=== PATIENT | female | born 1955 | race Caucasian/White ===

== ENCOUNTER 2018-05-21 11:20 | Emergency (ER) | payer MEDICARE ==
[2018-05-21] MEDS ORDERED: BABY ASPIRIN 81 MG CHEW PO ONE (11:54)
[2018-05-21] MEDS ORDERED: NITRO-BID 2% UD PACKETS TOP ONE (11:54)
[2018-05-21] MEDS ORDERED: Sodium Chloride 0.9% 1000 ML 1,000 ML IV SCH (12:00)
[2018-05-21] MEDS ORDERED: BABY ASPIRIN 81 MG CHEW ONE (12:02)
--- NOTE | 2018-05-21 12:02 | ERPHSYRPT ---
- History of Present Illness Time Seen by Provider: 05/21/18 11:45 Historian: patient Physician History: PATIENT WITH A HISTORY OF CORONARY ARTERY DISEASE, ATRIAL FIBRILLATION, PACEMAKER, DEFIBRILLATOR COMPLAINS OF SUBSTERNAL CHEST PAINS SINCE LAST NIGHT INTERMITTENT. DENIES DYSPNEA, DIAPHORESIS OR CHEST PAIN UPON ARRIVAL. STATES PAIN SCALE 4/10. Timing/Duration: yesterday Quality: pressure Location: substernal Chest Pain Radiation: no radiation Severity of Pain-Max: mild Severity of Pain-Current: none Modifying Factors: Improves With: nothing Associated Symptoms: denies symptoms Prior Chest Pain/Cardiac Workup: stress test Nitro Today/Relief: no nitro taken today Aspirin Treatment Today: 81 mg x 4, provided by ED Allergies/Adverse Reactions: lorazepam Adverse Reaction (Intermediate, Verified 05/21/18 12:43) "made me weird" Home Medications: Alprazolam 1 mg [Xanax 1 mg] 2 mg PO HSPRN PRN 03/30/13 [History] Amlodipine Besylate 5 mg [Norvasc 5 mg] 5 mg PO HS 03/30/13 [History] Carvedilol 3.125 mg [Coreg 3.125 MG] 12.5 mg PO BID 03/30/13 [History] Furosemide 40 mg [Lasix 40 MG] 40 mg PO DAILY 03/30/13 [History] Lisinopril 10 mg [Zestril 10 MG] 10 mg PO BID 03/30/13 [History] Amlodipine Besylate 2.5 mg PO BID 05/21/18 [History] Atorvastatin Calcium 80 mg PO DAILY 05/21/18 [History] Doxycycline Hyclate 100 mg [Vibramycin 100 MG] 100 mg PO BID 05/21/18 [ History] Levothyroxine Sodium 50 mcg PO DAILY 05/21/18 [History] Potassium Chloride 10 meq PO DAILY 05/21/18 [History] Rivaroxaban [Xarelto] 20 mg PO DAILY 05/21/18 [History] Triamcinolone 0.1% Cream [Kenalog 0.1% Cream 15 gm] 15 gm TOP UD 05/21/18 [History] Hx Tetanus, Diphtheria Vaccination/Date Given: Yes Hx Influenza Vaccination/Date Given: Yes Hx Pneumococcal Vaccination/Date Given: Yes - Review of Systems Constitutional: No Symptoms, No Fever, No Chills Eyes: No Symptoms Ears, Nose, & Throat: No Symptoms Respiratory: No Symptoms, No Cough, No Dyspnea Cardiac: Chest Pain, No Edema, No Syncope Abdominal/Gastrointestinal: No Symptoms, No Abdominal Pain, No Nausea, No Vomiting, No Diarrhea Genitourinary Symptoms: No Symptoms, No Dysuria Musculoskeletal: No Symptoms, No Back Pain, No Neck Pain Skin: No Symptoms, No Rash Neurological: No Dizziness, No Focal Weakness, No Sensory Changes Psychological: No Symptoms Endocrine: No Symptoms All Other Systems: Reviewed and Negative - Past Medical History Pertinent Past Medical History: Yes Cardiac History: Arrhythmia, Hypertension Respiratory History: COPD, Emphysema Musculoskeletal History: No Pertinent History GI Medical History: No Pertinent History History: No Pertinent History Psycho-Social History: Anxiety Female Reproductive Disorders: No Pertinent History - Past Surgical History Past Surgical History: Yes Neuro Surgical History: No Pertinent History Cardiac: Internal Defibrillator Respiratory: No Pertinent History Gastrointestinal: Cholecystectomy Other Surgical History: ROTATOR CUFF, T/A - Social History Smoking Status: Former smoker Exposure to second hand smoke: No Drug Use: none Patient Lives Alone: No - Nursing Vital Signs Nursing Vital Signs: Initial Vital Signs Temperature 97.7 F 05/21/18 11:22 Pulse Rate 60 05/21/18 11:22 Respiratory Rate 16 05/21/18 11:22 Blood Pressure 181/76 05/21/18 11:22 O2 Sat by Pulse Oximetry 97 05/21/18 11:22 Pain Scale Pain Intensity 2 - Physical Exam General Appearance: no apparent distress, alert Eye Exam: PERRL/EOMI, eyes nml inspection Ears, Nose, Throat Exam: normal ENT inspection, moist mucous membranes Neck Exam: normal inspection, non-tender, supple, full range of motion Respiratory Exam: normal breath sounds, lungs clear, No respiratory distress Cardiovascular Exam: regular rate/rhythm, normal heart sounds Gastrointestinal/Abdomen Exam: soft, normal bowel sounds, No tenderness, No mass Back Exam: normal inspection, No CVA tenderness, No vertebral tenderness Extremity Exam: normal inspection, normal range of motion, pedal edema (+1) Neurologic Exam: alert, oriented x 3, cooperative, normal mood/affect, sensation nml, No motor deficits Skin Exam: normal color, warm, dry - Course EKG Interpreted by Me: RATE, Sinus Rhythm, NORMAL AXIS (VENTRICULAR PACED RHYTHM RATE 60) - Radiology Exams Chest X-ray Interpretation: Discussed w/ radiologist, Negative Ordered Tests: Active Orders 24 hr Category Date Time 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 STAT Care 05/21/18 11:56 Active EKG-ER Only STAT Care 05/21/18 11:54 Active IV Insertion STAT Care 05/21/18 11:54 Active Oxygen-ED Only NASAL CANNULA 2 lpm Care 05/21/18 11:54 Active CHEST 1 VIEW (PORTABLE) Stat Exams 05/21/18 11:55 Completed CBC W DIFF Stat Lab 05/21/18 12:00 Completed CMP Stat Lab 05/21/18 12:00 Completed NT PRO BNP Stat Lab 05/21/18 12:00 Completed PROTIME WITH INR Stat Lab 05/21/18 11:54 Completed TROPONIN Q3H Lab 05/21/18 12:00 Completed TROPONIN Q3H Lab 05/21/18 15:00 Ordered TROPONIN Q3H Lab 05/21/18 18:00 Ordered TROPONIN Q3H Lab 05/21/18 21:00 Ordered TROPONIN Q3H Lab 05/22/18 00:00 Ordered Medication Summary Generic Name Dose Route Start Last Admin Trade Name Freq PRN Reason Stop Dose Admin Sodium Chloride 1,000 mls @ 50 mls/hr 05/21/18 12:00 05/21/18 12:08 Sodium Chloride 0.9% 1000 Ml IV 06/20/18 11:59 50 mls/hr .Q20H RODRIGO Administration Discontinued Medications Generic Name Dose Route Start Last Admin Trade Name Freq PRN Reason Stop Dose Admin Aspirin 324 mg 05/21/18 11:54 05/21/18 12:07 Baby Aspirin 81 Mg Chew PO 05/21/18 11:55 324 mg STAT ONE Administration Aspirin Confirm 05/21/18 12:02 Baby Aspirin 81 Mg Chew Administered 05/21/18 12:03 Dose 324 mg .ROUTE .STK-MED ONE Morphine Sulfate 4 mg 05/21/18 13:27 05/21/18 13:36 Morphine Sulfate 4 Mg Inj IV 05/21/18 13:28 Not Given STAT ONE Nitroglycerin 1 gm 05/21/18 11:54 05/21/18 12:08 Nitro-Bid 2% Ud Packets TOP 05/21/18 11:55 1 gm STAT ONE Administration Nitroglycerin Confirm 05/21/18 12:03 Nitro-Bid 2% Ud Packets Administered 05/21/18 12:04 Dose 1 gm .ROUTE .STK-MED ONE Nitroglycerin 0.4 mg 05/21/18 13:20 05/21/18 13:28 Nitrostat 0.4 Mg (Ed) SL 05/21/18 13:21 0.4 mg STAT ONE Administration Ondansetron HCl 4 mg 05/21/18 13:27 05/21/18 13:31 Zofran 4 Mg/2 Ml Vial IV 05/21/18 13:28 4 mg STAT ONE Administration Ondansetron HCl Confirm 05/21/18 13:30 Zofran 4 Mg/2 Ml Vial Administered 05/21/18 13:31 Dose 4 mg .ROUTE .STK-MED ONE Lab/Rad Data: Laboratory Result Diagrams 05/21/18 12:00 05/21/18 12:00 Laboratory Results 05/21/18 05/21/18 05/21/18 Range/Units 12:00 12:00 12:00 WBC 6.6 (4.0-10.5) K/mm3 RBC 4.29 (4.1-5.4) M/mm3 Hgb 12.2 (12.0-16.0) gm/dl Hct 38.1 (35-47) % MCV 88.8 (78-100) fl MCH 28.4 (26-32) pg MCHC 32.0 (32-36) g/dl RDW 13.8 (11.5-14.0) % Plt Count 176 (150-450) K/mm3 MPV 11.9 H (6-9.5) fl Gran % 64.8 (36.0-66.0) % Eos # (Auto) 0.19 (0-0.5) Absolute Lymphs (auto) 1.60 (1.0-4.6) Absolute Monos (auto) 0.51 (0.0-1.3) Lymphocytes % 24.3 (24.0-44.0) % Monocytes % 7.7 (0.0-12.0) % Eosinophils % 2.9 (0.00-5.0) % Basophils % 0.3 (0.0-0.4) % Absolute Granulocytes 4.27 (1.4-6.9) Basophils # 0.02 (0-0.4) PT (9.95-12.35) SECONDS INR (0.8-3.0) Sodium 144 (137-145) mmol/L Potassium 3.5 (3.5-5.1) mmol/L Chloride 106 (98-107) mmol/L Carbon Dioxide 28 (22-30) mmol/L Anion Gap 13.4 (5-15) MEQ/L BUN 9 (7-17) mg/dL Creatinine 0.98 (0.52-1.04) mg/dL Estimated GFR > 60.0 ML/MIN Glucose 108 H (74-106) mg/dL Calcium 8.7 (8.4-10.2) mg/dL Total Bilirubin 0.60 (0.2-1.3) mg/dL AST 22 (14-36) U/L ALT 20 (0-35) U/L Alkaline Phosphatase 104 (38-126) U/L Troponin I < 0.012 (0.000-0.034) ng/mL NT-Pro-B Natriuret Pep 1260 H (0-900) pg/mL Serum Total Protein 7.3 (6.3-8.2) g/dL Albumin 4.3 (3.5-5.0) g/dL 05/21/18 Range/Units 11:54 WBC (4.0-10.5) K/mm3 RBC (4.1-5.4) M/mm3 Hgb (12.0-16.0) gm/dl Hct (35-47) % MCV (78-100) fl MCH (26-32) pg MCHC (32-36) g/dl RDW (11.5-14.0) % Plt Count (150-450) K/mm3 MPV (6-9.5) fl Gran % (36.0-66.0) % Eos # (Auto) (0-0.5) Absolute Lymphs (auto) (1.0-4.6) Absolute Monos (auto) (0.0-1.3) Lymphocytes % (24.0-44.0) % Monocytes % (0.0-12.0) % Eosinophils % (0.00-5.0) % Basophils % (0.0-0.4) % Absolute Granulocytes (1.4-6.9) Basophils # (0-0.4) PT 20.0 H (9.95-12.35) SECONDS INR 1.71 (0.8-3.0) Sodium (137-145) mmol/L Potassium (3.5-5.1) mmol/L Chloride (98-107) mmol/L Carbon Dioxide (22-30) mmol/L Anion Gap (5-15) MEQ/L BUN (7-17) mg/dL Creatinine (0.52-1.04) mg/dL Estimated GFR ML/MIN Glucose (74-106) mg/dL Calcium (8.4-10.2) mg/dL Total Bilirubin (0.2-1.3) mg/dL AST (14-36) U/L ALT (0-35) U/L Alkaline Phosphatase (38-126) U/L Troponin I (0.000-0.034) ng/mL NT-Pro-B Natriuret Pep (0-900) pg/mL Serum Total Protein (6.3-8.2) g/dL Albumin (3.5-5.0) g/dL - Progress Progress: improved Progress Note: 05/21/18 14:27 ADMINISTERED NTG 0.4MG SL, NITROPASTE 1" ANTERIOR CHEST WALL Discussed with : Other (DISCUSSED WITH DR CHIN AT 1400 ACCEPTS TRANSFER TO [facility]IA [facility]) - Departure Time of Disposition: 14:50 Departure Disposition: Transfer Clinical Impression: ACUTE CHEST PAIN Condition: Stable Critical Care Time: No Referrals: SUJATHA CONTRERAS [Primary Care Provider] -
[2018-05-21] MEDS ORDERED: Sodium Chloride 0.9% 1000 ML 1,000 ML ONE (12:03)
[2018-05-21] MEDS ORDERED: NITRO-BID 2% UD PACKETS ONE (12:03)
[2018-05-21 12:12] LABS: BASOPHIL % 0.3 % (0.0-0.4); Basophil (Absolute #) 0.02 (0-0.4); Eosinophil % 2.9 % (0.00-5.0); Eosinophil (Absolute #) 0.19 (0-0.5); Granulocyte Absolute (ANC) 4.27 (1.4-6.9); Granulocytes % 64.8 % (36.0-66.0); Hematocrit 38.1 % (35-47); Hemoglobin 12.2 gm/dl (12.0-16.0); Lymphocytes % 24.3 % (24.0-44.0); Mean Cell Volume 88.8 fl (78-100); Mean Corpuscular Hemoglobin 28.4 pg (26-32); Mean Platelet Volume 11.9 fl (6-9.5); Monocyte (Absolute #) 0.51 (0.0-1.3); Monocytes % 7.7 % (0.0-12.0); Platelet Count 176 K/mm3 (150-450); Red Blood Count 4.29 M/mm3 (4.1-5.4); Red Cell Distribution Width 13.8 % (11.5-14.0); White Blood Count 6.6 K/mm3 (4.0-10.5)
--- NOTE | 2018-05-21 12:19 | XRAY ---
Indication: Chest pain and short of breath. History COPD and asthma. Comparison: October 03, 2015. Portable chest is clear again with incidental scattered calcified granulomas. Heart remains borderline enlarged again with left-sided single lead pacemaker. Vascularity normal. Bony thorax intact. Impression: Nonacute chest with chronic features.
[2018-05-21 12:21] LABS: INR 1.71 (0.8-3.0)
[2018-05-21 12:37] LABS: ALBUMIN 4.3 g/dL (3.5-5.0); ALKALINE PHOSPHATASE 104 U/L (38-126); ANION GAP 13.4 MEQ/L (5-15); BLOOD UREA NITROGEN 9 mg/dL (7-17); CHLORIDE 106 mmol/L (98-107); Calcium 8.7 mg/dL (8.4-10.2); Carbon Dioxide 28 mmol/L (22-30); Creatinine 1 0.98 mg/dL (0.52-1.04); Glucose 108 mg/dL (74-106); NT PRO BNP 1260 pg/mL (0-900); Potassium 3.5 mmol/L (3.5-5.1); SGOT/AST 22 U/L (14-36); SGPT/ALT 20 U/L (0-35); SODIUM 144 mmol/L (137-145); Total Protein 7.3 g/dL (6.3-8.2)
[2018-05-21] MEDS ORDERED: Nitrostat 0.4 MG (ED) SL ONE (13:20)
[2018-05-21] MEDS ORDERED: MORPHINE SULFATE 4 MG INJ IV ONE (13:27)
[2018-05-21] MEDS ORDERED: Zofran 4 MG/2 ML VIAL IV ONE (13:27)
[2018-05-21] MEDS ORDERED: Zofran 4 MG/2 ML VIAL ONE (13:30)
[2018-05-21 15:20] VITALS: BP 156/96; PULSE 62; O2SAT 98
== END 2018-05-21 15:29 | disposition short-term general hospital (02) ==
LOC: ED 11:20
DX: R07.9 Chest pain, unspecified (principal); Z79.899 Other long term (current) drug therapy
CPT/HCPCS: 36000; 36415; 71045; 80053; 83880; 84484; 85025; 85610; 93005; 93041; 96360; 96361; 96374; 96375; 99285; J2405; A9270-GY

== ENCOUNTER 2019-07-30 22:34 | Emergency (ER) | payer MEDICARE ==
--- NOTE | 2019-07-30 23:11 | ERPHSYRPT ---
- History of Present Illness Time Seen by Provider: 07/30/19 23:01 Source: patient, family Exam Limitations: no limitations Physician History: INCREASED HX OF DYSPNEA --POS: COPD/CHF HX DENIES CP/P POS: INCREASED SOB WITH ACTIVITY Timing/Duration: week(s) (1), worse Activities at Onset: activity, emotional stress Severity of Dyspnea-Max: mild Severity of Dyspnea-Current: mild Possible Cause: occasional episodes Modifying Factors: Improves With: activity, exertion Associated Symptoms: cough, wheezing, weakness, ankle swelling, leg swelling, No calf pain International travel in last 2 weeks: No Allergies/Adverse Reactions: lorazepam Adverse Reaction (Intermediate, Verified 07/30/19 23:12) "made me weird" Home Medications: Alprazolam 1 mg [Xanax 1 mg] 2 mg PO HSPRN PRN 03/30/13 [History] Carvedilol 3.125 mg [Coreg 3.125 MG] 25 mg PO BID 03/30/13 [History] Levothyroxine Sodium 75 mcg PO DAILY 05/21/18 [History] Potassium Chloride 10 meq PO DAILY 05/21/18 [History] Rivaroxaban [Xarelto] 20 mg PO DAILY 05/21/18 [History] Amitriptyline HCl 25 mg [Elavil 25 mg] 25 mg PO DAILY 07/30/19 [History] Atorvastatin Calcium 80 mg PO 07/30/19 [History] Magnesium Oxide 400 mg [Mag-Ox 400] 400 mg PO DAILY 07/30/19 [History] Sacubitril/Valsartan [Entresto 24 mg-26 mg Tablet] 1 each PO DAILY 07/30/19 [ History] Spironolactone 25 mg [Aldactone 25 MG] 12.5 mg PO DAILY 07/30/19 [History] Hx Tetanus, Diphtheria Vaccination/Date Given: Yes Hx Influenza Vaccination/Date Given: Yes Hx Pneumococcal Vaccination/Date Given: Yes - Review of Systems Constitutional: Fatigue, Other (DYSPNEA) Eyes: No Symptoms Ears, Nose, & Throat: Nose Congestion, Mouth Pain Respiratory: Cough, Dyspnea, Dyspnea on Exertion (REY), Wheezing Cardiac: Edema, No Chest Pain, No Palpitations, No Syncope Abdominal/Gastrointestinal: No Symptoms, No Nausea, No Vomiting, No Diarrhea Genitourinary Symptoms: No Symptoms Musculoskeletal: Back Pain, Neck Pain, Joint Pain Skin: No Symptoms Neurological: No Symptoms, No Dizziness, No Gait Changes, No Headache Psychological: No Symptoms Endocrine: No Symptoms Hematologic/Lymphatic: No Symptoms All Other Systems: Reviewed and Negative - Past Medical History Pertinent Past Medical History: Yes Cardiac History: Arrhythmia, Hypertension Respiratory History: COPD, Emphysema Musculoskeletal History: No Pertinent History GI Medical History: No Pertinent History History: No Pertinent History Psycho-Social History: Anxiety Female Reproductive Disorders: No Pertinent History Other Medical History: CARDIOMYOPATHY - Past Surgical History Past Surgical History: Yes Neuro Surgical History: No Pertinent History Cardiac: Internal Defibrillator Respiratory: No Pertinent History Gastrointestinal: Cholecystectomy Other Surgical History: ROTATOR CUFF, T/A - Social History Smoking Status: Former smoker Exposure to second hand smoke: No Drug Use: none Patient Lives Alone: No - Nursing Vital Signs Nursing Vital Signs: Initial Vital Signs Temperature 98.7 F 07/30/19 22:36 Pulse Rate 95 H 07/30/19 22:36 Respiratory Rate 24 07/30/19 22:36 Blood Pressure 114/57 07/30/19 22:36 O2 Sat by Pulse Oximetry 98 07/30/19 22:36 Pain Scale Pain Intensity 0 - Physical Exam General Appearance: mild distress, obese Eye Exam: PERRL/EOMI Ears, Nose, Throat Exam: hearing grossly normal, normal ENT inspection, normal pharynx, nasal congestion, No pharyngeal erythema Neck Exam: other (POS: DJD WITH DECREASED ROM), No meningismus Respiratory Exam: chest tenderness, diminished breath sounds, prolonged expirations, crackles/rales, wheezing (SCATTERED) Cardiovascular/Chest Exam: regular rate/rhythm, edema (1+ PITTING EDEMA BILATERAL LOWER EXTREMITIES ) Abdominal/Gastrointestinal Exam: soft, normal bowel sounds, No tenderness, No distention, No mass, No guarding Extremity Exam: no calf tenderness, pedal edema Neurologic Exam: alert, oriented x 3, cooperative, 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 tested, normal mood/affect Skin Exam: normal color, No dry, No rash Lymphatic Exam: No adenopathy SpO2 Interpretation: normal SpO2: 94 O2 Delivery: Room Air - Course Nursing assessment & vital signs reviewed: Yes EKG Interpreted by Me: Sinus Rhythm, Non-specific ST Changes Ordered Tests: Active Orders 24 hr Category Date Time Status CHEST 1 VIEW (PORTABLE) Stat Exams 07/30/19 23:25 Taken CBC W DIFF Stat Lab 07/30/19 23:10 Completed CMP Stat Lab 07/30/19 23:10 Completed NT PRO BNP Stat Lab 07/30/19 23:42 Completed TROPONIN Q3H Lab 07/30/19 23:45 Completed TROPONIN Q3H Lab 07/31/19 02:10 Completed TROPONIN Q3H Lab 07/31/19 05:00 Ordered TROPONIN Q3H Lab 07/31/19 08:00 Ordered TROPONIN Q3H Lab 07/31/19 11:00 Ordered TROPONIN Q3H Lab 07/31/19 14:00 Ordered TROPONIN Q3H Lab 07/31/19 17:00 Ordered TROPONIN Q3H Lab 07/31/19 20:00 Ordered TROPONIN Q3H Lab 07/31/19 23:00 Ordered Peak Expiratory Flow Rate ONCE RT 07/31/19 00:00 Active Respiratory Therapy Assessment DAILY RT 07/31/19 00:00 Active Medication Summary Discontinued Medications Generic Name Dose Route Start Last Admin Trade Name Freq PRN Reason Stop Dose Admin Albuterol/Ipratropium 3 ml 07/30/19 23:43 07/30/19 23:56 Duoneb 0.5-3 Mg/3 Ml Neb IH 07/30/19 23:44 3 ml STAT ONE Administration Albuterol/Ipratropium Confirm 07/30/19 23:56 Duoneb 0.5-3 Mg/3 Ml Neb Administered 07/30/19 23:57 Dose 3 ml IH .STK-MED ONE Lab/Rad Data: Laboratory Result Diagrams 07/30/19 23:10 07/30/19 23:10 Laboratory Results 07/31/19 07/30/19 07/30/19 Range/Units 02:10 23:45 23:42 WBC (4.0-10.5) K/mm3 RBC (4.1-5.4) M/mm3 Hgb (12.0-16.0) gm/dl Hct (35-47) % MCV (78-100) fl MCH (26-32) pg MCHC (32-36) g/dl RDW (11.5-14.0) % Plt Count (150-450) K/mm3 MPV (6-9.5) fl Gran % (36.0-66.0) % Eos # (Auto) (0-0.5) Absolute Lymphs (auto) (1.0-4.6) Absolute Monos (auto) (0.0-1.3) Lymphocytes % (24.0-44.0) % Monocytes % (0.0-12.0) % Eosinophils % (0.00-5.0) % Basophils % (0.0-0.4) % Absolute Granulocytes (1.4-6.9) Basophils # (0-0.4) Sodium (137-145) mmol/L Potassium (3.5-5.1) mmol/L Chloride (98-107) mmol/L Carbon Dioxide (22-30) mmol/L Anion Gap (5-15) MEQ/L BUN (7-17) mg/dL Creatinine (0.52-1.04) mg/dL Estimated GFR ML/MIN Glucose (74-106) mg/dL Calcium (8.4-10.2) mg/dL Total Bilirubin (0.2-1.3) mg/dL AST (14-36) U/L ALT (0-35) U/L Alkaline Phosphatase (38-126) U/L Troponin I 0.030 0.030 (0.000-0.034) ng/mL NT-Pro-B Natriuret Pep 686 (0-900) pg/mL Serum Total Protein (6.3-8.2) g/dL Albumin (3.5-5.0) g/dL Influenza Type A Ag (NEGATIVE) Influenza Type B Ag (NEGATIVE) RSV (PCR) (Negative) Group A Strep Antibody (NEGATIVE) 07/30/19 07/30/19 07/30/19 Range/Units 23:10 23:10 00:25 WBC 6.4 (4.0-10.5) K/mm3 RBC 3.60 L (4.1-5.4) M/mm3 Hgb 10.3 L (12.0-16.0) gm/dl Hct 33.0 L (35-47) % MCV 91.7 (78-100) fl MCH 28.6 (26-32) pg MCHC 31.2 L (32-36) g/dl RDW 13.4 (11.5-14.0) % Plt Count 199 (150-450) K/mm3 MPV 12.4 H (6-9.5) fl Gran % 60.6 (36.0-66.0) % Eos # (Auto) 0.23 (0-0.5) Absolute Lymphs (auto) 1.45 (1.0-4.6) Absolute Monos (auto) 0.83 (0.0-1.3) Lymphocytes % 22.6 L (24.0-44.0) % Monocytes % 12.9 H (0.0-12.0) % Eosinophils % 3.6 (0.00-5.0) % Basophils % 0.3 (0.0-0.4) % Absolute Granulocytes 3.89 (1.4-6.9) Basophils # 0.02 (0-0.4) Sodium 139 (137-145) mmol/L Potassium 4.4 (3.5-5.1) mmol/L Chloride 106 (98-107) mmol/L Carbon Dioxide 26 (22-30) mmol/L Anion Gap 11.6 (5-15) MEQ/L BUN 14 (7-17) mg/dL Creatinine 1.13 H (0.52-1.04) mg/dL Estimated GFR 51.9 ML/MIN Glucose 115 H (74-106) mg/dL Calcium 8.8 (8.4-10.2) mg/dL Total Bilirubin 0.80 (0.2-1.3) mg/dL AST 32 (14-36) U/L ALT 23 (0-35) U/L Alkaline Phosphatase 66 (38-126) U/L Troponin I (0.000-0.034) ng/mL NT-Pro-B Natriuret Pep (0-900) pg/mL Serum Total Protein 6.2 L (6.3-8.2) g/dL Albumin 3.4 L (3.5-5.0) g/dL Influenza Type A Ag NEGATIVE (NEGATIVE) Influenza Type B Ag NEGATIVE (NEGATIVE) RSV (PCR) NEGATIVE (Negative) Group A Strep Antibody NEGATIVE (NEGATIVE) - Progress Progress: improved, re-examined Air Movement: good Blood Culture(s) Obtained: No Antibiotics given: No Counseled pt/family regarding: lab results, diagnosis, need for follow-up ( FOLLOW UP WITH PRIVATE ACCOUNT SUPPORT REP NEXT WEEK NOTE: PATIENT REFUSES HOSPITAL- -23 OBS AT THIS TIME STATES THAT SHE IS BETTER AND WISHES TO GO HOME ), rad results - Departure Departure Disposition: Home Clinical Impression: COPD exacerbation, Dyspnea on effort CHF (congestive heart failure) Qualifiers: Heart failure type: systolic Heart failure chronicity: acute on chronic Qualified Code(s): I50.23 - Acute on chronic systolic (congestive) heart failure Condition: Stable Critical Care Time: Yes Critical Care Time(excluding separately billable procedures): Critical 30-74 mins Referrals: WILLOW QUILES [Primary Care Provider] - Instructions: Chronic Obstructive Pulmonary Disease, Heart Failure
[2019-07-30 23:35] LABS: Absolute Neutrophil Ct (ANC) 3.89 (1.4-6.9); BASOPHIL % 0.3 % (0.0-0.4); Basophil (Absolute #) 0.02 (0-0.4); Eosinophil % 3.6 % (0.00-5.0); Eosinophil (Absolute #) 0.23 (0-0.5); Hemoglobin 10.3 gm/dl (12.0-16.0); Lymphocyte (Absolute #) 1.45 (1.0-4.6); Lymphocytes % 22.6 % (24.0-44.0); Mean Cell Volume 91.7 fl (78-100); Mean Corpuscular Hemoglobin 28.6 pg (26-32); Mean Corpuscular Hgb Concent. 31.2 g/dl (32-36); Mean Platelet Volume 12.4 fl (6-9.5); Monocyte (Absolute #) 0.83 (0.0-1.3); Monocytes % 12.9 % (0.0-12.0); Neutrophil % 60.6 % (36.0-66.0); Platelet Count 199 K/mm3 (150-450); Red Cell Distribution Width 13.4 % (11.5-14.0); White Blood Count 6.4 K/mm3 (4.0-10.5)
[2019-07-30] MEDS ORDERED: DUONEB 0.5-3 MG/3 ml Neb IH ONE ×2 (23:43→23:56)
[2019-07-30 23:46] LABS: ALBUMIN 3.4 g/dL (3.5-5.0); ANION GAP 11.6 MEQ/L (5-15); BILIRUBIN,TOTAL 0.8 mg/dL (0.2-1.3); Calcium 8.8 mg/dL (8.4-10.2); Creatinine 1 1.13 mg/dL (0.52-1.04); Potassium 4.4 mmol/L (3.5-5.1); Total Protein 6.2 g/dL (6.3-8.2)
[2019-07-31 01:23] LABS: Group A Strep NEGATIVE (NEGATIVE); INFLUENZA A NEGATIVE (NEGATIVE); INFLUENZA B NEGATIVE (NEGATIVE); RESPIRATORY SYNCTIAL VIRUS NEGATIVE (Negative)
[2019-07-31 05:09] VITALS: BP 111/85; PULSE 91; O2SAT 96
--- NOTE | 2019-07-31 08:51 | XRAY ---
Indication: Short of breath and cough. Comparison: May 21, 2018. Portable chest remains clear again with incidental scattered calcified granulomas. Heart remains borderline enlarged with left sided AICD. Bony thorax intact. No new/acute findings. Impression: Stable nonacute chest with chronic features.
== END 2019-07-31 05:09 | disposition home or self-care (01) ==
LOC: ED 22:34
DX: I50.9 Heart failure, unspecified (principal); Z79.899 Other long term (current) drug therapy; J44.9 Chronic obstructive pulmonary disease, unspecified; I10 Essential (primary) hypertension; F41.9 Anxiety disorder, unspecified
CPT/HCPCS: 36415; 71045; 80053; 83880; 84484; 85025; 87631; 87651; 94150; 94640; 99284; 99291; A9270-GY

== ENCOUNTER 2022-07-20 08:37 | Observation (INO) | payer MEDICARE, OTHER ==
[2022-07-20] MEDS ORDERED: Sodium Chloride 0.9% 1000 ML 1,000 ML ONE (08:58)
[2022-07-20] MEDS ORDERED: Zofran 4 MG/2 ML VIAL ONE (08:58)
[2022-07-20] MEDS ORDERED: Zofran 4 MG/2 ML VIAL IV ONE (09:03)
[2022-07-20] MEDS ORDERED: Sodium Chloride 0.9% 1000 ML 1,000 ML IV STA (09:03)
[2022-07-20 09:04] LABS: Absolute Neutrophil Ct (ANC) 3.49 x10^3/uL (1.4-6.9); Basophil (Absolute #) 0.03 x10^3/uL (0-0.4); Eosinophil (Absolute #) 0.11 x10^3/uL (0-0.5); Hematocrit 34.8 % (35-47); Hemoglobin 10.7 g/dL (12.0-16.0); Lymphocyte (Absolute #) 1.15 x10^3/uL (1.0-4.6); Lymphocytes % 20.9 % (24.0-44.0); Mean Cell Volume 100.3 fL (78-100); Mean Corpuscular Hemoglobin 30.8 pg (26-32); Mean Corpuscular Hgb Concent. 30.7 g/dL (32-36); Monocyte (Absolute #) 0.69 x10^3/uL (0.0-1.3); Monocytes % 12.5 % (0.0-12.0); Neutrophil % 63.6 % (36.0-66.0); Platelet Count 271 x10^3/uL (150-450); Red Blood Count 3.47 x10^6/uL (4.1-5.4); Red Cell Distribution Width 13.5 % (11.5-14.0); White Blood Count 5.5 x10^3/uL (4.0-10.5)
[2022-07-20 09:19] LABS: ALBUMIN 3.6 g/dL (3.5-5.0); BILIRUBIN,TOTAL 0.7 mg/dL (0.2-1.3); Calcium 7.7 mg/dL (8.4-10.2); Creatinine 1 2.54 mg/dL (0.52-1.04); EST GLOMERULAR FILTRATION RATE 20.2 ML/MIN; Potassium 3.1 mmol/L (3.5-5.1); Total Protein 6.8 g/dL (6.3-8.2)
[2022-07-20] MEDS ORDERED: MORPHINE SULFATE 4 MG INJ IV ONE (09:29)
[2022-07-20] MEDS ORDERED: Reglan 10 MG/2 ML IV ONE (09:29)
[2022-07-20] MEDS ORDERED: MORPHINE SULFATE 4 MG INJ ONE (09:50)
[2022-07-20] MEDS ORDERED: Reglan 10 MG/2 ML ONE (09:50)
[2022-07-20 09:52] LABS: MAGNESIUM 1.3 mg/dL (1.6-2.3)
[2022-07-20] MEDS ORDERED: MAGNESIUM SULF 2 G/50 ML BAG 2 GM/50 ML PIGGYBACK IV ONE (10:18)
[2022-07-20] MEDS ORDERED: Klor Con PO ONE ×2 (10:19→10:22)
[2022-07-20] MEDS ORDERED: Magnesium 1 Gm / 100 Ml D5W*** 0 ML IV ONE (10:22)
[2022-07-20 11:00] LABS: INFLUENZA A NEGATIVE (NEGATIVE); INFLUENZA B NEGATIVE (NEGATIVE); RESPIRATORY SYNCTIAL VIRUS NEGATIVE (Negative); SARS-CoV-2 Xpert Express NEGATIVE (NEGATIVE)
[2022-07-20 11:22] LABS: Mucus SLIGHT /HPF (NEGATIVE); WBC 0-2 /HPF (0-5)
[2022-07-20 11:23] LABS: Appearance CLEAR (CLEAR); Bilirubin NEGATIVE (NEGATIVE); Dipstick done @ ? MAIN LAB; Glucose NEGATIVE (NEGATIVE); Ketones NEGATIVE (NEGATIVE); Nitrite NEGATIVE (NEGATIVE); Ph 5.5 (5-6); Protein,Urine Dip NEGATIVE (Negative); RBC NEGATIVE Ery/ul (0-5); Specific Gravity 1.025 (1.005-1.025); Urine Cultured Indicated? NO; Urobilinogen 0.2 mg/dL (0-1)
--- NOTE | 2022-07-20 12:59 | ERPHSYRPT ---
- History of Present Illness Time Seen by Provider: 07/20/22 09:28 Historian: patient Exam Limitations: no limitations Patient Subjective Stated Complaint: C/O N/V X 3 days and diarrhea started this morning. Also c/o chills. Triage Nursing Assessment: Patient brought back to ED in W/C. No SOB. She is alert and oriented. Wound vac noted to LLE; patient states Dr. Edwards is the only person allowed to handle the wound vac. Patient's skin is dry and loose. She is cough and dry heaving during assessment. Physician History: 67 years old morbidly obese female with history of atrial fibrillation on Xarelto, COPD, congestive heart failure presented to the ER with chief complaint of nausea vomiting with abdominal pain going on for the last 3 days. Patient reports she has a wound VAC on left lower leg after she fell and is under treatment with orthopedic surgery, was given doxycycline but she started to feel nausea vomiting with abdominal discomfort, she stopped taking 3 days ago and has been taking Zofran with no relief of symptoms. Reports generalized abdominal cramping without any significant aggravating or relieving factor and started to have couple of episodes of loose stool this morning. Subjective feeling of fever and chills as well. Has chronic cough which is not any worse than usual. Timing/Duration: day(s) (3), gradual onset, worse Activities at Onset: rest Quality: cramping Abdominal Pain Onset Location: generalized abdomen Pain Radiation: no radiation Severity of Pain-Max: moderate Severity of Pain-Current: moderate Modifying Factors: Worsens With: vomiting Associated Symptoms: diarrhea, fever/chills, nausea, vomiting Previous symptoms: no prior history Allergies/Adverse Reactions: lorazepam Adverse Reaction (Intermediate, Verified 07/20/22 08:41) "made me weird" Home Medications: Rivaroxaban [Xarelto] 20 mg PO DAILY 05/21/18 [History] Atorvastatin Calcium 80 mg PO HS 07/30/19 [History] ALPRAZolam [Alprazolam] 1 tab PO BID 07/20/22 [History] Allopurinol 100 mg [Zyloprim 100 mg] 1 tab PO DAILY 07/20/22 [History] Amiodarone HCl 1 tab PO DAILY 07/20/22 [History] Bumetanide 1 tab PO BID 07/20/22 [History] Carvedilol 12.5 mg [Coreg 12.5 mg] 1 tab PO BID 07/20/22 [History] Cholecalciferol (Vitamin D3) [D3-5000] 1 cap PO DAILY 07/20/22 [History] Ezetimibe 10 mg [Zetia 10 MG] 1 tab PO HS 07/20/22 [History] Levothyroxine Sodium 112 Mcg [Synthroid 112 Mcg] 1 tab PO DAILY 07/20/22 [History] Ondansetron [Ondansetron Odt ] 1 tab PO Q8H PRN PRN 07/20/22 [History] Potassium Chloride Tab* [Klor Con] 3 tab PO DAILY 07/20/22 [History] Hx Tetanus, Diphtheria Vaccination/Date Given: Yes Hx Influenza Vaccination/Date Given: Yes Hx Pneumococcal Vaccination/Date Given: Yes Immunizations Up to Date: Yes Travel Risk - International Travel Have you traveled outside of the country in past 3 weeks: No - Coronavirus Screening Are you exhibiting any of the following symptoms?: Yes Symptoms: Vomiting/Diarrhea - Vaccine Status Have you recieved a Covid-19 vaccination: Yes 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: [employer] - Review of Systems Constitutional: Fever, Chills, Fatigue, Weakness Eyes: No Symptoms Ears, Nose, & Throat: No Symptoms Respiratory: Cough Cardiac: No Symptoms Abdominal/Gastrointestinal: Abdominal Pain, Nausea, Vomiting, Diarrhea Genitourinary Symptoms: No Symptoms Musculoskeletal: Arthralgias Skin: Skin Lesions Neurological: No Symptoms Psychological: Anxiety Endocrine: No Symptoms Hematologic/Lymphatic: No Symptoms Immunological/Allergic: No Symptoms - Past Medical History Pertinent Past Medical History: Yes Cardiac History: Arrhythmia, High Cholesterol, Hypertension Respiratory History: COPD, Emphysema Endocrine Medical History: Hypothyroidism Musculoskeletal History: No Pertinent History GI Medical History: No Pertinent History History: No Pertinent History Psycho-Social History: Anxiety Female Reproductive Disorders: No Pertinent History Other Medical History: CARDIOMYOPATHY, Gout - Past Surgical History Past Surgical History: Yes Neuro Surgical History: No Pertinent History Cardiac: Internal Defibrillator Respiratory: No Pertinent History Gastrointestinal: Cholecystectomy Musculoskeletal: Orthopedic Surgery Other Surgical History: ROTATOR CUFF, T/A - Social History Smoking Status: Former smoker Exposure to second hand smoke: No Drug Use: none Patient Lives Alone: No - Nursing Vital Signs Nursing Vital Signs: Initial Vital Signs Temperature 97.8 F 07/20/22 08:44 Pulse Rate 62 07/20/22 08:44 Respiratory Rate 17 07/20/22 08:44 Blood Pressure 152/68 07/20/22 08:44 O2 Sat by Pulse Oximetry 97 07/20/22 08:44 Pain Scale Pain Intensity 0 - Physical Exam General Appearance: no apparent distress, alert Eye Exam: PERRL/EOMI Ears, Nose, Throat Exam: normal ENT inspection, pharynx normal Neck Exam: normal inspection, supple, full range of motion Respiratory Exam: normal breath sounds, lungs clear Cardiovascular Exam: regular rate/rhythm, normal heart sounds Gastrointestinal/Abdomen Exam: soft, normal bowel sounds, tenderness (Mild diffuse generalized tenderness without guarding or rebound tenderness) Back Exam: normal inspection Extremity Exam: normal range of motion, pelvis stable, other (Left leg wound VAC in place) Neurologic Exam: alert, oriented x 3, cooperative Skin Exam: normal color SpO2 Interpretation: normal SpO2: 95 O2 Delivery: Room Air Ordered Tests: Active Orders 24 hr Category Date Time Status IV Insertion STAT Care 07/20/22 09:29 Active ABDOMEN AND PELVIS W/0 CONTRAS [CT] Stat Exams 07/20/22 09:29 Taken BNP [NT PRO BNP] Stat Lab 07/20/22 09:00 Completed CBC W DIFF Stat Lab 07/20/22 09:03 Completed CMP Stat Lab 07/20/22 09:03 Completed LIPASE Stat Lab 07/20/22 09:00 Completed Lactic Acid Stat Lab 07/20/22 09:41 Completed MAG [MAGNESIUM] Stat Lab 07/20/22 09:00 Completed TROPONIN Q3H Lab 07/20/22 09:00 Completed TROPONIN Q3H Lab 07/20/22 12:45 Received TROPONIN Q3H Lab 07/20/22 15:30 Ordered TROPONIN Q3H Lab 07/20/22 18:30 Ordered UA W/RFX CULTURE Stat Lab 07/20/22 11:13 Completed Medication Summary Discontinued Medications Generic Name Dose Route Start Last Admin Trade Name Freq PRN Reason Stop Dose Admin Sodium Chloride Confirm 07/20/22 08:58 Sodium Chloride 0.9% 1000 Ml Administered 07/20/22 08:59 Dose 1,000 mls @ ud .ROUTE .STK-MED ONE Sodium Chloride 1,000 mls @ 999 mls/hr 07/20/22 09:03 07/20/22 10:13 Sodium Chloride 0.9% 1000 Ml IV 07/20/22 10:03 Infused .Q1H1M STA Infusion Magnesium Sulfate/Water 2 gm in 50 mls @ 100 mls/hr 07/20/22 10:18 07/20/22 11:04 Magnesium Sulf 2 G/50 Ml Bag IV 07/20/22 10:47 Infused ONCE ONE Infusion Magnesium Sulfate/Dextrose Confirm 07/20/22 10:22 Magnesium 1 Gm / 100 Ml D5w Administered 07/20/22 10:23 Dose 100 mls @ ud IV .STK-MED ONE Metoclopramide HCl 10 mg 07/20/22 09:29 07/20/22 09:51 Metoclopramide Hcl 10 Mg/2 Ml Vial IV 07/20/22 09:30 10 mg STAT ONE Administration Metoclopramide HCl Confirm 07/20/22 09:50 Metoclopramide Hcl 10 Mg/2 Ml Vial Administered 07/20/22 09:51 Dose 10 mg .ROUTE .STK-MED ONE Morphine Sulfate 4 mg 07/20/22 09:29 07/20/22 09:51 Morphine Sulfate 4 Mg/Ml Injection IV 07/20/22 09:30 4 mg STAT ONE Administration Morphine Sulfate Confirm 07/20/22 09:50 Morphine Sulfate 4 Mg/Ml Injection Administered 07/20/22 09:51 Dose 4 mg .ROUTE .STK-MED ONE Ondansetron HCl Confirm 07/20/22 08:58 Ondansetron Hcl 4 Mg/2 Ml Vial Administered 07/20/22 08:59 Dose 4 mg .ROUTE .STK-MED ONE Ondansetron HCl 4 mg 07/20/22 09:03 07/20/22 09:04 Ondansetron Hcl 4 Mg/2 Ml Vial IV 07/20/22 09:04 4 mg STAT ONE Administration Potassium Chloride 40 meq 07/20/22 10:19 07/20/22 10:23 Potassium Chloride Tab 10 Meq Tab PO 07/20/22 10:20 40 meq STAT ONE Administration Potassium Chloride Confirm 07/20/22 10:22 Potassium Chloride Tab 10 Meq Tab Administered 07/20/22 10:23 Dose 40 meq PO .STK-MED ONE Lab/Rad Data: Laboratory Result Diagrams 07/20/22 09:03 07/20/22 09:03 Laboratory Results 11/07/20/22 07/20/22 Range/Units 11:13 10:24 09:41 WBC (4.0-10.5) x10^3/uL RBC (4.1-5.4) x10^6/uL Hgb (12.0-16.0) g/dL Hct (35-47) % MCV (78-100) fL MCH (26-32) pg MCHC (32-36) g/dL RDW (11.5-14.0) % Plt Count (150-450) x10^3/uL MPV (7.5-11.0) fL Gran % (36.0-66.0) % Immature Gran % (Auto) (0.00-0.4) % Nucleat RBC Rel Count (0.00-0.1) % Eos # (Auto) (0-0.5) x10^3/uL Immature Gran # (Auto) (0.00-0.03) x10^3u/L Absolute Lymphs (auto) (1.0-4.6) x10^3/uL Absolute Monos (auto) (0.0-1.3) x10^3/uL Absolute Nucleated RBC (0.00-0.01) x10^3u/L Lymphocytes % (24.0-44.0) % Monocytes % (0.0-12.0) % Eosinophils % (0.00-5.0) % Basophils % (0.0-0.4) % Absolute Granulocytes (1.4-6.9) x10^3/uL Basophils # (0-0.4) x10^3/uL Sodium (137-145) mmol/L Potassium (3.5-5.1) mmol/L Chloride (98-107) mmol/L Carbon Dioxide (22-30) mmol/L Anion Gap (5-15) MEQ/L BUN (7-17) mg/dL Creatinine (0.52-1.04) mg/dL Estimated GFR ML/MIN Glucose (74-106) mg/dL Lactic Acid 2.1 H (0.4-2.0) Calcium (8.4-10.2) mg/dL Magnesium (1.6-2.3) mg/dL Total Bilirubin (0.2-1.3) mg/dL AST (14-36) U/L ALT (0-35) U/L Alkaline Phosphatase (38-126) U/L Troponin I (0.000-0.034) ng/mL NT-Pro-B Natriuret Pep (0-900) pg/mL Serum Total Protein (6.3-8.2) g/dL Albumin (3.5-5.0) g/dL Lipase (23-300) U/L Urinalys Dipstick Clnc MAIN LAB Urine Color YELLOW (YELLOW) Urine Appearance CLEAR (CLEAR) Urine pH 5.5 (5-6) Ur Specific [place] 1.025 (1.005-1.025) POC Urine Protein Conf NEGATIVE (Negative) Urine Ketones NEGATIVE (NEGATIVE) Urine Nitrite NEGATIVE (NEGATIVE) Urine Bilirubin NEGATIVE (NEGATIVE) Urine Urobilinogen 0.2 (0-1) mg/dL Urine Leukocytes NEGATIVE (NEGATIVE) Urine WBC (Auto) 0-2 (0-5) /HPF Urine RBC (Auto) NONE (0-2) /HPF U Hyaline Cast (Auto) 6-10 A (0-2) /LPF U Epithel Cells (Auto) NONE (FEW) /HPF Urine Bacteria (Auto) NONE (NEGATIVE) /HPF Urine RBC NEGATIVE (0-5) [place]/ul Urine Mucus (Auto) SLIGHT A (NEGATIVE) /HPF Ur Culture Indicated? NO Urine Glucose NEGATIVE (NEGATIVE) mg/dL Influenza Type A Ag NEGATIVE (NEGATIVE) Influenza Type B Ag NEGATIVE (NEGATIVE) RSV (PCR) NEGATIVE (Negative) SARS-CoV-2 (PCR) NEGATIVE (NEGATIVE) 07/20/22 07/20/22 07/20/22 Range/Units 09:03 09:03 09:00 WBC 5.5 (4.0-10.5) x10^3/uL RBC 3.47 L (4.1-5.4) x10^6/uL Hgb 10.7 L (12.0-16.0) g/dL Hct 34.8 L (35-47) % MCV 100.3 H (78-100) fL MCH 30.8 (26-32) pg MCHC 30.7 L (32-36) g/dL RDW 13.5 (11.5-14.0) % Plt Count 271 (150-450) x10^3/uL MPV 11.0 (7.5-11.0) fL Gran % 63.6 (36.0-66.0) % Immature Gran % (Auto) 0.5 H (0.00-0.4) % Nucleat RBC Rel Count 0.0 (0.00-0.1) % Eos # (Auto) 0.11 (0-0.5) x10^3/uL Immature Gran # (Auto) 0.03 (0.00-0.03) x10^3u/L Absolute Lymphs (auto) 1.15 (1.0-4.6) x10^3/uL Absolute Monos (auto) 0.69 (0.0-1.3) x10^3/uL Absolute Nucleated RBC 0.00 (0.00-0.01) x10^3u/L Lymphocytes % 20.9 L (24.0-44.0) % Monocytes % 12.5 H (0.0-12.0) % Eosinophils % 2.0 (0.00-5.0) % Basophils % 0.5 (0.0-0.4) % Absolute Granulocytes 3.49 (1.4-6.9) x10^3/uL Basophils # 0.03 (0-0.4) x10^3/uL Sodium 136 L (137-145) mmol/L Potassium 3.1 L (3.5-5.1) mmol/L Chloride 97 L (98-107) mmol/L Carbon Dioxide 28 (22-30) mmol/L Anion Gap 13.0 (5-15) MEQ/L BUN 34 H (7-17) mg/dL Creatinine 2.54 H (0.52-1.04) mg/dL Estimated GFR 20.2 ML/MIN Glucose 140 H (74-106) mg/dL Lactic Acid (0.4-2.0) Calcium 7.7 L (8.4-10.2) mg/dL Magnesium (1.6-2.3) mg/dL Total Bilirubin 0.70 (0.2-1.3) mg/dL AST 58 H (14-36) U/L ALT 42 H (0-35) U/L Alkaline Phosphatase 130 H (38-126) U/L Troponin I 0.022 (0.000-0.034) ng/mL NT-Pro-B Natriuret Pep (0-900) pg/mL Serum Total Protein 6.8 (6.3-8.2) g/dL Albumin 3.6 (3.5-5.0) g/dL Lipase (23-300) U/L Urinalys Dipstick Clnc Urine Color (YELLOW) Urine Appearance (CLEAR) Urine pH (5-6) Ur Specific [place] (1.005-1.025) POC Urine Protein Conf (Negative) Urine Ketones (NEGATIVE) Urine Nitrite (NEGATIVE) Urine Bilirubin (NEGATIVE) Urine Urobilinogen (0-1) mg/dL Urine Leukocytes (NEGATIVE) Urine WBC (Auto) (0-5) /HPF Urine RBC (Auto) (0-2) /HPF U Hyaline Cast (Auto) (0-2) /LPF U Epithel Cells (Auto) (FEW) /HPF Urine Bacteria (Auto) (NEGATIVE) /HPF Urine RBC (0-5) [place]/ul Urine Mucus (Auto) (NEGATIVE) /HPF Ur Culture Indicated? Urine Glucose (NEGATIVE) mg/dL Influenza Type A Ag (NEGATIVE) Influenza Type B Ag (NEGATIVE) RSV (PCR) (Negative) SARS-CoV-2 (PCR) (NEGATIVE) 07/20/22 Range/Units 09:00 WBC (4.0-10.5) x10^3/uL RBC (4.1-5.4) x10^6/uL Hgb (12.0-16.0) g/dL Hct (35-47) % MCV (78-100) fL MCH (26-32) pg MCHC (32-36) g/dL RDW (11.5-14.0) % Plt Count (150-450) x10^3/uL MPV (7.5-11.0) fL Gran % (36.0-66.0) % Immature Gran % (Auto) (0.00-0.4) % Nucleat RBC Rel Count (0.00-0.1) % Eos # (Auto) (0-0.5) x10^3/uL Immature Gran # (Auto) (0.00-0.03) x10^3u/L Absolute Lymphs (auto) (1.0-4.6) x10^3/uL Absolute Monos (auto) (0.0-1.3) x10^3/uL Absolute Nucleated RBC (0.00-0.01) x10^3u/L Lymphocytes % (24.0-44.0) % Monocytes % (0.0-12.0) % Eosinophils % (0.00-5.0) % Basophils % (0.0-0.4) % Absolute Granulocytes (1.4-6.9) x10^3/uL Basophils # (0-0.4) x10^3/uL Sodium (137-145) mmol/L Potassium (3.5-5.1) mmol/L Chloride (98-107) mmol/L Carbon Dioxide (22-30) mmol/L Anion Gap (5-15) MEQ/L BUN (7-17) mg/dL Creatinine (0.52-1.04) mg/dL Estimated GFR ML/MIN Glucose (74-106) mg/dL Lactic Acid (0.4-2.0) Calcium (8.4-10.2) mg/dL Magnesium 1.3 L (1.6-2.3) mg/dL Total Bilirubin (0.2-1.3) mg/dL AST (14-36) U/L ALT (0-35) U/L Alkaline Phosphatase (38-126) U/L Troponin I (0.000-0.034) ng/mL NT-Pro-B Natriuret Pep 912 H (0-900) pg/mL Serum Total Protein (6.3-8.2) g/dL Albumin (3.5-5.0) g/dL Lipase 148 (23-300) U/L Urinalys Dipstick Clnc Urine Color (YELLOW) Urine Appearance (CLEAR) Urine pH (5-6) Ur Specific [place] (1.005-1.025) POC Urine Protein Conf (Negative) Urine Ketones (NEGATIVE) Urine Nitrite (NEGATIVE) Urine Bilirubin (NEGATIVE) Urine Urobilinogen (0-1) mg/dL Urine Leukocytes (NEGATIVE) Urine WBC (Auto) (0-5) /HPF Urine RBC (Auto) (0-2) /HPF U Hyaline Cast (Auto) (0-2) /LPF U Epithel Cells (Auto) (FEW) /HPF Urine Bacteria (Auto) (NEGATIVE) /HPF Urine RBC (0-5) [place]/ul Urine Mucus (Auto) (NEGATIVE) /HPF Ur Culture Indicated? Urine Glucose (NEGATIVE) mg/dL Influenza Type A Ag (NEGATIVE) Influenza Type B Ag (NEGATIVE) RSV (PCR) (Negative) SARS-CoV-2 (PCR) (NEGATIVE) - Progress Progress: improved, re-examined Progress Note: 07/20/22 12:57 She is given gentle hydration along with symptomatic treatment, feeling much better on reevaluation but still have nausea. Has normal white count, chemistries consistent with CKD stable creatinine around 2.5. She has low potassium of 3.1 and magnesium of 1.3 for which she is getting replacements. She has some elevation in transaminases but's normal total bili. I have obtained CT abdomen pelvis which showed some chronic findings but no acute process. Discussed with Dr. Sandra and patient is being admitted for electrolyte and fluid replacement along with symptomatic management. Discussed with : Kacey Will see patient in: hospital (observation) Counseled pt/family regarding: lab results, diagnosis, need for follow-up, rad results - Departure Departure Disposition: Observation Clinical Impression: Gastroenteritis, Hypomagnesemia, Hypokalemia Condition: Stable Critical Care Time: No Referrals: CANDICE ROCKWELL, DO [Primary Care Provider] - Follow up/PCP as directed
[2022-07-20] MEDS: POTASSIUM CHLORIDE 20 mEq IN WATER 100ML 20 MEQ/100 ML BAG IV SCH ×2 (13:14→15:58)
[2022-07-20] MEDS ORDERED: Sodium Chloride 0.9% 1000 ML 1,000 ML IV SCH (13:15)
[2022-07-20] MEDS ORDERED: MORPHINE SULFATE 2 MG INJ IV PRN (13:47)
[2022-07-20] MEDS ORDERED: TYLENOL 325 MG PO PRN (13:47)
[2022-07-20] MEDS ORDERED: DUONEB 0.5-3 MG/3 ml Neb IH PRN (13:47)
--- NOTE | 2022-07-20 18:59 | XRAY ---
Indication: Vomiting, chills, and weakness. Multiple contiguous axial images obtained through the abdomen and pelvis without contrast. Comparison: November 19, 2014 Lung bases demonstrates mild dependent atelectasis. Stable right lower lobe calcified granuloma. No infiltrate or effusion. Heart borderline enlarged again with pacer lead. Heart also demonstrates partially visualized interatrial lipoma not previously included in [id number]. Incidental right infrahilar calcified node. Stable small hiatal hernia. Noncontrasted stomach and bowel loops nonobstructed. Normal appendix. Again 1.6 cm right adrenal adenoma, bilateral renal cysts, splenic calcified granulomas, and cholecystectomy. No free fluid/air. Remaining liver, pancreas, spleen, adrenal glands, kidneys, ureters, bladder, and uterus appear unremarkable for noncontrast exam. There remains moderate scattered aortoiliac calcifications without AAA. Osseous structures intact again with moderate lumbar degenerative changes. Impression: 1. Incompletely visualized cardiac interatrial septal lipoma. 2. Chronic findings including small hiatal hernia, bilateral renal cysts, right adrenal adenoma, arteriosclerotic disease, degenerative spondylosis, and old granulomatous disease. 3. Remaining CT abdomen/pelvis without contrast exam is negative. Comment: Preliminary interpretation made by [facility]. No critical discrepancy.
[2022-07-20] MEDS ORDERED: XANAX 1 MG PO PRN (19:28)
[2022-07-20] MEDS: Sodium Chloride 0.9% W/ 20 mEq KCl/LITER 1,000 ML IV SCH ×2 (20:12→20:35)
[2022-07-20] MEDS: Zofran 4 MG/2 ML VIAL IV PRN (20:36)
[2022-07-20] MEDS: Zetia 10 MG PO SCH (21:44)
[2022-07-20] MEDS: COREG 12.5 MG PO SCH (21:44)
[2022-07-20] MEDS: ZOCOR 20MG PO SCH (21:44)
[2022-07-21 05:03] LABS: ALBUMIN 2.8 g/dL (3.5-5.0); ANION GAP 8.7 MEQ/L (5-15); BILIRUBIN,TOTAL 0.5 mg/dL (0.2-1.3); Calcium 6.9 mg/dL (8.4-10.2); Creatinine 1 2.24 mg/dL (0.52-1.04); EST GLOMERULAR FILTRATION RATE 23.3 ML/MIN; Potassium 3.9 mmol/L (3.5-5.1); Total Protein 5.7 g/dL (6.3-8.2)
[2022-07-21 05:08] LABS: Absolute Neutrophil Ct (ANC) 2.37 x10^3/uL (1.4-6.9); Basophil (Absolute #) 0.03 x10^3/uL (0-0.4); Eosinophil % 3.2 % (0.00-5.0); Eosinophil (Absolute #) 0.13 x10^3/uL (0-0.5); Hematocrit 30.5 % (35-47); Lymphocyte (Absolute #) 1.01 x10^3/uL (1.0-4.6); Lymphocytes % 24.5 % (24.0-44.0); Mean Corpuscular Hemoglobin 30.4 pg (26-32); Mean Corpuscular Hgb Concent. 29.5 g/dL (32-36); Mean Platelet Volume 11.2 fL (7.5-11.0); Monocyte (Absolute #) 0.57 x10^3/uL (0.0-1.3); Monocytes % 13.8 % (0.0-12.0); Neutrophil % 57.6 % (36.0-66.0); Platelet Count 207 x10^3/uL (150-450); Red Blood Count 2.96 x10^6/uL (4.1-5.4); Red Cell Distribution Width 13.5 % (11.5-14.0); White Blood Count 4.1 x10^3/uL (4.0-10.5)
[2022-07-21] MEDS: Zofran 4 MG/2 ML VIAL IV PRN (06:17)
[2022-07-21] MEDS: Sodium Chloride 0.9% W/ 20 mEq KCl/LITER 1,000 ML IV SCH ×2 (06:21→18:38)
--- NOTE | 2022-07-21 09:09 | PCM.HP ---
History of Present Illness - Chief Complaint Chief Complaint: Gastroenteritis History of Present Illness: is a 67 year old female with a wound vac on her lower leg on the left, she has an ulceration from a recent fall and has been under the care of Dr Edwards, she was on 2 different abx the most recent doxy. she has severe nausea and vomiting and has had diarrhea for the last 2 days, unable to tolerate po intake. she has significant mobility issues with her recent injures, multiple falls and morbid obesity. - Review of Systems Constitutional: No Symptoms Respiratory: No Cough, No Short Of Breath Cardiac: No Chest Pain, No Edema, No Syncope Abdominal/Gastrointestinal: Nausea, Vomiting, Diarrhea, No Abdominal Pain Genitourinary Symptoms: No Dysuria Skin: Cellulitis All Other Systems: Reviewed and Negative Medications & Allergies Home Medications: Home Medication List Rivaroxaban [Xarelto] 15 mg PO DAILY 05/21/18 [History Confirmed 07/20/22] Atorvastatin Calcium 80 mg PO HS 07/30/19 [History Confirmed 07/20/22] ALPRAZolam [Alprazolam] 1 mg PO BIDPRN PRN 07/20/22 [History Confirmed 07/20/22] Allopurinol 100 mg [Zyloprim 100 mg] 100 mg PO DAILY 07/20/22 [History Confirmed 07/20/22] Amiodarone HCl 200 mg PO DAILY 07/20/22 [History Confirmed 07/20/22] Bumetanide 2 mg PO BID 07/20/22 [History Confirmed 07/20/22] Carvedilol 12.5 mg [Coreg 12.5 mg] 12.5 mg PO BID 07/20/22 [History Confirmed 07/20/22] Cholecalciferol (Vitamin D3) [D3-5000] 125 mcg PO DAILY 07/20/22 [History Confirmed 07/20/22] Ezetimibe 10 mg [Zetia 10 MG] 10 mg PO HS 07/20/22 [History Confirmed 07/20/22] Levothyroxine Sodium 112 Mcg [Synthroid 112 Mcg] 112 mcg PO DAILY 07/20/22 [History Confirmed 07/20/22] Ondansetron [Ondansetron Odt ] 4 mg PO Q8H PRN PRN 07/20/22 [History Confirmed 07/20/22] Potassium Chloride Tab* [Klor Con] 30 meq PO DAILY 07/20/22 [History Confirmed 07/20/22] Allergies/Adverse Reactions: Allergies Allergy/AdvReac Type Severity Reaction Status Date / Time lorazepam AdvReac Intermediate Verified 07/20/22 08:41 - Past Medical History Past Medical History: Yes Cardiac History: Arrhythmia, High Cholesterol, Hypertension Respiratory History: COPD, Emphysema Endocrine Medical History: Hypothyroidism Musculoskelatal History: No Pertinent History GI Medical History: No Pertinent History History: No Pertinent History Pyscho-Social History: Anxiety Reproductive Disorders: No Pertinent History Comment: CARDIOMYOPATHY, Gout - Past Surgical History Past Surgical History: Yes Neuro Surgical History: No Pertinent History Cardiac History: Internal Defibrillator Respiratory Surgery: No Pertinent History GI Surgical History: Cholecystectomy Musculskeletal Surgical Hx: Orthopedic Surgery Other Surgical History: ROTATOR CUFF, L FOOT SX - Social History Smoking Status: Former smoker Exposure to second hand smoke: No Alcohol: None Drug Use: none - Physical Exam Vital Signs: Vital Signs - 24 hr Temp Pulse Resp BP Pulse Ox 07/21/22 07:12 97.1 F 62 17 111/52 92 L 07/21/22 04:00 98.0 F 62 20 98/56 95 07/20/22 23:50 97.7 F 64 20 117/79 94 L 07/20/22 19:45 97.8 F 64 20 113/51 94 L 07/20/22 14:33 97.1 F 71 18 121/58 97 07/20/22 13:34 97.1 F 71 18 121/58 97 07/20/22 13:00 97.1 F 71 18 121/58 97 07/20/22 12:59 95 07/20/22 12:40 70 18 124/56 95 07/20/22 10:40 65 18 135/58 94 L 07/20/22 09:40 64 17 138/65 93 L General Appearance: no apparent distress, obese Neurologic Exam: alert, oriented x 3, cooperative Respiratory Exam: normal breath sounds, lungs clear, No respiratory distress Cardiovascular Exam: regular rate/rhythm, normal heart sounds, normal peripheral pulses Gastrointestinal/Abdomen Exam: soft, normal bowel sounds, No tenderness, No mass Extremity Exam: other (wound vac on left lower mid-[facility], mild surrounding erythema. stitches in place to right knee, dressing clean/dry/intact to left knee) Results - Labs Lab/Micro Results: Lab Results-Last 24 Hours 07/20/22 07/20/22 07/20/22 Range/Units 09:00 09:00 09:03 WBC 5.5 (4.0-10.5) x10^3/uL RBC 3.47 L (4.1-5.4) x10^6/uL Hgb 10.7 L (12.0-16.0) g/dL Hct 34.8 L (35-47) % MCV 100.3 H (78-100) fL MCH 30.8 (26-32) pg MCHC 30.7 L (32-36) g/dL RDW 13.5 (11.5-14.0) % Plt Count 271 (150-450) x10^3/uL MPV 11.0 (7.5-11.0) fL Gran % 63.6 (36.0-66.0) % Immature Gran % (Auto) 0.5 H (0.00-0.4) % Nucleat RBC Rel Count 0.0 (0.00-0.1) % Eos # (Auto) 0.11 (0-0.5) x10^3/uL Immature Gran # (Auto) 0.03 (0.00-0.03) x10^3u/L Absolute Lymphs (auto) 1.15 (1.0-4.6) x10^3/uL Absolute Monos (auto) 0.69 (0.0-1.3) x10^3/uL Absolute Nucleated RBC 0.00 (0.00-0.01) x10^3u/L Lymphocytes % 20.9 L (24.0-44.0) % Monocytes % 12.5 H (0.0-12.0) % Eosinophils % 2.0 (0.00-5.0) % Basophils % 0.5 (0.0-0.4) % Absolute Granulocytes 3.49 (1.4-6.9) x10^3/uL Basophils # 0.03 (0-0.4) x10^3/uL Sodium (137-145) mmol/L Potassium (3.5-5.1) mmol/L Chloride (98-107) mmol/L Carbon Dioxide (22-30) mmol/L Anion Gap (5-15) MEQ/L BUN (7-17) mg/dL Creatinine (0.52-1.04) mg/dL Estimated GFR ML/MIN Glucose (74-106) mg/dL Lactic Acid (0.4-2.0) Calcium (8.4-10.2) mg/dL Magnesium 1.3 L (1.6-2.3) mg/dL Total Bilirubin (0.2-1.3) mg/dL AST (14-36) U/L ALT (0-35) U/L Alkaline Phosphatase (38-126) U/L Troponin I 0.022 (0.000-0.034) ng/mL NT-Pro-B Natriuret Pep 912 H (0-900) pg/mL Serum Total Protein (6.3-8.2) g/dL Albumin (3.5-5.0) g/dL Lipase 148 (23-300) U/L Urinalys Dipstick Clnc Urine Color (YELLOW) Urine Appearance (CLEAR) Urine pH (5-6) Ur Specific [place] (1.005-1.025) POC Urine Protein Conf (Negative) Urine Ketones (NEGATIVE) Urine Nitrite (NEGATIVE) Urine Bilirubin (NEGATIVE) Urine Urobilinogen (0-1) mg/dL Urine Leukocytes (NEGATIVE) Urine WBC (Auto) (0-5) /HPF Urine RBC (Auto) (0-2) /HPF U Hyaline Cast (Auto) (0-2) /LPF U Epithel Cells (Auto) (FEW) /HPF Urine Bacteria (Auto) (NEGATIVE) /HPF Urine RBC (0-5) Jose [place]upe/ul Urine Mucus (Auto) (NEGATIVE) /HPF Ur Culture Indicated? Urine Glucose (NEGATIVE) mg/dL Influenza Type A Ag (NEGATIVE) Influenza Type B Ag (NEGATIVE) RSV (PCR) (Negative) SARS-CoV-2 (PCR) (NEGATIVE) 07/20/22 07/20/22 07/20/22 Range/Units 09:03 09:41 10:24 WBC (4.0-10.5) x10^3/uL RBC (4.1-5.4) x10^6/uL Hgb (12.0-16.0) g/dL Hct (35-47) % MCV (78-100) fL MCH (26-32) pg MCHC (32-36) g/dL RDW (11.5-14.0) % Plt Count (150-450) x10^3/uL MPV (7.5-11.0) fL Gran % (36.0-66.0) % Immature Gran % (Auto) (0.00-0.4) % Nucleat RBC Rel Count (0.00-0.1) % Eos # (Auto) (0-0.5) x10^3/uL Immature Gran # (Auto) (0.00-0.03) x10^3u/L Absolute Lymphs (auto) (1.0-4.6) x10^3/uL Absolute Monos (auto) (0.0-1.3) x10^3/uL Absolute Nucleated RBC (0.00-0.01) x10^3u/L Lymphocytes % (24.0-44.0) % Monocytes % (0.0-12.0) % Eosinophils % (0.00-5.0) % Basophils % (0.0-0.4) % Absolute Granulocytes (1.4-6.9) x10^3/uL Basophils # (0-0.4) x10^3/uL Sodium 136 L (137-145) mmol/L Potassium 3.1 L (3.5-5.1) mmol/L Chloride 97 L (98-107) mmol/L Carbon Dioxide 28 (22-30) mmol/L Anion Gap 13.0 (5-15) MEQ/L BUN 34 H (7-17) mg/dL Creatinine 2.54 H (0.52-1.04) mg/dL Estimated GFR 20.2 ML/MIN Glucose 140 H (74-106) mg/dL Lactic Acid 2.1 H (0.4-2.0) Calcium 7.7 L (8.4-10.2) mg/dL Magnesium (1.6-2.3) mg/dL Total Bilirubin 0.70 (0.2-1.3) mg/dL AST 58 H (14-36) U/L ALT 42 H (0-35) U/L Alkaline Phosphatase 130 H (38-126) U/L Troponin I (0.000-0.034) ng/mL NT-Pro-B Natriuret Pep (0-900) pg/mL Serum Total Protein 6.8 (6.3-8.2) g/dL Albumin 3.6 (3.5-5.0) g/dL Lipase (23-300) U/L Urinalys Dipstick Clnc Urine Color (YELLOW) Urine Appearance (CLEAR) Urine pH (5-6) Ur Specific [place] (1.005-1.025) POC Urine Protein Conf (Negative) Urine Ketones (NEGATIVE) Urine Nitrite (NEGATIVE) Urine Bilirubin (NEGATIVE) Urine Urobilinogen (0-1) mg/dL Urine Leukocytes (NEGATIVE) Urine WBC (Auto) (0-5) /HPF Urine RBC (Auto) (0-2) /HPF U Hyaline Cast (Auto) (0-2) /LPF U Epithel Cells (Auto) (FEW) /HPF Urine Bacteria (Auto) (NEGATIVE) /HPF Urine RBC (0-5) Jose [place]upe/ul Urine Mucus (Auto) (NEGATIVE) /HPF Ur Culture Indicated? Urine Glucose (NEGATIVE) mg/dL Influenza Type A Ag NEGATIVE (NEGATIVE) Influenza Type B Ag NEGATIVE (NEGATIVE) RSV (PCR) NEGATIVE (Negative) SARS-CoV-2 (PCR) NEGATIVE (NEGATIVE) 07/20/22 07/20/22 07/20/22 Range/Units 11:13 12:45 21:18 WBC (4.0-10.5) x10^3/uL RBC (4.1-5.4) x10^6/uL Hgb (12.0-16.0) g/dL Hct (35-47) % MCV (78-100) fL MCH (26-32) pg MCHC (32-36) g/dL RDW (11.5-14.0) % Plt Count (150-450) x10^3/uL MPV (7.5-11.0) fL Gran % (36.0-66.0) % Immature Gran % (Auto) (0.00-0.4) % Nucleat RBC Rel Count (0.00-0.1) % Eos # (Auto) (0-0.5) x10^3/uL Immature Gran # (Auto) (0.00-0.03) x10^3u/L Absolute Lymphs (auto) (1.0-4.6) x10^3/uL Absolute Monos (auto) (0.0-1.3) x10^3/uL Absolute Nucleated RBC (0.00-0.01) x10^3u/L Lymphocytes % (24.0-44.0) % Monocytes % (0.0-12.0) % Eosinophils % (0.00-5.0) % Basophils % (0.0-0.4) % Absolute Granulocytes (1.4-6.9) x10^3/uL Basophils # (0-0.4) x10^3/uL Sodium (137-145) mmol/L Potassium 3.5 (3.5-5.1) mmol/L Chloride (98-107) mmol/L Carbon Dioxide (22-30) mmol/L Anion Gap (5-15) MEQ/L BUN (7-17) mg/dL Creatinine (0.52-1.04) mg/dL Estimated GFR ML/MIN Glucose (74-106) mg/dL Lactic Acid (0.4-2.0) Calcium (8.4-10.2) mg/dL Magnesium (1.6-2.3) mg/dL Total Bilirubin (0.2-1.3) mg/dL AST (14-36) U/L ALT (0-35) U/L Alkaline Phosphatase (38-126) U/L Troponin I 0.021 (0.000-0.034) ng/mL NT-Pro-B Natriuret Pep (0-900) pg/mL Serum Total Protein (6.3-8.2) g/dL Albumin (3.5-5.0) g/dL Lipase (23-300) U/L Urinalys Dipstick Clnc MAIN LAB Urine Color YELLOW (YELLOW) Urine Appearance CLEAR (CLEAR) Urine pH 5.5 (5-6) Ur Specific [place] 1.025 (1.005-1.025) POC Urine Protein Conf NEGATIVE (Negative) Urine Ketones NEGATIVE (NEGATIVE) Urine Nitrite NEGATIVE (NEGATIVE) Urine Bilirubin NEGATIVE (NEGATIVE) Urine Urobilinogen 0.2 (0-1) mg/dL Urine Leukocytes NEGATIVE (NEGATIVE) Urine WBC (Auto) 0-2 (0-5) /HPF Urine RBC (Auto) NONE (0-2) /HPF U Hyaline Cast (Auto) 6-10 A (0-2) /LPF U Epithel Cells (Auto) NONE (FEW) /HPF Urine Bacteria (Auto) NONE (NEGATIVE) /HPF Urine RBC NEGATIVE (0-5) [place]/ul Urine Mucus (Auto) SLIGHT A (NEGATIVE) /HPF Ur Culture Indicated? NO Urine Glucose NEGATIVE (NEGATIVE) mg/dL Influenza Type A Ag (NEGATIVE) Influenza Type B Ag (NEGATIVE) RSV (PCR) (Negative) SARS-CoV-2 (PCR) (NEGATIVE) 07/21/22 07/21/22 Range/Units 04:15 04:15 WBC 4.1 (4.0-10.5) x10^3/uL RBC 2.96 L (4.1-5.4) x10^6/uL Hgb 9.0 L (12.0-16.0) g/dL Hct 30.5 L (35-47) % MCV 103.0 H (78-100) fL MCH 30.4 (26-32) pg MCHC 29.5 L (32-36) g/dL RDW 13.5 (11.5-14.0) % Plt Count 207 (150-450) x10^3/uL MPV 11.2 H (7.5-11.0) fL Gran % 57.6 (36.0-66.0) % Immature Gran % (Auto) 0.2 (0.00-0.4) % Nucleat RBC Rel Count 0.0 (0.00-0.1) % Eos # (Auto) 0.13 (0-0.5) x10^3/uL Immature Gran # (Auto) 0.01 (0.00-0.03) x10^3u/L Absolute Lymphs (auto) 1.01 (1.0-4.6) x10^3/uL Absolute Monos (auto) 0.57 (0.0-1.3) x10^3/uL Absolute Nucleated RBC 0.00 (0.00-0.01) x10^3u/L Lymphocytes % 24.5 (24.0-44.0) % Monocytes % 13.8 H (0.0-12.0) % Eosinophils % 3.2 (0.00-5.0) % Basophils % 0.7 (0.0-0.4) % Absolute Granulocytes 2.37 (1.4-6.9) x10^3/uL Basophils # 0.03 (0-0.4) x10^3/uL Sodium 136 L (137-145) mmol/L Potassium 3.9 (3.5-5.1) mmol/L Chloride 104 (98-107) mmol/L Carbon Dioxide 28 (22-30) mmol/L Anion Gap 8.7 (5-15) MEQ/L BUN 28 H (7-17) mg/dL Creatinine 2.24 H (0.52-1.04) mg/dL Estimated GFR 23.3 ML/MIN Glucose 112 H (74-106) mg/dL Lactic Acid (0.4-2.0) Calcium 6.9 L (8.4-10.2) mg/dL Magnesium (1.6-2.3) mg/dL Total Bilirubin 0.50 (0.2-1.3) mg/dL AST 50 H (14-36) U/L ALT 39 H (0-35) U/L Alkaline Phosphatase 108 (38-126) U/L Troponin I (0.000-0.034) ng/mL NT-Pro-B Natriuret Pep (0-900) pg/mL Serum Total Protein 5.7 L (6.3-8.2) g/dL Albumin 2.8 L (3.5-5.0) g/dL Lipase (23-300) U/L Urinalys Dipstick Clnc Urine Color (YELLOW) Urine Appearance (CLEAR) Urine pH (5-6) Ur Specific [place] (1.005-1.025) POC Urine Protein Conf (Negative) Urine Ketones (NEGATIVE) Urine Nitrite (NEGATIVE) Urine Bilirubin (NEGATIVE) Urine Urobilinogen (0-1) mg/dL Urine Leukocytes (NEGATIVE) Urine WBC (Auto) (0-5) /HPF Urine RBC (Auto) (0-2) /HPF U Hyaline Cast (Auto) (0-2) /LPF U Epithel Cells (Auto) (FEW) /HPF Urine Bacteria (Auto) (NEGATIVE) /HPF Urine RBC (0-5) Jose [place]adalupe/ul Urine Mucus (Auto) (NEGATIVE) /HPF Ur Culture Indicated? Urine Glucose (NEGATIVE) mg/dL Influenza Type A Ag (NEGATIVE) Influenza Type B Ag (NEGATIVE) RSV (PCR) (Negative) SARS-CoV-2 (PCR) (NEGATIVE) - Radiology Impressions Radiology Exams & Impressions: Radiology Procedures Category Date Time Status ABDOMEN AND PELVIS W/0 CONTRAS [CT] Stat Exams 07/20/22 09:29 Completed Assessment/Plan (1) Vomiting and diarrhea Current Visit: Yes Status: Acute Assessment & Plan: volume replaced, symptoms improved. zofran not helpful, will add compazine. luly ck c diff due to recent abx use Code(s): R11.10 - VOMITING, UNSPECIFIED; R19.7 - DIARRHEA, UNSPECIFIED (2) Wound of left lower extremity Current Visit: Yes Status: Acute Assessment & Plan: pharmacy to dose IV vanc Code(s): S81.802A - UNSPECIFIED OPEN WOUND, LEFT LOWER LEG, INITIAL ENCOUNTER (3) Morbid obesity Current Visit: Yes Status: Acute Code(s): E66.01 - MORBID (SEVERE) OBESITY DUE TO EXCESS CALORIES
[2022-07-21] MEDS ORDERED: VANCOCIN INJECTION*** 1 GM in Sodium Chloride 0.9% 250 ML 250 ML IV SCH (10:00)
[2022-07-21] MEDS: Compazine 10 MG/2 ML IV PRN ×2 (10:14→21:24)
[2022-07-21] MEDS: PROTONIX 40 MG IV IV SCH (10:18)
[2022-07-21] MEDS: VANCOMYCIN 1 GRAM/200 ML BAG 1 GM/200 ML PIGGYBACK IV SCH ×2 (10:21→21:32)
[2022-07-21] MEDS: COREG 12.5 MG PO SCH ×2 (10:23→21:24)
[2022-07-21] MEDS ORDERED: XANAX 1 MG PO PRN (10:36)
[2022-07-21] MEDS: ZYLOPRIM 100 MG PO SCH (12:01)
[2022-07-21] MEDS: SYNTHROID 112 MCG PO SCH (12:01)
[2022-07-21] MEDS: Cordarone 200 MG PO SCH (12:01)
[2022-07-21] MEDS: XARELTO 10 MG TABLET PO SCH (12:02)
[2022-07-21 18:25] LABS: 027 TOX PROD PRESUMPTIVE NEGATIVE (NEGATIVE); TOXIGENIC C. DIFF ORG NEGATIVE (NEGATIVE)
[2022-07-21] MEDS: ZOCOR 20MG PO SCH (21:24)
[2022-07-21] MEDS: Zetia 10 MG PO SCH (21:24)
[2022-07-21] MEDS ORDERED: NON-FORMULARY ITEM (Atorvastatin Calcium [Atorvastatin Calcium] 80 MG Tablet) PO SCH (22:00)
[2022-07-21] MEDS ORDERED: Zetia 10 MG PO SCH (22:00)
[2022-07-21] MEDS ORDERED: COREG 12.5 MG PO SCH (22:00)
[2022-07-22] MEDS: Sodium Chloride 0.9% W/ 20 mEq KCl/LITER 1,000 ML IV SCH (06:14)
[2022-07-22 06:24] LABS: Absolute Neutrophil Ct (ANC) 2.84 x10^3/uL (1.4-6.9); Basophil (Absolute #) 0.03 x10^3/uL (0-0.4); Eosinophil (Absolute #) 0.19 x10^3/uL (0-0.5); Hematocrit 32.6 % (35-47); Hemoglobin 9.4 g/dL (12.0-16.0); Lymphocyte (Absolute #) 0.97 x10^3/uL (1.0-4.6); Lymphocytes % 20.6 % (24.0-44.0); Mean Cell Volume 103.5 fL (78-100); Mean Corpuscular Hemoglobin 29.8 pg (26-32); Mean Corpuscular Hgb Concent. 28.8 g/dL (32-36); Mean Platelet Volume 11.5 fL (7.5-11.0); Monocyte (Absolute #) 0.65 x10^3/uL (0.0-1.3); Monocytes % 13.8 % (0.0-12.0); Neutrophil % 60.6 % (36.0-66.0); Platelet Count 213 x10^3/uL (150-450); Red Blood Count 3.15 x10^6/uL (4.1-5.4); Red Cell Distribution Width 13.5 % (11.5-14.0); White Blood Count 4.7 x10^3/uL (4.0-10.5)
[2022-07-22 06:45] LABS: ALBUMIN 2.7 g/dL (3.5-5.0); ANION GAP 9.9 MEQ/L (5-15); BILIRUBIN,TOTAL 0.5 mg/dL (0.2-1.3); Calcium 7.2 mg/dL (8.4-10.2); Creatinine 1 2.11 mg/dL (0.52-1.04); MAGNESIUM 1.8 mg/dL (1.6-2.3); Potassium 4.6 mmol/L (3.5-5.1); Total Protein 5.6 g/dL (6.3-8.2)
[2022-07-22 07:16] VITALS: PULSE 59
[2022-07-22] MEDS ORDERED: NON-FORMULARY ITEM (Rivaroxaban [Xarelto] 20 MG Tablet) PO SCH (10:00)
[2022-07-22] MEDS ORDERED: Sodium Chloride 0.9% 500 ML 500 ML IV ONE (10:08)
[2022-07-22 10:16] LABS: Slide Review 1 YES
[2022-07-22] MEDS: PROTONIX 40 MG IV IV SCH (10:37)
[2022-07-22] MEDS: XARELTO 10 MG TABLET PO SCH (10:39)
[2022-07-22] MEDS: COREG 12.5 MG PO SCH (10:41)
[2022-07-22] MEDS: Cordarone 200 MG PO SCH (10:42)
[2022-07-22] MEDS: SYNTHROID 112 MCG PO SCH (10:42)
[2022-07-22] MEDS: ZYLOPRIM 100 MG PO SCH (10:42)
[2022-07-22] MEDS: VANCOMYCIN 1 GRAM/200 ML BAG 1 GM/200 ML PIGGYBACK IV SCH (10:43)
[2022-07-22 11:34] VITALS: BP 120/58; O2SAT 91
[2022-07-23] MEDS ORDERED: TROUGH DRUG LEVELS IJ ONE (09:30)
== END 2022-07-22 13:16 | disposition home or self-care (01) ==
LOC: ED 08:37 → MED SURG 13:27
PROVIDERS: ADMIT Family Medicine; ATTEND Family Medicine
DX: R11.10 Vomiting, unspecified (principal); R19.7 Diarrhea, unspecified; S81.802A Unspecified open wound, left lower leg, initial encounter; I10 Essential (primary) hypertension; I48.91 Unspecified atrial fibrillation; E66.01 Morbid (severe) obesity due to excess calories; Z79.01 Long term (current) use of anticoagulants; Z79.899 Other long term (current) drug therapy; Z20.828 Contact with and (suspected) exposure to other viral communicable diseases
CPT/HCPCS: 0241U; 36000; 36415; 74176; 80053; 81015; 83605; 83690; 83735; 83880; 84132; 84484; 85025; 87493; 93005; 96374; 96375; 99285; 93268; J2270; J2405; J3475; J3480; A9270-GY; G0378; J3370

== ENCOUNTER 2022-08-23 09:05 | Emergency (ER) | payer MEDICARE, OTHER ==
--- NOTE | 2022-08-23 10:51 | ERPHSYRPT ---
- History of Present Illness Time Seen by Provider: 08/23/22 10:50 Historian: patient Exam Limitations: no limitations Patient Subjective Stated Complaint: C/O N/V that started around 0600 this morning. Denies any pain at this time. Triage Nursing Assessment: Patient brought back to ED in W/C. She is alert and oriented. No SOB. Skin cool to touch; patient is trembling. GRAY WNL. Patient noted to have an occassional, non-productive cough. No vomiting noted during assessment. Physician History: 67-year-old female presents to the ER today with nausea, vomiting and abdominal pain since 6 AM. Patient was admitted for similar symptoms over . Patient reports 5-10 episodes of nonbloody nonbilious emesis. reports that since her last admission patient hardly eats anything at all. Her abdominal pain is located in the left lower quadrant with no radiation. She denies any sick contacts. Patient also reports new onset chest pain that started while in the waiting room today. Pain is retrosternal without radiation. No history of CAD. Patient does have a history of A. fib and has a defibrillator i n place. Timing/Duration: today Activities at Onset: sleep Quality: pressure, sharpness, stabbing Location: substernal, other (LLQ pain) Chest Pain Radiation: no radiation Severity of Pain-Max: moderate Severity of Pain-Current: moderate Modifying Factors: Improves With: nothing Associated Symptoms: nausea, vomiting, abdominal pain, weakness, No shortness of breath, No cough, No chills, No fever Prior Chest Pain/Cardiac Workup: no prior chest pain Nitro Today/Relief: no nitro taken today Aspirin Treatment Today: no aspirin today Allergies/Adverse Reactions: lorazepam Adverse Reaction (Intermediate, Verified 08/23/22 10:12) "made me weird" Sleep walking Home Medications: Rivaroxaban [Xarelto] 15 mg PO DAILY 05/21/18 [History] Atorvastatin Calcium 80 mg PO HS 07/30/19 [History] ALPRAZolam [Alprazolam] 1 mg PO BIDPRN PRN 07/20/22 [History] Allopurinol 100 mg [Zyloprim 100 mg] 100 mg PO DAILY 07/20/22 [History] Amiodarone HCl 200 mg PO DAILY 07/20/22 [History] Bumetanide 2 mg PO BID 07/20/22 [History] Carvedilol 12.5 mg [Coreg 12.5 mg] 12.5 mg PO BID 07/20/22 [History] Cholecalciferol (Vitamin D3) [D3-5000] 125 mcg PO DAILY 07/20/22 [History] Ezetimibe 10 mg [Zetia 10 MG] 10 mg PO HS 07/20/22 [History] Levothyroxine Sodium 112 Mcg [Synthroid 112 Mcg] 112 mcg PO DAILY 07/20/22 [History] Potassium Chloride Tab* [Klor Con] 20 meq PO TID 07/20/22 [History] Hx Tetanus, Diphtheria Vaccination/Date Given: Yes Hx Influenza Vaccination/Date Given: Yes Hx Pneumococcal Vaccination/Date Given: No Immunizations Up to Date: Yes Travel Risk - International Travel Have you traveled outside of the country in past 3 weeks: No - Coronavirus Screening Are you exhibiting any of the following symptoms?: Yes Symptoms: Vomiting/Diarrhea Close contact with a COVID-19 positive Pt in past 14-21 Days: No - Vaccine Status Have you recieved a Covid-19 vaccination: Yes 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: [employer] - Review of Systems Constitutional: Fatigue, Weakness, No Fever, No Chills Eyes: No Symptoms Ears, Nose, & Throat: No Symptoms Respiratory: No Cough, No Dyspnea Cardiac: Chest Pain, Other, No Orthopnea Abdominal/Gastrointestinal: Abdominal Pain (LLQ), Nausea, Vomiting, Appetite Changes (decreased), No Diarrhea, No Constipation, No Hematemesis, No Hematochezia Genitourinary Symptoms: No Symptoms Musculoskeletal: No Symptoms Skin: Other (chronic left anterior tibia wound) Psychological: No Symptoms - Past Medical History Pertinent Past Medical History: Yes Cardiac History: Arrhythmia, High Cholesterol, Hypertension Respiratory History: COPD, Emphysema Endocrine Medical History: Hypothyroidism Musculoskeletal History: No Pertinent History GI Medical History: No Pertinent History History: No Pertinent History Psycho-Social History: Anxiety Female Reproductive Disorders: No Pertinent History Other Medical History: CARDIOMYOPATHY, Gout, LLE wound infection currently being treated by Dr. Dumas - Past Surgical History Past Surgical History: Yes Neuro Surgical History: No Pertinent History Cardiac: Internal Defibrillator Respiratory: No Pertinent History Gastrointestinal: Cholecystectomy Musculoskeletal: Orthopedic Surgery Other Surgical History: ROTATOR CUFF, L FOOT SX - Social History Smoking Status: Former smoker Exposure to second hand smoke: No Drug Use: none Patient Lives Alone: No - Nursing Vital Signs Nursing Vital Signs: Initial Vital Signs Temperature 97.6 F 08/23/22 10:12 Pulse Rate 73 08/23/22 10:12 Respiratory Rate 19 08/23/22 10:12 Blood Pressure 106/51 08/23/22 10:12 O2 Sat by Pulse Oximetry 91 L 08/23/22 10:12 Pain Scale Pain Intensity 0 - Physical Exam General Appearance: mild distress Eye Exam: PERRL/EOMI Ears, Nose, Throat Exam: normal ENT inspection Neck Exam: normal inspection, non-tender, supple, full range of motion Respiratory Exam: normal breath sounds, No respiratory distress Cardiovascular Exam: other (irregularly, irregular), No murmur Gastrointestinal/Abdomen Exam: soft, normal bowel sounds, tenderness (LLQ), No distention, No mass, No guarding, No ecchymosis, No rebound Extremity Exam: swelling (1+), other (Left anterior tibia wound covered w/ dressing), No calf tenderness, No hima's sign Neurologic Exam: alert, oriented x 3, cooperative Skin Exam: normal color, warm, dry, pale SpO2: 91 - Course Nursing assessment & vital signs reviewed: Yes EKG Interpreted by Me: RATE (73), Sinus Rhythm, NORMAL AXIS, prolonged QT interval, Non-specific ST Changes (similar to previous) - CT Exams Abdomen CT Interpretation: Other (No acute findings study limited by lack of contrast due to KEMAL) Ordered Tests: Medication Summary Discontinued Medications Generic Name Dose Route Start Last Admin Trade Name Leonel PRN Reason Stop Dose Admin Sodium Chloride 1,000 mls @ 999 mls/hr 08/23/22 11:26 08/23/22 13:01 Sodium Chloride 0.9% 1000 Ml IV 08/23/22 12:26 Infused .Q1H1M STA Infusion Sodium Chloride Confirm 08/23/22 11:58 Sodium Chloride 0.9% 1000 Ml Administered 08/23/22 11:59 Dose 1,000 mls @ ud .ROUTE .STK-MED ONE Prochlorperazine Edisylate 10 mg 08/23/22 11:26 08/23/22 12:00 Prochlorperazine Edisylate 10 Mg/2 Ml Vial IV 08/23/22 11:27 10 mg STAT ONE Administration Prochlorperazine Edisylate Confirm 08/23/22 11:58 Prochlorperazine Edisylate 10 Mg/2 Ml Vial Administered 08/23/22 11:59 Dose 10 mg .ROUTE .STK-MED ONE Lab/Rad Data: Laboratory Result Diagrams 08/23/22 11:50 08/23/22 11:50 Laboratory Results 08/23/22 08/23/22 08/23/22 Range/Units 12:02 11:51 11:50 WBC (4.0-10.5) x10^3/uL RBC (4.1-5.4) x10^6/uL Hgb (12.0-16.0) g/dL Hct (35-47) % MCV (78-100) fL MCH (26-32) pg MCHC (32-36) g/dL RDW (11.5-14.0) % Plt Count (150-450) x10^3/uL MPV (7.5-11.0) fL Gran % (36.0-66.0) % Immature Gran % (Auto) (0.00-0.4) % Nucleat RBC Rel Count (0.00-0.1) % Eos # (Auto) (0-0.5) x10^3/uL Immature Gran # (Auto) (0.00-0.03) x10^3u/L Absolute Lymphs (auto) (1.0-4.6) x10^3/uL Absolute Monos (auto) (0.0-1.3) x10^3/uL Absolute Nucleated RBC (0.00-0.01) x10^3u/L Lymphocytes % (24.0-44.0) % Monocytes % (0.0-12.0) % Eosinophils % (0.00-5.0) % Basophils % (0.0-0.4) % Absolute Granulocytes (1.4-6.9) x10^3/uL Basophils # (0-0.4) x10^3/uL Sodium (137-145) mmol/L Potassium (3.5-5.1) mmol/L Chloride (98-107) mmol/L Carbon Dioxide (22-30) mmol/L Anion Gap (5-15) MEQ/L BUN (7-17) mg/dL Creatinine (0.52-1.04) mg/dL Estimated GFR ML/MIN Glucose (74-106) mg/dL Lactic Acid 3.0 H (0.4-2.0) Calcium (8.4-10.2) mg/dL Total Bilirubin (0.2-1.3) mg/dL AST (14-36) U/L ALT (0-35) U/L Alkaline Phosphatase (38-126) U/L Serum Total Protein (6.3-8.2) g/dL Albumin (3.5-5.0) g/dL Lipase (23-300) U/L Urinalys Dipstick Clnc MAIN LAB Urine Color YELLOW (YELLOW) Urine Appearance CLEAR (CLEAR) Urine pH 5.0 (5-6) Ur Specific Shannon 1.025 (1.005-1.025) POC Urine Protein Conf 0.2 (Negative) Urine Ketones TRACE A (NEGATIVE) Urine Nitrite NEGATIVE (NEGATIVE) Urine Bilirubin SMALL A (NEGATIVE) Urine Urobilinogen NORMAL (0-1) mg/dL Urine Leukocytes NEGATIVE (NEGATIVE) Urine WBC (Auto) 3-5 A (0-5) /HPF Urine RBC (Auto) NONE (0-2) /HPF U Hyaline Cast (Auto) 11-25 A (0-2) /LPF U Epithel Cells (Auto) RARE (FEW) /HPF Urine Bacteria (Auto) RARE (NEGATIVE) /HPF Urine RBC NEGATIVE (0-5) Jose Guadalupe/ul Urine Mucus (Auto) SLIGHT A (NEGATIVE) /HPF Ur Culture Indicated? NO Urine Glucose NEGATIVE (NEGATIVE) mg/dL Influenza Type A Ag NEGATIVE (NEGATIVE) Influenza Type B Ag NEGATIVE (NEGATIVE) RSV (PCR) NEGATIVE (Negative) SARS-CoV-2 (PCR) NEGATIVE (NEGATIVE) 08/23/22 08/23/22 Range/Units 11:50 11:50 WBC 18.2 H (4.0-10.5) x10^3/uL RBC 4.28 (4.1-5.4) x10^6/uL Hgb 12.4 (12.0-16.0) g/dL Hct 40.7 (35-47) % MCV 95.1 (78-100) fL MCH 29.0 (26-32) pg MCHC 30.5 L (32-36) g/dL RDW 13.2 (11.5-14.0) % Plt Count 257 (150-450) x10^3/uL MPV 11.7 H (7.5-11.0) fL Gran % 85.5 H (36.0-66.0) % Immature Gran % (Auto) 0.8 H (0.00-0.4) % Nucleat RBC Rel Count 0.0 (0.00-0.1) % Eos # (Auto) 0.10 (0-0.5) x10^3/uL Immature Gran # (Auto) 0.15 H (0.00-0.03) x10^3u/L Absolute Lymphs (auto) 1.08 (1.0-4.6) x10^3/uL Absolute Monos (auto) 1.27 (0.0-1.3) x10^3/uL Absolute Nucleated RBC 0.00 (0.00-0.01) x10^3u/L Lymphocytes % 5.9 L (24.0-44.0) % Monocytes % 7.0 (0.0-12.0) % Eosinophils % 0.5 (0.00-5.0) % Basophils % 0.3 (0.0-0.4) % Absolute Granulocytes 15.54 H (1.4-6.9) x10^3/uL Basophils # 0.06 (0-0.4) x10^3/uL Sodium 135 L (137-145) mmol/L Potassium 3.3 L (3.5-5.1) mmol/L Chloride 93 L (98-107) mmol/L Carbon Dioxide 31 H (22-30) mmol/L Anion Gap 13.1 (5-15) MEQ/L BUN 26 H (7-17) mg/dL Creatinine 3.28 H (0.52-1.04) mg/dL Estimated GFR 15.0 ML/MIN Glucose 155 H (74-106) mg/dL Lactic Acid (0.4-2.0) Calcium 9.0 (8.4-10.2) mg/dL Total Bilirubin 1.20 (0.2-1.3) mg/dL AST 55 H (14-36) U/L ALT 32 (0-35) U/L Alkaline Phosphatase 108 (38-126) U/L Serum Total Protein 7.6 (6.3-8.2) g/dL Albumin 4.1 (3.5-5.0) g/dL Lipase 185 (23-300) U/L Urinalys Dipstick Clnc Urine Color (YELLOW) Urine Appearance (CLEAR) Urine pH (5-6) Ur Specific Shannon (1.005-1.025) POC Urine Protein Conf (Negative) Urine Ketones (NEGATIVE) Urine Nitrite (NEGATIVE) Urine Bilirubin (NEGATIVE) Urine Urobilinogen (0-1) mg/dL Urine Leukocytes (NEGATIVE) Urine WBC (Auto) (0-5) /HPF Urine RBC (Auto) (0-2) /HPF U Hyaline Cast (Auto) (0-2) /LPF U Epithel Cells (Auto) (FEW) /HPF Urine Bacteria (Auto) (NEGATIVE) /HPF Urine RBC (0-5) Jose Guadalupe/ul Urine Mucus (Auto) (NEGATIVE) /HPF Ur Culture Indicated? Urine Glucose (NEGATIVE) mg/dL Influenza Type A Ag (NEGATIVE) Influenza Type B Ag (NEGATIVE) RSV (PCR) (Negative) SARS-CoV-2 (PCR) (NEGATIVE) - Progress Progress: improved Air Movement: fair Progress Note: patient responded well to the Compazine. She has had no more episodes of vomiting since arrival and her nausea is improved. She still reports some left lower quadrant abdominal pain. CT scan of her abdomen without contrast was negative for any acute findings this is not completely rule out diverticulitis in her left lower quadrant. Her labs showed an elevated white count at 18.2 with a left shift sodium 135 potassium 3.3 creatinine of 3.28 which is increased from 2.1 in June and a lactate of 3. her UA was negative for infection. No signs of sepsis on vitals. Her left anterior leg wound shows no evidence of i nfection. No bed sores appreciated that could be causing the leukocytosis. The working diagnosis is diverticulitis in her left lower quadrant as contributing to her nausea vomiting and leukocytosis. I feel like her KEMAL is due to her lack of p.o. intake over the past several weeks and chronic progression of her CKD. I discussed admission with the patient, but she strongly wanted to go home. We reached out to Dr. Fabrizio franco, her cotton cleaner who is okay with patient discharging home with close follow-up. I will send patient home with p.o. antibiotics and antiemetics. 08/25/22 16:14 Blood Culture(s) Obtained: No Antibiotics given: Yes Discussed with DrMerlin: Other (Deni) Counseled pt/family regarding: lab results, diagnosis, need for follow-up, rad results - Departure Departure Disposition: Home Clinical Impression: Diverticulitis, KEMAL (acute kidney injury) Leukocytosis Qualifiers: Leukocytosis type: bandemia Qualified Code(s): D72.825 - Bandemia Nausea & vomiting Qualifiers: Vomiting type: unspecified Qualified Code(s): R11.2 - Nausea with vomiting, unspecified Condition: Stable Critical Care Time: No Referrals: CANDICE ROCKWELL DO [Primary Care Provider] - Follow up/PCP as directed Instructions: Diverticulitis Prescriptions: Ciprofloxacin [Cipro 500 MG] 500 mg PO DAILY 10 Days #10 tablet Prochlorperazine Maleate [Compazine] 10 mg PO TID 5 Days #15 tablet Metronidazole 500 mg [Flagyl 500 MG] 500 mg PO TID 10 Days #30 tablet
[2022-08-23] MEDS ORDERED: Sodium Chloride 0.9% 1000 ML 1,000 ML IV STA (11:26)
[2022-08-23] MEDS ORDERED: Compazine 10 MG/2 ML IV ONE (11:26)
[2022-08-23 11:57] LABS: Absolute Neutrophil Ct (ANC) 15.54 x10^3/uL (1.4-6.9); Basophil (Absolute #) 0.06 x10^3/uL (0-0.4); Eosinophil % 0.5 % (0.00-5.0); Hematocrit 40.7 % (35-47); Hemoglobin 12.4 g/dL (12.0-16.0); Lymphocyte (Absolute #) 1.08 x10^3/uL (1.0-4.6); Lymphocytes % 5.9 % (24.0-44.0); Mean Cell Volume 95.1 fL (78-100); Mean Corpuscular Hgb Concent. 30.5 g/dL (32-36); Mean Platelet Volume 11.7 fL (7.5-11.0); Monocyte (Absolute #) 1.27 x10^3/uL (0.0-1.3); Neutrophil % 85.5 % (36.0-66.0); Platelet Count 257 x10^3/uL (150-450); Red Blood Count 4.28 x10^6/uL (4.1-5.4); Red Cell Distribution Width 13.2 % (11.5-14.0); White Blood Count 18.2 x10^3/uL (4.0-10.5)
[2022-08-23] MEDS ORDERED: Compazine 10 MG/2 ML ONE (11:58)
[2022-08-23] MEDS ORDERED: Sodium Chloride 0.9% 1000 ML 1,000 ML ONE (11:58)
[2022-08-23 12:09] LABS: Bacteria RARE /HPF (NEGATIVE); Epithelial Cells RARE /HPF (FEW); Mucus SLIGHT /HPF (NEGATIVE)
[2022-08-23 12:10] LABS: Appearance CLEAR (CLEAR); Bilirubin SMALL (NEGATIVE); Dipstick done @ ? MAIN LAB; Glucose NEGATIVE (NEGATIVE); Ketones TRACE (NEGATIVE); Nitrite NEGATIVE (NEGATIVE); Protein,Urine Dip 0.2 (Negative); RBC NEGATIVE Ery/ul (0-5); Specific Gravity 1.025 (1.005-1.025); Urobilinogen NORMAL mg/dL (0-1)
[2022-08-23 12:11] LABS: Urine Cultured Indicated? NO
[2022-08-23 12:15] LABS: ALBUMIN 4.1 g/dL (3.5-5.0); ANION GAP 13.1 MEQ/L (5-15); BILIRUBIN,TOTAL 1.2 mg/dL (0.2-1.3); Creatinine 1 3.28 mg/dL (0.52-1.04); Potassium 3.3 mmol/L (3.5-5.1); Total Protein 7.6 g/dL (6.3-8.2)
[2022-08-23 12:34] LABS: INFLUENZA A NEGATIVE (NEGATIVE); INFLUENZA B NEGATIVE (NEGATIVE); RESPIRATORY SYNCTIAL VIRUS NEGATIVE (Negative); SARS-CoV-2 Xpert Express NEGATIVE (NEGATIVE)
--- NOTE | 2022-08-23 12:54 | XRAY ---
Indication: Abdomen pain, nausea, and vomiting. Multiple contiguous axial images obtained through the abdomen and pelvis without contrast. Comparison: July 20, 2022 Lung bases again demonstrate minimal dependent atelectasis and small right lower lobe calcified granuloma. Heart remains borderline enlarged with pacer lead and partially visualized interatrial lipoma. Stable small hiatal hernia. Noncontrasted stomach and bowel loops remain nonobstructed again with normal appendix. Stable chronic findings including chronic pancreatitis calcifications, right renal adenoma, bilateral renal cysts, splenic calcified granulomas, and cholecystectomy clips. No free fluid/air. Remaining liver, pancreas, spleen, adrenal glands, kidneys, ureters, bladder, and uterus are unremarkable for noncontrast exam. Stable moderate aortoiliac calcifications without AAA. Impression: No change compared to CT one month ago. Again chronic findings including small hiatal hernia, bilateral renal cysts, right adrenal adenoma, arteriosclerotic disease, and old granulomatous disease. No new/acute findings on this noncontrast exam.
[2022-08-23 16:02] VITALS: BP 110/59; PULSE 72
[2022-08-23 16:09] VITALS: O2SAT 91
== END 2022-08-23 16:17 | disposition home or self-care (01) ==
LOC: ED 09:05
DX: K57.92 Diverticulitis of intestine, part unspecified, without perforation or abscess without bleeding (principal); N17.9 Acute kidney failure, unspecified; D72.825 Bandemia; R11.2 Nausea with vomiting, unspecified; R10.32 Left lower quadrant pain; R07.9 Chest pain, unspecified; E78.5 Hyperlipidemia, unspecified; I10 Essential (primary) hypertension; Z79.01 Long term (current) use of anticoagulants; Z79.899 Other long term (current) drug therapy; Z20.828 Contact with and (suspected) exposure to other viral communicable diseases
CPT/HCPCS: 0241U; 36000; 36415; 74176; 80053; 81015; 83605; 83690; 85025; 87040; 96374; 99284

== ENCOUNTER 2022-09-23 10:59 | Observation (INO) | payer MEDICARE, OTHER ==
--- NOTE | 2022-09-23 11:13 | ERPHSYRPT ---
- History of Present Illness Time Seen by Provider: 09/23/22 11:06 Source: patient, EMS, old records Exam Limitations: no limitations Physician History: pt is 67 year old female with 3 month hx N and V worse for past 5 days unable to take food or fluids. Prior admit at [facility] for same . reports 3 CT abd in past month all negative. Has referral for GI in next month. No CP or SOBreath but has pacer defib in place. No abd pain. Is shaking but states from the cold temp. Had treatment for ulcer left LE improving on wound care and unchanged by hx as well as chronic bilateral edema LE without reported change or symptoms, DIscussed risks/benefits of testing and pt wishes to proceed. chest clear ht reg without M. 1 + edema bilateral LE. Abd nontender without mass or peritoneal signs. ordered and reviewed discussed with pt. Labs - CBC , CMP, amylase, lipase, UA, EKG, Lactate. Trops. EKG has fasciular block Lat Ts prolonged QT. Outside medical records from [facility] reviewed including CT reading, Progress and DC notes Diagnoses, and labs. Old records frm here were reviewed and although trops have been in medium range - not this high before. Consulted and Discussed with Dr. Ordaz covering and regarding EKG findings of LPFB, Hx implanted DFib, CRF possibly elevating trops and all agree ( including pt and family) that we should stay in hosp for intractable vomiting, and observe trops for ht . Hx also now independent verified by interview of . Timing/Duration: week(s), intermittent Severity: moderate Associated Symptoms: nausea, vomiting Allergies/Adverse Reactions: lorazepam Adverse Reaction (Intermediate, Verified 09/23/22 11:04) "made me weird" Sleep walking Home Medications: Rivaroxaban [Xarelto] 15 mg PO DAILY 05/21/18 [History] Atorvastatin Calcium 80 mg PO HS 07/30/19 [History] ALPRAZolam [Alprazolam] 1 mg PO BIDPRN PRN 07/20/22 [History] Amiodarone HCl 200 mg PO DAILY 07/20/22 [History] Bumetanide 2 mg PO BID 07/20/22 [History] Carvedilol 12.5 mg [Coreg 12.5 mg] 25 mg PO BID 07/20/22 [History] Cholecalciferol (Vitamin D3) [D3-5000] 125 mcg PO DAILY 07/20/22 [History] Ezetimibe 10 mg [Zetia 10 MG] 10 mg PO HS 07/20/22 [History] Levothyroxine Sodium 112 Mcg [Synthroid 112 Mcg] 112 mcg PO DAILY 07/20/22 [History] Potassium Chloride Tab* [Klor Con] 20 meq PO TID 07/20/22 [History] Ondansetron [Ondansetron Odt ] 1 tab PO Q6H PRN PRN 09/23/22 [History] Hx Tetanus, Diphtheria Vaccination/Date Given: Yes Hx Influenza Vaccination/Date Given: Yes Hx Pneumococcal Vaccination/Date Given: No Travel Risk - Vaccine Status Have you recieved a Covid-19 vaccination: 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[employer]: [employer] - Review of Systems Constitutional: No Fever, No Chills Eyes: No Symptoms Ears, Nose, & Throat: No Symptoms Respiratory: No Cough, No Dyspnea Cardiac: Edema, No Chest Pain, No Syncope Abdominal/Gastrointestinal: Nausea, Vomiting, Diarrhea (small amount recently), No Abdominal Pain Genitourinary Symptoms: No Dysuria Musculoskeletal: No Back Pain, No Neck Pain Skin: No Rash Neurological: No Dizziness, No Focal Weakness, No Sensory Changes Psychological: No Symptoms Endocrine: No Symptoms Hematologic/Lymphatic: No Symptoms Immunological/Allergic: No Symptoms All Other Systems: Reviewed and Negative - Past Medical History Pertinent Past Medical History: Yes Cardiac History: Arrhythmia, High Cholesterol, Hypertension Respiratory History: COPD, Emphysema Endocrine Medical History: Hypothyroidism Musculoskeletal History: No Pertinent History GI Medical History: No Pertinent History History: No Pertinent History Psycho-Social History: Anxiety Female Reproductive Disorders: No Pertinent History Other Medical History: CARDIOMYOPATHY, Gout, LLE wound infection currently being treated by Dr. Dumas - Past Surgical History Past Surgical History: Yes Neuro Surgical History: No Pertinent History Cardiac: Internal Defibrillator Respiratory: No Pertinent History Gastrointestinal: Cholecystectomy Musculoskeletal: Orthopedic Surgery Other Surgical History: ROTATOR CUFF, L FOOT SX - Social History Smoking Status: Former smoker Exposure to second hand smoke: No Drug Use: none Patient Lives Alone: No - Nursing Vital Signs Nursing Vital Signs: Initial Vital Signs Temperature 98.3 F 09/23/22 11:04 Pulse Rate 67 09/23/22 11:04 Respiratory Rate 20 09/23/22 11:04 Blood Pressure 179/75 09/23/22 11:04 O2 Sat by Pulse Oximetry 95 09/23/22 11:04 Pain Scale Pain Intensity 0 - Physical Exam General Appearance: no apparent distress, alert Eye Exam: PERRL/EOMI, eyes nml inspection Ears, Nose, Throat Exam: normal ENT inspection, TMs normal, pharynx normal, moist mucous membranes Neck Exam: normal inspection, non-tender, supple, full range of motion Respiratory Exam: normal breath sounds, lungs clear, No respiratory distress Cardiovascular Exam: regular rate/rhythm, normal heart sounds, normal peripheral pulses Gastrointestinal/Abdomen Exam: soft, normal bowel sounds, No tenderness, No distention, No mass, No guarding Pelvic Exam: deferred Rectal Exam: deferred Back Exam: normal inspection, normal range of motion, No CVA tenderness, No vertebral tenderness Extremity Exam: normal range of motion, pelvis stable, pedal edema, other (healing left anterior LE ulcer. ) Neurologic Exam: alert, oriented x 3, cooperative, normal mood/affect, nml cerebellar function, nml station & gait, sensation nml, No motor deficits Skin Exam: normal color, warm, dry, No rash Lymphatic Exam: No adenopathy SpO2 Interpretation: normal SpO2: 96 O2 Delivery: Room Air - Course Nursing assessment & vital signs reviewed: Yes EKG Interpreted by Me: Sinus Rhythm, prolonged QT interval, Non-specific ST Changes, Other (LPFB, lateral t waves inv) Ordered Tests: Active Orders 24 hr Category Date Time Status EKG-ER Only STAT Care 09/23/22 11:17 Active IV Insertion STAT Care 09/23/22 11:17 Active AMYLASE Stat Lab 09/23/22 12:21 Completed CBC W DIFF Stat Lab 09/23/22 12:21 Completed CMP Stat Lab 09/23/22 12:21 Completed CULTURE,URINE Stat Lab 09/23/22 11:41 Received LIPASE Stat Lab 09/23/22 12:21 Completed Lactic Acid Stat Lab 09/23/22 12:21 Completed TROPONIN Q4H Lab 09/23/22 12:21 Completed TROPONIN Q4H Lab 09/23/22 15:30 Ordered TROPONIN Q4H Lab 09/23/22 19:30 Ordered UA W/RFX UR CULTURE Stat Lab 09/23/22 11:41 Completed Medication Summary Discontinued Medications Generic Name Dose Route Start Last Admin Trade Name Freq PRN Reason Stop Dose Admin Famotidine 20 mg 09/23/22 11:17 09/23/22 12:12 Famotidine 20 Mg/1 Vial IV 09/23/22 11:18 20 mg STAT ONE Administration Famotidine Confirm 09/23/22 12:09 Famotidine 20 Mg/1 Vial Administered 09/23/22 12:10 Dose 20 mg IV .STK-MED ONE Sodium Chloride 1,000 mls @ 999 mls/hr 09/23/22 11:17 09/23/22 13:15 Sodium Chloride 0.9% 1000 Ml IV 09/23/22 12:17 Infused .Q1H1M STA Infusion Sodium Chloride Confirm 09/23/22 12:09 Sodium Chloride 0.9% 1000 Ml Administered 09/23/22 12:10 Dose 1,000 mls @ ud .ROUTE .STK-MED ONE Pantoprazole Sodium 40 mg 09/23/22 11:17 09/23/22 12:12 Pantoprazole 40 Mg Vial IV 09/23/22 11:18 40 mg STAT ONE Administration Pantoprazole Sodium Confirm 09/23/22 12:09 Pantoprazole 40 Mg Vial Administered 09/23/22 12:10 Dose 40 mg IV .STK-MED ONE Prochlorperazine Edisylate 10 mg 09/23/22 11:19 09/23/22 12:17 Prochlorperazine Edisylate 10 Mg/2 Ml Vial IM 09/23/22 11:20 10 mg STAT ONE Administration Prochlorperazine Edisylate Confirm 09/23/22 12:09 Prochlorperazine Edisylate 10 Mg/2 Ml Vial Administered 09/23/22 12:10 Dose 10 mg .ROUTE .STK-MED ONE Lab/Rad Data: Laboratory Result Diagrams 09/23/22 12:21 09/23/22 12:21 Laboratory Results 09/23/22 09/23/22 09/23/22 Range/Units 12:21 12:21 12:21 WBC (4.0-10.5) x10^3/uL RBC (4.1-5.4) x10^6/uL Hgb (12.0-16.0) g/dL Hct (35-47) % MCV (78-100) fL MCH (26-32) pg MCHC (32-36) g/dL RDW (11.5-14.0) % Plt Count (150-450) x10^3/uL MPV (7.5-11.0) fL Gran % (36.0-66.0) % Immature Gran % (Auto) (0.00-0.4) % Nucleat RBC Rel Count (0.00-0.1) % Eos # (Auto) (0-0.5) x10^3/uL Immature Gran # (Auto) (0.00-0.03) x10^3u/L Absolute Lymphs (auto) (1.0-4.6) x10^3/uL Absolute Monos (auto) (0.0-1.3) x10^3/uL Absolute Nucleated RBC (0.00-0.01) x10^3u/L Lymphocytes % (24.0-44.0) % Monocytes % (0.0-12.0) % Eosinophils % (0.00-5.0) % Basophils % (0.0-0.4) % Absolute Granulocytes (1.4-6.9) x10^3/uL Basophils # (0-0.4) x10^3/uL Sodium 135 L (137-145) mmol/L Potassium 4.3 (3.5-5.1) mmol/L Chloride 101 (98-107) mmol/L Carbon Dioxide 25 (22-30) mmol/L Anion Gap 13.3 (5-15) MEQ/L BUN 9 (7-17) mg/dL Creatinine 1.72 H (0.52-1.04) mg/dL Estimated GFR 31.6 ML/MIN Glucose 109 H (74-106) mg/dL Lactic Acid (0.4-2.0) Calcium 8.8 (8.4-10.2) mg/dL Total Bilirubin 0.80 (0.2-1.3) mg/dL AST 52 H (14-36) U/L ALT 27 (0-35) U/L Alkaline Phosphatase 120 (38-126) U/L Troponin I 0.064 H* (0.000-0.034) ng/mL Serum Total Protein 6.7 (6.3-8.2) g/dL Albumin 3.6 (3.5-5.0) g/dL Amylase 59 (30-110) U/L Lipase 182 (23-300) U/L Urine Color (Yellow) Urine Appearance (Clear) Urine pH (4.6-8.0) Ur Specific [place] (1.005-1.030) Urine Protein (Negative) Urine Glucose (UA) (Negative) mg/dL Urine Ketones (Negative) Urine Blood (Negative) Urine Nitrite (Negative) Urine Bilirubin (Negative) Urine Urobilinogen (0.2) mg/dL Ur Leukocyte Esterase (Negative) U Hyaline Cast (Auto) (0-2) /LPF Urine Microscopic RBC (0-5) /HPF Urine Microscopic WBC (0-5) /HPF Ur Epithelial Cells (None Seen) /HPF Urine Bacteria (None Seen) /HPF Urine Culture Reflexed (NO) Influenza Type A Ag NEGATIVE (NEGATIVE) Influenza Type B Ag NEGATIVE (NEGATIVE) RSV (PCR) NEGATIVE (Negative) SARS-CoV-2 (PCR) NEGATIVE (NEGATIVE) 09/23/22 09/23/22 09/23/22 Range/Units 12:21 12:21 11:41 WBC 5.2 (4.0-10.5) x10^3/uL RBC 4.52 (4.1-5.4) x10^6/uL Hgb 12.6 (12.0-16.0) g/dL Hct 41.7 (35-47) % MCV 92.3 (78-100) fL MCH 27.9 (26-32) pg MCHC 30.2 L (32-36) g/dL RDW 13.9 (11.5-14.0) % Plt Count 220 (150-450) x10^3/uL MPV 12.3 H (7.5-11.0) fL Gran % 68.9 H (36.0-66.0) % Immature Gran % (Auto) 0.6 H (0.00-0.4) % Nucleat RBC Rel Count 0.0 (0.00-0.1) % Eos # (Auto) 0.11 (0-0.5) x10^3/uL Immature Gran # (Auto) 0.03 (0.00-0.03) x10^3u/L Absolute Lymphs (auto) 0.91 L (1.0-4.6) x10^3/uL Absolute Monos (auto) 0.52 (0.0-1.3) x10^3/uL Absolute Nucleated RBC 0.00 (0.00-0.01) x10^3u/L Lymphocytes % 17.4 L (24.0-44.0) % Monocytes % 10.0 (0.0-12.0) % Eosinophils % 2.1 (0.00-5.0) % Basophils % 1.0 (0.0-0.4) % Absolute Granulocytes 3.60 (1.4-6.9) x10^3/uL Basophils # 0.05 (0-0.4) x10^3/uL Sodium (137-145) mmol/L Potassium (3.5-5.1) mmol/L Chloride (98-107) mmol/L Carbon Dioxide (22-30) mmol/L Anion Gap (5-15) MEQ/L BUN (7-17) mg/dL Creatinine (0.52-1.04) mg/dL Estimated GFR ML/MIN Glucose (74-106) mg/dL Lactic Acid 1.5 (0.4-2.0) Calcium (8.4-10.2) mg/dL Total Bilirubin (0.2-1.3) mg/dL AST (14-36) U/L ALT (0-35) U/L Alkaline Phosphatase (38-126) U/L Troponin I (0.000-0.034) ng/mL Serum Total Protein (6.3-8.2) g/dL Albumin (3.5-5.0) g/dL Amylase (30-110) U/L Lipase (23-300) U/L Urine Color Dark Yellow A (Yellow) Urine Appearance Cloudy A (Clear) Urine pH 5.0 (4.6-8.0) Ur Specific [place] 1.025 (1.005-1.030) Urine Protein 30 (Negative) Urine Glucose (UA) Negative (Negative) mg/dL Urine Ketones Trace A (Negative) Urine Blood Large A (Negative) Urine Nitrite Negative (Negative) Urine Bilirubin Moderate A (Negative) Urine Urobilinogen 1.0 A (0.2) mg/dL Ur Leukocyte Esterase Negative (Negative) U Hyaline Cast (Auto) 26-50 A (0-2) /LPF Urine Microscopic RBC 3-5 (0-5) /HPF Urine Microscopic WBC 3-5 (0-5) /HPF Ur Epithelial Cells Few (None Seen) /HPF Urine Bacteria None Seen (None Seen) /HPF Urine Culture Reflexed YES (NO) Influenza Type A Ag (NEGATIVE) Influenza Type B Ag (NEGATIVE) RSV (PCR) (Negative) SARS-CoV-2 (PCR) (NEGATIVE) - Progress Progress: improved, re-examined Progress Note: 09/23/22 14:12 elevated trop discussed - no CP and may be result from RFTs 09/23/22 14:57 Outside med listing from [facility] as well as CT scan results and Med lists all reviewed. 09/23/22 15:[address] abd scans collaborates the normal abd exam on serial palpation and there seems unlikely to be significant acute pathology, but remains no known cause for the vomiting. pt advised and consulted/discussed with Dr. ordaz - 09/23/22 15:06 Since no CP we are not giving ASA or NTG. Discussed with : Kacey Will see patient in: hospital (observation) Counseled pt/family regarding: lab results, diagnosis, need for follow-up, rad results (outside results reviewed and discussed) - Departure Departure Disposition: Observation Clinical Impression: Intractable vomiting with nausea, Elevated troponin, CRD (chronic renal disease) Condition: Good Critical Care Time: No Referrals: CANDICE ROCKWELL, [Primary Care Provider] - Follow up/PCP as directed
[2022-09-23] MEDS ORDERED: PROTONIX 40 MG IV IV ONE ×2 (11:17→12:09)
[2022-09-23] MEDS ORDERED: Sodium Chloride 0.9% 1000 ML 1,000 ML IV STA (11:17)
[2022-09-23] MEDS ORDERED: Pepcid 20 MG VIAL IV ONE ×2 (11:17→12:09)
[2022-09-23] MEDS ORDERED: Compazine 10 MG/2 ML IM ONE (11:19)
[2022-09-23] MEDS ORDERED: Sodium Chloride 0.9% 1000 ML 1,000 ML ONE (12:09)
[2022-09-23] MEDS ORDERED: Compazine 10 MG/2 ML ONE (12:09)
[2022-09-23 12:11] LABS: Appearance Cloudy (Clear); Bacteria None Seen /HPF (None Seen); Bilirubin Moderate (Negative); Blood Large (Negative); Epithelial Cells Few /HPF (None Seen); Glucose, Urine Negative (Negative); Ketones Trace (Negative); Leukocyte Esterase Negative (Negative); Nitrite Negative (Negative); Protein,Urine Dip 30 (Negative); Specific Gravity 1.025 (1.005-1.030)
[2022-09-23 12:12] LABS: ADD URINE CULTURE? YES (NO); Hyaline Casts 26-50 /LPF (0-2)
[2022-09-23 12:22] LABS: Basophil (Absolute #) 0.05 x10^3/uL (0-0.4); Eosinophil % 2.1 % (0.00-5.0); Eosinophil (Absolute #) 0.11 x10^3/uL (0-0.5); Hematocrit 41.7 % (35-47); Hemoglobin 12.6 g/dL (12.0-16.0); IMMATURE GRAN # 0.03 x10^3u/L (0.00-0.03); IMMATURE GRAN % 0.6 % (0.00-0.4); Lymphocyte (Absolute #) 0.91 x10^3/uL (1.0-4.6); Lymphocytes % 17.4 % (24.0-44.0); Mean Cell Volume 92.3 fL (78-100); Mean Corpuscular Hemoglobin 27.9 pg (26-32); Mean Corpuscular Hgb Concent. 30.2 g/dL (32-36); Mean Platelet Volume 12.3 fL (7.5-11.0); Monocyte (Absolute #) 0.52 x10^3/uL (0.0-1.3); Neutrophil % 68.9 % (36.0-66.0); Platelet Count 220 x10^3/uL (150-450); Red Blood Count 4.52 x10^6/uL (4.1-5.4); Red Cell Distribution Width 13.9 % (11.5-14.0); White Blood Count 5.2 x10^3/uL (4.0-10.5)
[2022-09-23 12:39] LABS: ALBUMIN 3.6 g/dL (3.5-5.0); BILIRUBIN,TOTAL 0.8 mg/dL (0.2-1.3); Calcium 8.8 mg/dL (8.4-10.2); Creatinine 1 1.72 mg/dL (0.52-1.04); EST GLOMERULAR FILTRATION RATE 31.6 ML/MIN; Total Protein 6.7 g/dL (6.3-8.2)
[2022-09-23 12:41] LABS: Potassium 4.3 mmol/L (3.5-5.1)
[2022-09-23 12:42] LABS: ANION GAP 13.3 MEQ/L (5-15)
[2022-09-23 12:53] LABS: INFLUENZA A NEGATIVE (NEGATIVE); INFLUENZA B NEGATIVE (NEGATIVE); RESPIRATORY SYNCTIAL VIRUS NEGATIVE (Negative); SARS-CoV-2 Xpert Express NEGATIVE (NEGATIVE)
[2022-09-23] MEDS ORDERED: VALIUM 10 MG/2 ML SYRINGE IV ONE (15:01)
[2022-09-23] MEDS ORDERED: VALIUM 10 MG/2 ML SYRINGE ONE (15:05)
[2022-09-23] MEDS ORDERED: Valium 5 MG PO PRN (15:29)
[2022-09-23] MEDS ORDERED: HUMULIN R SQ PRN (15:29)
[2022-09-23] MEDS: Sodium Chloride 0.9% 1000 ML 1,000 ML IV SCH ×2 (15:54→21:11)
[2022-09-23] MEDS: Compazine 10 MG/2 ML IV PRN ×2 (16:29→20:41)
--- NOTE | 2022-09-23 17:37 | PCM.HP ---
History of Present Illness - Chief Complaint Chief Complaint: Intractable vomiting, elevated troponin History of Present Illness: is a 67 year old female who presented to the ER with history of severe nausea and vomiting, states she has been unable to eat anything for the last several days, has had some mild diarrhea but not severe. Having problems intermittently for the last 3 months, awaiting GI consult but not scheduled until October. has no pain, no fever, no cough. - Review of Systems Constitutional: No Fever, No Chills Abdominal/Gastrointestinal: Nausea, Vomiting, Diarrhea, No Abdominal Pain, No Constipation Genitourinary Symptoms: No Dysuria Skin: No Rash All Other Systems: Reviewed and Negative Medications & Allergies Home Medications: Home Medication List Rivaroxaban [Xarelto] 15 mg PO DAILY 05/21/18 [History Confirmed 09/23/22] Atorvastatin Calcium 80 mg PO HS 07/30/19 [History Confirmed 09/23/22] ALPRAZolam [Alprazolam] 1 mg PO BIDPRN PRN 07/20/22 [History Confirmed 09/23/22] Amiodarone HCl 200 mg PO DAILY 07/20/22 [History Confirmed 09/23/22] Bumetanide 2 mg PO DAILY 07/20/22 [History Confirmed 09/23/22] Carvedilol 12.5 mg [Coreg 12.5 mg] 12.5 mg PO BID 07/20/22 [History Confirmed 09/23/22] Cholecalciferol (Vitamin D3) [D3-5000] 125 mcg PO DAILY 07/20/22 [History C onfirmed 09/23/22] Ezetimibe 10 mg [Zetia 10 MG] 10 mg PO HS 07/20/22 [History Confirmed 09/23/22] Levothyroxine Sodium 112 Mcg [Synthroid 112 Mcg] 112 mcg PO DAILY 07/20/22 [History Confirmed 09/23/22] Potassium Chloride Tab* [Klor Con] 20 meq PO TID 07/20/22 [History Confirmed 09/23/22] Ondansetron [Ondansetron Odt ] 1 tab PO Q6H PRN PRN 09/23/22 [History Confirmed 09/23/22] Allergies/Adverse Reactions: Allergies Allergy/AdvReac Type Severity Reaction Status Date / Time lorazepam AdvReac Intermediate Verified 09/23/22 11:04 - Past Medical History Past Medical History: Yes Cardiac History: Arrhythmia, High Cholesterol, Hypertension Respiratory History: COPD, Emphysema Endocrine Medical History: Hypothyroidism Musculoskelatal History: No Pertinent History GI Medical History: No Pertinent History History: No Pertinent History Pyscho-Social History: Anxiety Reproductive Disorders: No Pertinent History Comment: CARDIOMYOPATHY, Gout, - Past Surgical History Past Surgical History: Yes Neuro Surgical History: No Pertinent History Cardiac History: Internal Defibrillator Respiratory Surgery: No Pertinent History GI Surgical History: Cholecystectomy Musculskeletal Surgical Hx: Orthopedic Surgery Other Surgical History: ROTATOR CUFF, L FOOT SX - Social History Smoking Status: Former smoker Exposure to second hand smoke: No Alcohol: None Drug Use: none - Physical Exam Vital Signs: Vital Signs - 24 hr Temp Pulse Resp BP Pulse Ox 09/23/22 16:11 98.9 F 70 18 148/65 91 L 09/23/22 15:50 68 18 97 09/23/22 15:45 98.9 F 70 18 148/65 91 L 09/23/22 15:07 96 09/23/22 14:45 74 17 179/65 98 09/23/22 13:47 67 20 176/65 88 L 09/23/22 12:20 67 18 183/71 95 09/23/22 12:00 69 20 183/71 94 L 09/23/22 11:04 98.3 F 67 20 179/75 95 General Appearance: obese Neurologic Exam: alert, oriented x 3, cooperative Respiratory Exam: normal breath sounds, lungs clear, No respiratory distress Cardiovascular Exam: regular rate/rhythm, normal heart sounds, normal peripheral pulses Gastrointestinal/Abdomen Exam: soft, normal bowel sounds, No tenderness, No mass Extremity Exam: normal inspection, normal range of motion, pelvis stable Results - Labs Lab/Micro Results: Lab Results-Last 24 Hours 09/23/22 09/23/22 09/23/22 Range/Units 11:41 12:21 12:21 WBC 5.2 (4.0-10.5) x10^3/uL RBC 4.52 (4.1-5.4) x10^6/uL Hgb 12.6 (12.0-16.0) g/dL Hct 41.7 (35-47) % MCV 92.3 (78-100) fL MCH 27.9 (26-32) pg MCHC 30.2 L (32-36) g/dL RDW 13.9 (11.5-14.0) % Plt Count 220 (150-450) x10^3/uL MPV 12.3 H (7.5-11.0) fL Gran % 68.9 H (36.0-66.0) % Immature Gran % (Auto) 0.6 H (0.00-0.4) % Nucleat RBC Rel Count 0.0 (0.00-0.1) % Eos # (Auto) 0.11 (0-0.5) x10^3/uL Immature Gran # (Auto) 0.03 (0.00-0.03) x10^3u/L Absolute Lymphs (auto) 0.91 L (1.0-4.6) x10^3/uL Absolute Monos (auto) 0.52 (0.0-1.3) x10^3/uL Absolute Nucleated RBC 0.00 (0.00-0.01) x10^3u/L Lymphocytes % 17.4 L (24.0-44.0) % Monocytes % 10.0 (0.0-12.0) % Eosinophils % 2.1 (0.00-5.0) % Basophils % 1.0 (0.0-0.4) % Absolute Granulocytes 3.60 (1.4-6.9) x10^3/uL Basophils # 0.05 (0-0.4) x10^3/uL Sodium (137-145) mmol/L Potassium (3.5-5.1) mmol/L Chloride (98-107) mmol/L Carbon Dioxide (22-30) mmol/L Anion Gap (5-15) MEQ/L BUN (7-17) mg/dL Creatinine (0.52-1.04) mg/dL Estimated GFR ML/MIN Glucose (74-106) mg/dL Lactic Acid 1.5 (0.4-2.0) Calcium (8.4-10.2) mg/dL Total Bilirubin (0.2-1.3) mg/dL AST (14-36) U/L ALT (0-35) U/L Alkaline Phosphatase (38-126) U/L Troponin I (0.000-0.034) ng/mL Serum Total Protein (6.3-8.2) g/dL Albumin (3.5-5.0) g/dL Amylase (30-110) U/L Lipase (23-300) U/L Urine Color Dark Yellow A (Yellow) Urine Appearance Cloudy A (Clear) Urine pH 5.0 (4.6-8.0) Ur Specific [place] 1.025 (1.005-1.030) Urine Protein 30 (Negative) Urine Glucose (UA) Negative (Negative) mg/dL Urine Ketones Trace A (Negative) Urine Blood Large A (Negative) Urine Nitrite Negative (Negative) Urine Bilirubin Moderate A (Negative) Urine Urobilinogen 1.0 A (0.2) mg/dL Ur Leukocyte Esterase Negative (Negative) U Hyaline Cast (Auto) 26-50 A (0-2) /LPF Urine Microscopic RBC 3-5 (0-5) /HPF Urine Microscopic WBC 3-5 (0-5) /HPF Ur Epithelial Cells Few (None Seen) /HPF Urine Bacteria None Seen (None Seen) /HPF Urine Culture Reflexed YES (NO) Influenza Type A Ag (NEGATIVE) Influenza Type B Ag (NEGATIVE) RSV (PCR) (Negative) SARS-CoV-2 (PCR) (NEGATIVE) 09/23/22 09/23/22 09/23/22 Range/Units 12:21 12:21 12:21 WBC (4.0-10.5) x10^3/uL RBC (4.1-5.4) x10^6/uL Hgb (12.0-16.0) g/dL Hct (35-47) % MCV (78-100) fL MCH (26-32) pg MCHC (32-36) g/dL RDW (11.5-14.0) % Plt Count (150-450) x10^3/uL MPV (7.5-11.0) fL Gran % (36.0-66.0) % Immature Gran % (Auto) (0.00-0.4) % Nucleat RBC Rel Count (0.00-0.1) % Eos # (Auto) (0-0.5) x10^3/uL Immature Gran # (Auto) (0.00-0.03) x10^3u/L Absolute Lymphs (auto) (1.0-4.6) x10^3/uL Absolute Monos (auto) (0.0-1.3) x10^3/uL Absolute Nucleated RBC (0.00-0.01) x10^3u/L Lymphocytes % (24.0-44.0) % Monocytes % (0.0-12.0) % Eosinophils % (0.00-5.0) % Basophils % (0.0-0.4) % Absolute Granulocytes (1.4-6.9) x10^3/uL Basophils # (0-0.4) x10^3/uL Sodium 135 L (137-145) mmol/L Potassium 4.3 (3.5-5.1) mmol/L Chloride 101 (98-107) mmol/L Carbon Dioxide 25 (22-30) mmol/L Anion Gap 13.3 (5-15) MEQ/L BUN 9 (7-17) mg/dL Creatinine 1.72 H (0.52-1.04) mg/dL Estimated GFR 31.6 ML/MIN Glucose 109 H (74-106) mg/dL Lactic Acid (0.4-2.0) Calcium 8.8 (8.4-10.2) mg/dL Total Bilirubin 0.80 (0.2-1.3) mg/dL AST 52 H (14-36) U/L ALT 27 (0-35) U/L Alkaline Phosphatase 120 (38-126) U/L Troponin I 0.064 H* (0.000-0.034) ng/mL Serum Total Protein 6.7 (6.3-8.2) g/dL Albumin 3.6 (3.5-5.0) g/dL Amylase 59 (30-110) U/L Lipase 182 (23-300) U/L Urine Color (Yellow) Urine Appearance (Clear) Urine pH (4.6-8.0) Ur Specific [place] (1.005-1.030) Urine Protein (Negative) Urine Glucose (UA) (Negative) mg/dL Urine Ketones (Negative) Urine Blood (Negative) Urine Nitrite (Negative) Urine Bilirubin (Negative) Urine Urobilinogen (0.2) mg/dL Ur Leukocyte Esterase (Negative) U Hyaline Cast (Auto) (0-2) /LPF Urine Microscopic RBC (0-5) /HPF Urine Microscopic WBC (0-5) /HPF Ur Epithelial Cells (None Seen) /HPF Urine Bacteria (None Seen) /HPF Urine Culture Reflexed (NO) Influenza Type A Ag NEGATIVE (NEGATIVE) Influenza Type B Ag NEGATIVE (NEGATIVE) RSV (PCR) NEGATIVE (Negative) SARS-CoV-2 (PCR) NEGATIVE (NEGATIVE) 09/23/22 Range/Units 15:57 WBC (4.0-10.5) x10^3/uL RBC (4.1-5.4) x10^6/uL Hgb (12.0-16.0) g/dL Hct (35-47) % MCV (78-100) fL MCH (26-32) pg MCHC (32-36) g/dL RDW (11.5-14.0) % Plt Count (150-450) x10^3/uL MPV (7.5-11.0) fL Gran % (36.0-66.0) % Immature Gran % (Auto) (0.00-0.4) % Nucleat RBC Rel Count (0.00-0.1) % Eos # (Auto) (0-0.5) x10^3/uL Immature Gran # (Auto) (0.00-0.03) x10^3u/L Absolute Lymphs (auto) (1.0-4.6) x10^3/uL Absolute Monos (auto) (0.0-1.3) x10^3/uL Absolute Nucleated RBC (0.00-0.01) x10^3u/L Lymphocytes % (24.0-44.0) % Monocytes % (0.0-12.0) % Eosinophils % (0.00-5.0) % Basophils % (0.0-0.4) % Absolute Granulocytes (1.4-6.9) x10^3/uL Basophils # (0-0.4) x10^3/uL Sodium (137-145) mmol/L Potassium (3.5-5.1) mmol/L Chloride (98-107) mmol/L Carbon Dioxide (22-30) mmol/L Anion Gap (5-15) MEQ/L BUN (7-17) mg/dL Creatinine (0.52-1.04) mg/dL Estimated GFR ML/MIN Glucose (74-106) mg/dL Lactic Acid (0.4-2.0) Calcium (8.4-10.2) mg/dL Total Bilirubin (0.2-1.3) mg/dL AST (14-36) U/L ALT (0-35) U/L Alkaline Phosphatase (38-126) U/L Troponin I 0.052 H* (0.000-0.034) ng/mL Serum Total Protein (6.3-8.2) g/dL Albumin (3.5-5.0) g/dL Amylase (30-110) U/L Lipase (23-300) U/L Urine Color (Yellow) Urine Appearance (Clear) Urine pH (4.6-8.0) Ur Specific [place] (1.005-1.030) Urine Protein (Negative) Urine Glucose (UA) (Negative) mg/dL Urine Ketones (Negative) Urine Blood (Negative) Urine Nitrite (Negative) Urine Bilirubin (Negative) Urine Urobilinogen (0.2) mg/dL Ur Leukocyte Esterase (Negative) U Hyaline Cast (Auto) (0-2) /LPF Urine Microscopic RBC (0-5) /HPF Urine Microscopic WBC (0-5) /HPF Ur Epithelial Cells (None Seen) /HPF Urine Bacteria (None Seen) /HPF Urine Culture Reflexed (NO) Influenza Type A Ag (NEGATIVE) Influenza Type B Ag (NEGATIVE) RSV (PCR) (Negative) SARS-CoV-2 (PCR) (NEGATIVE) - Other Procedures and Tests Respiratory Therapy 09/23/22 16:13 Respiratory Therapy Assessment DAILY 09/23/22 16:16 Oxygen Nasal Cannula 2 lpm 09/23/22 16:17 BiPap/CPAP ROUTINE Assessment/Plan (1) Intractable vomiting with nausea Current Visit: Yes Status: Acute Assessment & Plan: improved with compazine, continue IV fluids. renal function is actually improved compared to previous results. Code(s): R11.2 - NAUSEA WITH VOMITING, UNSPECIFIED (2) CRD (chronic renal disease) Current Visit: Yes Status: Acute Assessment & Plan: stable Code(s): N18.9 - CHRONIC KIDNEY DISEASE, UNSPECIFIED (3) Elevated troponin Current Visit: Yes Status: Acute Assessment & Plan: trending down with hydration ,no chest pain or dyspnea Code(s): R77.8 - OTHER SPECIFIED ABNORMALITIES OF PLASMA PROTEINS
[2022-09-23] MEDS: Pepcid 20 MG VIAL IV SCH (20:41)
[2022-09-23] MEDS ORDERED: NORCO 5/325 MG PO PRN (21:26)
[2022-09-23] MEDS ORDERED: IMODIUM 2 MG PO PRN (21:26)
[2022-09-23] MEDS: XARELTO 10 MG TABLET PO SCH (21:41)
[2022-09-23] MEDS: XANAX 1 MG PO PRN (21:42)
[2022-09-23] MEDS: COREG 12.5 MG PO SCH (21:48)
[2022-09-23] MEDS ORDERED: COREG 12.5 MG PO SCH (22:00)
[2022-09-23] MEDS ORDERED: ZOCOR 20MG PO SCH (22:00)
[2022-09-24 06:10] LABS: BASOPHIL % 0.9 % (0.0-0.4); Basophil (Absolute #) 0.04 x10^3/uL (0-0.4); Eosinophil % 2.8 % (0.00-5.0); Eosinophil (Absolute #) 0.13 x10^3/uL (0-0.5); Hemoglobin 10.8 g/dL (12.0-16.0); IMMATURE GRAN # 0.02 x10^3u/L (0.00-0.03); IMMATURE GRAN % 0.4 % (0.00-0.4); Lymphocytes % 17.5 % (24.0-44.0); Mean Cell Volume 92.3 fL (78-100); Mean Corpuscular Hemoglobin 27.7 pg (26-32); Mean Platelet Volume 12.4 fL (7.5-11.0); Monocyte (Absolute #) 0.58 x10^3/uL (0.0-1.3); Monocytes % 12.7 % (0.0-12.0); Neutrophil % 65.7 % (36.0-66.0); Platelet Count 204 x10^3/uL (150-450); Red Cell Distribution Width 14.4 % (11.5-14.0); White Blood Count 4.6 x10^3/uL (4.0-10.5)
[2022-09-24] MEDS: Sodium Chloride 0.9% 1000 ML 1,000 ML IV SCH ×2 (06:18→20:33)
[2022-09-24 06:41] LABS: ALBUMIN 2.7 g/dL (3.5-5.0); ANION GAP 8.1 MEQ/L (5-15); BILIRUBIN,TOTAL 0.6 mg/dL (0.2-1.3); Calcium 7.7 mg/dL (8.4-10.2); Creatinine 1 1.7 mg/dL (0.52-1.04); EST GLOMERULAR FILTRATION RATE 32.1 ML/MIN; Potassium 3.8 mmol/L (3.5-5.1); Total Protein 5.6 g/dL (6.3-8.2)
[2022-09-24] MEDS: Pepcid 20 MG VIAL IV SCH ×2 (08:56→20:34)
[2022-09-24] MEDS: Compazine 10 MG/2 ML IV PRN ×2 (08:56→20:34)
[2022-09-24] MEDS: PROTONIX 40 MG IV IV SCH (08:56)
[2022-09-24] MEDS: COREG 12.5 MG PO SCH ×2 (08:57→20:33)
[2022-09-24] MEDS: Cordarone 200 MG PO SCH (08:57)
[2022-09-24] MEDS: SYNTHROID 112 MCG PO SCH (08:57)
[2022-09-24] MEDS ORDERED: XARELTO 10 MG TABLET PO SCH (10:00)
[2022-09-24] MEDS ORDERED: LIPITOR 40MG PO SCH (10:00)
--- NOTE | 2022-09-24 10:06 | PCM.NOTE ---
Date and Time: 09/24/22 1005 Subjective Assessment: still requiring compazine for nausea, no pain. no other complaints Objective Exam General Appearance: obese Neurologic Exam: alert, oriented x 3 Respiratory Exam: normal breath sounds, lungs clear, No respiratory distress Cardiovascular Exam: regular rate/rhythm, normal heart sounds Gastrointestinal/Abdomen Exam: soft, No tenderness, No mass OBJECTIVE DATA Vital Signs: Vital Signs - 24 hr Temp Pulse Resp BP Pulse Ox 09/24/22 04:00 97.0 F 62 22 168/74 93 L 09/24/22 00:00 97.0 F 73 20 138/62 96 09/23/22 20:00 97.1 F 73 21 156/63 96 09/23/22 18:40 74 18 95 09/23/22 16:11 98.9 F 70 18 148/65 91 L 09/23/22 15:50 68 18 97 09/23/22 15:45 98.9 F 70 18 148/65 91 L 09/23/22 15:07 96 09/23/22 14:45 74 17 179/65 98 09/23/22 13:47 67 20 176/65 88 L 09/23/22 12:20 67 18 183/71 95 09/23/22 12:00 69 20 183/71 94 L 09/23/22 11:04 98.3 F 67 20 179/75 95 Pain Assessment - Last Documented Pain Intensity 3 Pain Scale Used FLACC Intake and Output: Intake & Output 09/21/22 09/22/22 09/23/22 09/24/22 11:59 11:59 11:59 11:59 Intake Total 160 Output Total 100 Balance 60 Weight 123.377 kg 124.7 kg Lab Results: Lab Results-Last 24 Hours 09/23/22 09/23/22 09/23/22 Range/Units 11:41 12:21 12:21 WBC 5.2 (4.0-10.5) x10^3/uL RBC 4.52 (4.1-5.4) x10^6/uL Hgb 12.6 (12.0-16.0) g/dL Hct 41.7 (35-47) % MCV 92.3 (78-100) fL MCH 27.9 (26-32) pg MCHC 30.2 L (32-36) g/dL RDW 13.9 (11.5-14.0) % Plt Count 220 (150-450) x10^3/uL MPV 12.3 H (7.5-11.0) fL Gran % 68.9 H (36.0-66.0) % Immature Gran % (Auto) 0.6 H (0.00-0.4) % Nucleat RBC Rel Count 0.0 (0.00-0.1) % Eos # (Auto) 0.11 (0-0.5) x10^3/uL Immature Gran # (Auto) 0.03 (0.00-0.03) x10^3u/L Absolute Lymphs (auto) 0.91 L (1.0-4.6) x10^3/uL Absolute Monos (auto) 0.52 (0.0-1.3) x10^3/uL Absolute Nucleated RBC 0.00 (0.00-0.01) x10^3u/L Lymphocytes % 17.4 L (24.0-44.0) % Monocytes % 10.0 (0.0-12.0) % Eosinophils % 2.1 (0.00-5.0) % Basophils % 1.0 (0.0-0.4) % Absolute Granulocytes 3.60 (1.4-6.9) x10^3/uL Basophils # 0.05 (0-0.4) x10^3/uL Sodium (137-145) mmol/L Potassium (3.5-5.1) mmol/L Chloride (98-107) mmol/L Carbon Dioxide (22-30) mmol/L Anion Gap (5-15) MEQ/L BUN (7-17) mg/dL Creatinine (0.52-1.04) mg/dL Estimated GFR ML/MIN Glucose (74-106) mg/dL Lactic Acid 1.5 (0.4-2.0) Calcium (8.4-10.2) mg/dL Total Bilirubin (0.2-1.3) mg/dL AST (14-36) U/L ALT (0-35) U/L Alkaline Phosphatase (38-126) U/L Troponin I (0.000-0.034) ng/mL Serum Total Protein (6.3-8.2) g/dL Albumin (3.5-5.0) g/dL Prealbumin (17.6-36.0) mg/dL Amylase (30-110) U/L Lipase (23-300) U/L Urine Color Dark Yellow A (Yellow) Urine Appearance Cloudy A (Clear) Urine pH 5.0 (4.6-8.0) Ur Specific [place] 1.025 (1.005-1.030) Urine Protein 30 (Negative) Urine Glucose (UA) Negative (Negative) mg/dL Urine Ketones Trace A (Negative) Urine Blood Large A (Negative) Urine Nitrite Negative (Negative) Urine Bilirubin Moderate A (Negative) Urine Urobilinogen 1.0 A (0.2) mg/dL Ur Leukocyte Esterase Negative (Negative) U Hyaline Cast (Auto) 26-50 A (0-2) /LPF Urine Microscopic RBC 3-5 (0-5) /HPF Urine Microscopic WBC 3-5 (0-5) /HPF Ur Epithelial Cells Few (None Seen) /HPF Urine Bacteria None Seen (None Seen) /HPF Urine Culture Reflexed YES (NO) Influenza Type A Ag (NEGATIVE) Influenza Type B Ag (NEGATIVE) RSV (PCR) (Negative) SARS-CoV-2 (PCR) (NEGATIVE) 09/23/22 09/23/22 09/23/22 Range/Units 12:21 12:21 12:21 WBC (4.0-10.5) x10^3/uL RBC (4.1-5.4) x10^6/uL Hgb (12.0-16.0) g/dL Hct (35-47) % MCV (78-100) fL MCH (26-32) pg MCHC (32-36) g/dL RDW (11.5-14.0) % Plt Count (150-450) x10^3/uL MPV (7.5-11.0) fL Gran % (36.0-66.0) % Immature Gran % (Auto) (0.00-0.4) % Nucleat RBC Rel Count (0.00-0.1) % Eos # (Auto) (0-0.5) x10^3/uL Immature Gran # (Auto) (0.00-0.03) x10^3u/L Absolute Lymphs (auto) (1.0-4.6) x10^3/uL Absolute Monos (auto) (0.0-1.3) x10^3/uL Absolute Nucleated RBC (0.00-0.01) x10^3u/L Lymphocytes % (24.0-44.0) % Monocytes % (0.0-12.0) % Eosinophils % (0.00-5.0) % Basophils % (0.0-0.4) % Absolute Granulocytes (1.4-6.9) x10^3/uL Basophils # (0-0.4) x10^3/uL Sodium 135 L (137-145) mmol/L Potassium 4.3 (3.5-5.1) mmol/L Chloride 101 (98-107) mmol/L Carbon Dioxide 25 (22-30) mmol/L Anion Gap 13.3 (5-15) MEQ/L BUN 9 (7-17) mg/dL Creatinine 1.72 H (0.52-1.04) mg/dL Estimated GFR 31.6 ML/MIN Glucose 109 H (74-106) mg/dL Lactic Acid (0.4-2.0) Calcium 8.8 (8.4-10.2) mg/dL Total Bilirubin 0.80 (0.2-1.3) mg/dL AST 52 H (14-36) U/L ALT 27 (0-35) U/L Alkaline Phosphatase 120 (38-126) U/L Troponin I 0.064 H* (0.000-0.034) ng/mL Serum Total Protein 6.7 (6.3-8.2) g/dL Albumin 3.6 (3.5-5.0) g/dL Prealbumin (17.6-36.0) mg/dL Amylase 59 (30-110) U/L Lipase 182 (23-300) U/L Urine Color (Yellow) Urine Appearance (Clear) Urine pH (4.6-8.0) Ur Specific [place] (1.005-1.030) Urine Protein (Negative) Urine Glucose (UA) (Negative) mg/dL Urine Ketones (Negative) Urine Blood (Negative) Urine Nitrite (Negative) Urine Bilirubin (Negative) Urine Urobilinogen (0.2) mg/dL Ur Leukocyte Esterase (Negative) U Hyaline Cast (Auto) (0-2) /LPF Urine Microscopic RBC (0-5) /HPF Urine Microscopic WBC (0-5) /HPF Ur Epithelial Cells (None Seen) /HPF Urine Bacteria (None Seen) /HPF Urine Culture Reflexed (NO) Influenza Type A Ag NEGATIVE (NEGATIVE) Influenza Type B Ag NEGATIVE (NEGATIVE) RSV (PCR) NEGATIVE (Negative) SARS-CoV-2 (PCR) NEGATIVE (NEGATIVE) 09/23/22 09/23/22 09/23/22 Range/Units 15:57 16:26 20:37 WBC (4.0-10.5) x10^3/uL RBC (4.1-5.4) x10^6/uL Hgb (12.0-16.0) g/dL Hct (35-47) % MCV (78-100) fL MCH (26-32) pg MCHC (32-36) g/dL RDW (11.5-14.0) % Plt Count (150-450) x10^3/uL MPV (7.5-11.0) fL Gran % (36.0-66.0) % Immature Gran % (Auto) (0.00-0.4) % Nucleat RBC Rel Count (0.00-0.1) % Eos # (Auto) (0-0.5) x10^3/uL Immature Gran # (Auto) (0.00-0.03) x10^3u/L Absolute Lymphs (auto) (1.0-4.6) x10^3/uL Absolute Monos (auto) (0.0-1.3) x10^3/uL Absolute Nucleated RBC (0.00-0.01) x10^3u/L Lymphocytes % (24.0-44.0) % Monocytes % (0.0-12.0) % Eosinophils % (0.00-5.0) % Basophils % (0.0-0.4) % Absolute Granulocytes (1.4-6.9) x10^3/uL Basophils # (0-0.4) x10^3/uL Sodium (137-145) mmol/L Potassium (3.5-5.1) mmol/L Chloride (98-107) mmol/L Carbon Dioxide (22-30) mmol/L Anion Gap (5-15) MEQ/L BUN (7-17) mg/dL Creatinine (0.52-1.04) mg/dL Estimated GFR ML/MIN Glucose (74-106) mg/dL Lactic Acid (0.4-2.0) Calcium (8.4-10.2) mg/dL Total Bilirubin (0.2-1.3) mg/dL AST (14-36) U/L ALT (0-35) U/L Alkaline Phosphatase (38-126) U/L Troponin I 0.052 H* 0.050 H* (0.000-0.034) ng/mL Serum Total Protein (6.3-8.2) g/dL Albumin (3.5-5.0) g/dL Prealbumin 13.06 L (17.6-36.0) mg/dL Amylase (30-110) U/L Lipase (23-300) U/L Urine Color (Yellow) Urine Appearance (Clear) Urine pH (4.6-8.0) Ur Specific [place] (1.005-1.030) Urine Protein (Negative) Urine Glucose (UA) (Negative) mg/dL Urine Ketones (Negative) Urine Blood (Negative) Urine Nitrite (Negative) Urine Bilirubin (Negative) Urine Urobilinogen (0.2) mg/dL Ur Leukocyte Esterase (Negative) U Hyaline Cast (Auto) (0-2) /LPF Urine Microscopic RBC (0-5) /HPF Urine Microscopic WBC (0-5) /HPF Ur Epithelial Cells (None Seen) /HPF Urine Bacteria (None Seen) /HPF Urine Culture Reflexed (NO) Influenza Type A Ag (NEGATIVE) Influenza Type B Ag (NEGATIVE) RSV (PCR) (Negative) SARS-CoV-2 (PCR) (NEGATIVE) 09/24/22 09/24/22 09/24/22 Range/Units 05:42 05:42 05:49 WBC 4.6 (4.0-10.5) x10^3/uL RBC 3.90 L (4.1-5.4) x10^6/uL Hgb 10.8 L (12.0-16.0) g/dL Hct 36.0 (35-47) % MCV 92.3 (78-100) fL MCH 27.7 (26-32) pg MCHC 30.0 L (32-36) g/dL RDW 14.4 H (11.5-14.0) % Plt Count 204 (150-450) x10^3/uL MPV 12.4 H (7.5-11.0) fL Gran % 65.7 (36.0-66.0) % Immature Gran % (Auto) 0.4 (0.00-0.4) % Nucleat RBC Rel Count 0.0 (0.00-0.1) % Eos # (Auto) 0.13 (0-0.5) x10^3/uL Immature Gran # (Auto) 0.02 (0.00-0.03) x10^3u/L Absolute Lymphs (auto) 0.80 L (1.0-4.6) x10^3/uL Absolute Monos (auto) 0.58 (0.0-1.3) x10^3/uL Absolute Nucleated RBC 0.00 (0.00-0.01) x10^3u/L Lymphocytes % 17.5 L (24.0-44.0) % Monocytes % 12.7 H (0.0-12.0) % Eosinophils % 2.8 (0.00-5.0) % Basophils % 0.9 (0.0-0.4) % Absolute Granulocytes 3.00 (1.4-6.9) x10^3/uL Basophils # 0.04 (0-0.4) x10^3/uL Sodium 137 (137-145) mmol/L Potassium 3.8 (3.5-5.1) mmol/L Chloride 108 H (98-107) mmol/L Carbon Dioxide 25 (22-30) mmol/L Anion Gap 8.1 (5-15) MEQ/L BUN 8 (7-17) mg/dL Creatinine 1.70 H (0.52-1.04) mg/dL Estimated GFR 32.1 ML/MIN Glucose 81 (74-106) mg/dL Lactic Acid 0.6 (0.4-2.0) Calcium 7.7 L (8.4-10.2) mg/dL Total Bilirubin 0.60 (0.2-1.3) mg/dL AST 45 H (14-36) U/L ALT 22 (0-35) U/L Alkaline Phosphatase 94 (38-126) U/L Troponin I (0.000-0.034) ng/mL Serum Total Protein 5.6 L (6.3-8.2) g/dL Albumin 2.7 L (3.5-5.0) g/dL Prealbumin (17.6-36.0) mg/dL Amylase (30-110) U/L Lipase (23-300) U/L Urine Color (Yellow) Urine Appearance (Clear) Urine pH (4.6-8.0) Ur Specific [place] (1.005-1.030) Urine Protein (Negative) Urine Glucose (UA) (Negative) mg/dL Urine Ketones (Negative) Urine Blood (Negative) Urine Nitrite (Negative) Urine Bilirubin (Negative) Urine Urobilinogen (0.2) mg/dL Ur Leukocyte Esterase (Negative) U Hyaline Cast (Auto) (0-2) /LPF Urine Microscopic RBC (0-5) /HPF Urine Microscopic WBC (0-5) /HPF Ur Epithelial Cells (None Seen) /HPF Urine Bacteria (None Seen) /HPF Urine Culture Reflexed (NO) Influenza Type A Ag (NEGATIVE) Influenza Type B Ag (NEGATIVE) RSV (PCR) (Negative) SARS-CoV-2 (PCR) (NEGATIVE) Assessment/Plan (1) Intractable vomiting with nausea Current Visit: Yes Status: Acute Assessment & Plan: continue iv fluids and antiemetic, advance diet Code(s): R11.2 - NAUSEA WITH VOMITING, UNSPECIFIED (2) CRD (chronic renal disease) Current Visit: Yes Status: Acute Code(s): N18.9 - CHRONIC KIDNEY DISEASE, UNSPECIFIED (3) Elevated troponin Current Visit: Yes Status: Acute Code(s): R77.8 - OTHER SPECIFIED ABNORMALITIES OF PLASMA PROTEINS
[2022-09-24] MEDS: XARELTO 10 MG TABLET PO SCH (18:39)
[2022-09-24] MEDS: XANAX 1 MG PO PRN (20:34)
[2022-09-25 05:53] LABS: Absolute Neutrophil Ct (ANC) 2.74 x10^3/uL (1.4-6.9); BASOPHIL % 1.1 % (0.0-0.4); Basophil (Absolute #) 0.05 x10^3/uL (0-0.4); Eosinophil % 3.6 % (0.00-5.0); Eosinophil (Absolute #) 0.16 x10^3/uL (0-0.5); Hematocrit 33.6 % (35-47); Hemoglobin 9.9 g/dL (12.0-16.0); IMMATURE GRAN # 0.01 x10^3u/L (0.00-0.03); IMMATURE GRAN % 0.2 % (0.00-0.4); Lymphocyte (Absolute #) 1.03 x10^3/uL (1.0-4.6); Lymphocytes % 23.1 % (24.0-44.0); Mean Cell Volume 93.3 fL (78-100); Mean Corpuscular Hemoglobin 27.5 pg (26-32); Mean Corpuscular Hgb Concent. 29.5 g/dL (32-36); Mean Platelet Volume 12.9 fL (7.5-11.0); Monocyte (Absolute #) 0.47 x10^3/uL (0.0-1.3); Monocytes % 10.5 % (0.0-12.0); Neutrophil % 61.5 % (36.0-66.0); Platelet Count 185 x10^3/uL (150-450); Red Cell Distribution Width 14.1 % (11.5-14.0); White Blood Count 4.5 x10^3/uL (4.0-10.5)
[2022-09-25 06:16] LABS: ALBUMIN 2.3 g/dL (3.5-5.0); ANION GAP 7.3 MEQ/L (5-15); BILIRUBIN,TOTAL 0.5 mg/dL (0.2-1.3); Calcium 7.7 mg/dL (8.4-10.2); Creatinine 1 1.65 mg/dL (0.52-1.04); EST GLOMERULAR FILTRATION RATE 33.2 ML/MIN; MAGNESIUM 1.6 mg/dL (1.6-2.3); Potassium 3.7 mmol/L (3.5-5.1); Total Protein 4.9 g/dL (6.3-8.2)
[2022-09-25] MEDS ORDERED: NORCO 5/325 MG PO PRN (07:30)
[2022-09-25] MEDS: SYNTHROID 112 MCG PO SCH (08:01)
[2022-09-25] MEDS: Pepcid 20 MG VIAL IV SCH (09:56)
[2022-09-25] MEDS: COREG 12.5 MG PO SCH (09:56)
[2022-09-25] MEDS: Cordarone 200 MG PO SCH (09:56)
[2022-09-25] MEDS: PROTONIX 40 MG IV IV SCH (09:56)
[2022-09-25 11:58] VITALS: BP 165/72; PULSE 59; O2SAT 95
--- NOTE | 2022-09-25 22:19 | PCM.DS ---
Discharge Summary Date of Admission: 09/23/22 15:27 Date of Discharge: 09/25/22 Admitting Physician: ANA TAM Primary Care Provider: CANDICE ROCKWELL DO Allergies Allergies lorazepam Adverse Reaction (Intermediate, Verified 09/23/22 11:04) "made me weird" [facility] Summary - Hospital Course Hospital Course: Patient is a 67 yr old female with CKD admitted through ER for intractable emesis and volume depletion. Patient has tolerated bland diet and will be discharged home with referral to Dr Kate hargrove for EGD. Rx compazine for symptomatic relief. Texture Artist Dr Cheema will follow. - Vitals & Intake/Output Vital Signs: Vital Signs Temperature 98.5 F 09/25/22 11:56 Pulse Rate 59 L 09/25/22 11:56 Respiratory Rate 16 09/25/22 11:56 Blood Pressure 165/72 09/25/22 11:56 O2 Sat by Pulse Oximetry 95 09/25/22 11:56 Intake & Output: Intake & Output 09/23/22 09/24/22 09/25/22 09/26/22 11:59 11:59 11:59 11:59 Intake Total 520 2524 360 Output Total 250 300 Balance 270 2224 360 Weight 123.377 kg 60 kg 60.2 kg - Lab Result Diagrams: 09/25/22 04:38 09/25/22 04:38 Lab Results-Last 24 Hrs: Lab Results-Last 24 Hours 09/25/22 09/25/22 09/25/22 Range/Units 04:38 04:38 04:38 WBC 4.5 (4.0-10.5) x10^3/uL RBC 3.60 L (4.1-5.4) x10^6/uL Hgb 9.9 L (12.0-16.0) g/dL Hct 33.6 L (35-47) % MCV 93.3 (78-100) fL MCH 27.5 (26-32) pg MCHC 29.5 L (32-36) g/dL RDW 14.1 H (11.5-14.0) % Plt Count 185 (150-450) x10^3/uL MPV 12.9 H (7.5-11.0) fL Gran % 61.5 (36.0-66.0) % Immature Gran % (Auto) 0.2 (0.00-0.4) % Nucleat RBC Rel Count 0.0 (0.00-0.1) % Eos # (Auto) 0.16 (0-0.5) x10^3/uL Immature Gran # (Auto) 0.01 (0.00-0.03) x10^3u/L Absolute Lymphs (auto) 1.03 (1.0-4.6) x10^3/uL Absolute Monos (auto) 0.47 (0.0-1.3) x10^3/uL Absolute Nucleated RBC 0.00 (0.00-0.01) x10^3u/L Lymphocytes % 23.1 L (24.0-44.0) % Monocytes % 10.5 (0.0-12.0) % Eosinophils % 3.6 (0.00-5.0) % Basophils % 1.1 (0.0-0.4) % Absolute Granulocytes 2.74 (1.4-6.9) x10^3/uL Basophils # 0.05 (0-0.4) x10^3/uL Sodium 135 L (137-145) mmol/L Potassium 3.7 (3.5-5.1) mmol/L Chloride 109 H (98-107) mmol/L Carbon Dioxide 22 (22-30) mmol/L Anion Gap 7.3 (5-15) MEQ/L BUN 9 (7-17) mg/dL Creatinine 1.65 H (0.52-1.04) mg/dL Estimated GFR 33.2 ML/MIN Glucose 95 (74-106) mg/dL Calcium 7.7 L (8.4-10.2) mg/dL Magnesium 1.6 (1.6-2.3) mg/dL Total Bilirubin 0.50 (0.2-1.3) mg/dL AST 42 H (14-36) U/L ALT 23 (0-35) U/L Alkaline Phosphatase 87 (38-126) U/L Troponin I 0.049 H* (0.000-0.034) ng/mL Serum Total Protein 4.9 L (6.3-8.2) g/dL Albumin 2.3 L (3.5-5.0) g/dL Micro Results-Entire Visit: Microbiology 09/23/22 11:41 Urine Culture - Final Catherized <10K NORMAL SKIN JR PROBABLE SKIN CONTAMINANT - Procedures and Test Procedures and Tests throughout Hospitalization: Therapy Orders & Screens 09/23/22 16:13 Respiratory Therapy Assessment DAILY Comment: Diagnosis: Intractable vomiting, elevated troponin 09/23/22 16:16 Oxygen Nasal Cannula 2 lpm Comment: Diagnosis: Intractable vomiting, elevated troponin 09/23/22 16:17 BiPap/CPAP ROUTINE Comment: Home CPAP per home use Diagnosis: Intractable vomiting, elevated troponin 09/23/22 16:26 OT Screen per Nursing Assess ONCE Comment: Protocol Order Physician Instructions: Greater than 3 points order OT Admission Screening Reason For Exam: Triggered on Admission Diagnosis: Intractable vomiting, elevated troponin Open Wound/Cellutlitis/Pressure Ulcers: No Acute Fx/ORIF/Change in wt bearing status: No Severe MUSCULOSKELETAL pain: No ADL Dysfunction: Yes Acute CVA w/Hemiparesis/Hemiplegia: No Decreased Functional Mobility/Strength: Yes Sprain/Strain: No Acute Post-op Mobility Dysfunction: No Total Points: 4 PT Screen per Nursing Assess ONCE Comment: Protocol Order Physician Instructions: Greater than 3 points order PT Admission Screenin Reason For Exam: Triggered on Admission Diagnosis: Intractable vomiting, elevated troponin Open Wound/Cellutlitis/Pressure Ulcers: No Acute Fx/ORIF/Change in wt bearing status: No Severe MUSCULOSKELETAL pain: No ADL Dysfunction: Yes Acute CVA w/Hemiparesis/Hemiplegia: No Decreased Functional Mobility/Strength: Yes Sprain/Strain: No Acute Post-op Mobility Dysfunction: No Total Points: 4 RT Screen per Nursing Assess ONCE Comment: Protocol Order Physician Instructions: Greater than 3 points order RT Admission Screen Reason For Exam: Triggered on Admission Diagnosis: Intractable vomiting, elevated troponin Diagnosis: Intractable vomiting, elevated troponin Pneumonia: No Home O2: No Asthma: No CHF: Yes Home CPAP/BIPAP: Yes Home Nebs/MDI: No Total Points: 8 Discharge Exam General Appearance: no apparent distress Neurologic Exam: alert, oriented x 3 Respiratory Exam: normal breath sounds Cardiovascular Exam: regular rate/rhythm Gastrointestinal/Abdomen Exam: soft (nontender), normal bowel sounds Extremity Exam: other (no pitting edema) Final Diagnosis/Problem List - Final Discharge Diagnosis/Problem (1) Vomiting Status: Resolved Code(s): R11.10 - VOMITING, UNSPECIFIED (2) Dehydration Status: Resolved Code(s): E86.0 - DEHYDRATION (3) CRD (chronic renal disease) Status: Chronic Assessment & Plan: 3 b Code(s): N18.9 - CHRONIC KIDNEY DISEASE, UNSPECIFIED (4) Elevated troponin level not due myocardial infarction Status: Chronic Code(s): R77.8 - OTHER SPECIFIED ABNORMALITIES OF PLASMA PROTEINS - Discharge Disposition: HOME HEALTH SERVICE Condition: Good Prescriptions: New Prochlorperazine Maleate 5 mg* [Compazine 5 MG] 5 mg PO BID PRN 15 Days #30 tablet PRN Reason: Nausea Discontinued Ondansetron [Ondansetron Odt ] 1 tab PO Q6H PRN PRN PRN Reason: Nausea No Action Rivaroxaban [Xarelto] 15 mg PO DAILY Atorvastatin Calcium 80 mg PO HS Ezetimibe 10 mg [Zetia 10 MG] 10 mg PO HS Cholecalciferol (Vitamin D3) [D3-5000] 125 mcg PO DAILY Potassium Chloride Tab* [Klor Con] 20 meq PO TID Levothyroxine Sodium 112 Mcg [Synthroid 112 Mcg] 112 mcg PO DAILY Bumetanide 2 mg PO DAILY Amiodarone HCl 200 mg PO DAILY Carvedilol 12.5 mg [Coreg 12.5 mg] 12.5 mg PO BID ALPRAZolam [Alprazolam] 1 mg PO BIDPRN PRN PRN Reason: Anxiety Instructions: Nausea and Vomiting, Adult (DC) Additional Instructions: Follow up with at [facility] on 09/28/22 @ 3:40p.m. Follow up with: JOSELUIS RAE [ACTIVE STAFF] - 09/28/22 3:40 pm (at [place] office) CANDICE ROCKWELL DO [Primary Care Provider] - 10/03/22 9:30 am
== END 2022-09-25 14:25 | disposition home health service (06) ==
LOC: ED 10:59 → MED SURG 15:27
PROVIDERS: ADMIT Family Medicine; ATTEND Family Medicine
DX: R11.10 Vomiting, unspecified (principal); E86.0 Dehydration; N18.9 Chronic kidney disease, unspecified; R77.8 Other specified abnormalities of plasma proteins; R19.7 Diarrhea, unspecified; Z79.899 Other long term (current) drug therapy; Z20.828 Contact with and (suspected) exposure to other viral communicable diseases; Z79.01 Long term (current) use of anticoagulants
CPT/HCPCS: 0241U; 36415; 80053; 81001; 82150; 83605; 83690; 83735; 84134; 84484; 85025; 87086; 93005; 94762; 96360; 96372; 96374; 96375; 99285; 93268; J3360; A9270-GY; G0378

== ENCOUNTER 2022-10-06 17:43 | Inpatient (IN) | payer MEDICARE, OTHER ==
[2022-10-06 18:25] LABS: Absolute Neutrophil Ct (ANC) 4.07 x10^3/uL (1.4-6.9); BASOPHIL % 0.3 % (0.0-0.4); Basophil (Absolute #) 0.02 x10^3/uL (0-0.4); Eosinophil % 2.5 % (0.00-5.0); Eosinophil (Absolute #) 0.15 x10^3/uL (0-0.5); Hematocrit 36.8 % (35-47); Hemoglobin 11.1 g/dL (12.0-16.0); IMMATURE GRAN # 0.03 x10^3u/L (0.00-0.03); IMMATURE GRAN % 0.5 % (0.00-0.4); Lymphocyte (Absolute #) 0.93 x10^3/uL (1.0-4.6); Lymphocytes % 15.6 % (24.0-44.0); Mean Corpuscular Hemoglobin 27.1 pg (26-32); Mean Corpuscular Hgb Concent. 30.2 g/dL (32-36); Mean Platelet Volume 11.2 fL (7.5-11.0); Monocyte (Absolute #) 0.77 x10^3/uL (0.0-1.3); Monocytes % 12.9 % (0.0-12.0); Neutrophil % 68.2 % (36.0-66.0); Platelet Count 192 x10^3/uL (150-450); Red Blood Count 4.09 x10^6/uL (4.1-5.4); Red Cell Distribution Width 14.6 % (11.5-14.0)
[2022-10-06 18:42] LABS: INR 1.2 (0.8-3.0); PROTIME 12.5 SECONDS (9.4-12.5); PTT 31.3 SECONDS (25.1-36.5)
[2022-10-06 18:49] LABS: ANION GAP 12.8 MEQ/L (5-15); BILIRUBIN,TOTAL 0.9 mg/dL (0.2-1.3); Calcium 8.1 mg/dL (8.4-10.2); Creatinine 1 1.1 mg/dL (0.52-1.04); Potassium 3.5 mmol/L (3.5-5.1); Total Protein 6.2 g/dL (6.3-8.2)
--- NOTE | 2022-10-06 18:53 | ERPHSYRPT ---
- History of Present Illness Source: patient, EMS Exam Limitations: other (Poor historian) Patient Subjective Stated Complaint: Pt states "I had a scope on sunday and have not had much of my medicine because I keep vomiting. I am so weak now I can't walk." Triage Nursing Assessment: Pt presented alert and oriented X 3, skin pwd. Pt able to speak in clear full sentences. Pt in no apparent respiratory distress. pt has pitting edema bilat lower extremities. Physician History: 67 yo wf w generalized weakness over the last week. Pt is morbidly obese and usually ambulates wo a walker or cane but has been recently been using a walker. She has had nausea/vomiting x4 months of unknown etiology and has had diarrhea today. Pt denies hematemesis/melena/hematochezia/dysuria/hematuria/abdominal pain/chest pain/fever/cough/coryza/dyspnea/focal weakness. Timing/Duration: other (1 week) Severity: moderate Modifying Factors: Improves With: nothing Associated Symptoms: nausea, vomiting, weakness, No abdominal pain, No shortness of breath, No heartburn, No diaphoresis, No cough, No chills, No chest pain, No fever, No headaches, No loss of appetite, No malaise, No rash, No syncope, No seizure Allergies/Adverse Reactions: lorazepam Adverse Reaction (Intermediate, Verified 09/23/22 11:04) "made me weird" Sleep walking Home Medications: Rivaroxaban [Xarelto] 15 mg PO DAILY 05/21/18 [History] Atorvastatin Calcium 80 mg PO HS 07/30/19 [History] ALPRAZolam [Alprazolam] 1 mg PO BIDPRN PRN 07/20/22 [History] Amiodarone HCl 200 mg PO DAILY 07/20/22 [History] Bumetanide 2 mg PO DAILY 07/20/22 [History] Carvedilol 12.5 mg [Coreg 12.5 mg] 12.5 mg PO BID 07/20/22 [History] Cholecalciferol (Vitamin D3) [D3-5000] 125 mcg PO DAILY 07/20/22 [History] Ezetimibe 10 mg [Zetia 10 MG] 10 mg PO HS 07/20/22 [History] Levothyroxine Sodium 112 Mcg [Synthroid 112 Mcg] 112 mcg PO DAILY 07/20/22 [History] Potassium Chloride Tab* [Klor Con] 20 meq PO TID 07/20/22 [History] Hx Tetanus, Diphtheria Vaccination/Date Given: Yes Hx Influenza Vaccination/Date Given: Yes Hx Pneumococcal Vaccination/Date Given: No Immunizations Up to Date: Yes Travel Risk - International Travel Have you traveled outside of the country in past 3 weeks: No - Coronavirus Screening Are you exhibiting any of the following symptoms?: No Close contact with a COVID-19 positive Pt in past 14-21 Days: No - Vaccine Status Have you recieved a Covid-19 vaccination: Yes 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 - Review of Systems Constitutional: No Symptoms, Lethargy, Malaise, Weakness Eyes: No Symptoms Ears, Nose, & Throat: No Symptoms Respiratory: No Symptoms Cardiac: No Symptoms Abdominal/Gastrointestinal: No Symptoms, Nausea, Vomiting, Diarrhea Genitourinary Symptoms: No Symptoms Musculoskeletal: No Symptoms Skin: No Symptoms Neurological: No Symptoms Psychological: No Symptoms Endocrine: No Symptoms Hematologic/Lymphatic: No Symptoms Immunological/Allergic: No Symptoms - Past Medical History Pertinent Past Medical History: Yes Cardiac History: Arrhythmia, High Cholesterol, Hypertension Respiratory History: COPD, Emphysema Endocrine Medical History: Hypothyroidism Musculoskeletal History: No Pertinent History GI Medical History: No Pertinent History History: No Pertinent History Psycho-Social History: Anxiety Female Reproductive Disorders: No Pertinent History Other Medical History: CARDIOMYOPATHY, Gout, stage IV renal - Past Surgical History Past Surgical History: Yes Neuro Surgical History: No Pertinent History Cardiac: Internal Defibrillator Respiratory: No Pertinent History Gastrointestinal: Cholecystectomy Musculoskeletal: Orthopedic Surgery Other Surgical History: ROTATOR CUFF, L FOOT SX - Social History Smoking Status: Former smoker Exposure to second hand smoke: No Drug Use: none Patient Lives Alone: No - Nursing Vital Signs Nursing Vital Signs: Initial Vital Signs Temperature 97.6 F 10/06/22 17:44 Pulse Rate 74 10/06/22 17:44 Respiratory Rate 22 10/06/22 17:44 Blood Pressure 181/61 10/06/22 17:44 O2 Sat by Pulse Oximetry 95 10/06/22 17:44 Pain Scale Pain Intensity 0 Hypertesion - Physical Exam General Appearance: no apparent distress Eye Exam: PERRL/EOMI, eyes nml inspection Ears, Nose, Throat Exam: normal ENT inspection, TMs normal, pharynx normal, dry mucous membranes Neck Exam: normal inspection, non-tender, supple, full range of motion, No meningismus, No mass, No Brudzinski, No Kernig's, No carotid bruit Respiratory Exam: normal breath sounds, lungs clear, airway intact, No respiratory distress Cardiovascular Exam: regular rate/rhythm, murmur (2/6 MOI) Gastrointestinal/Abdomen Exam: soft, normal bowel sounds, No tenderness Back Exam: normal inspection, normal range of motion, No CVA tenderness Extremity Exam: normal inspection, normal range of motion Neurologic Exam: alert, oriented x 3, cooperative, 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-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 nml as tested, n ormal mood/affect, sensation nml Skin Exam: normal color, warm, dry Lymphatic Exam: No adenopathy SpO2 Interpretation: normal SpO2: 95 O2 Delivery: Room Air - Course Nursing assessment & vital signs reviewed: Yes EKG Interpreted by Me: RATE (NSR/Rate80/Prolonged QT-QTc/IVCD/Diffuse Twave abnormality) - Radiology Exams Chest X-ray Interpretation: Interpreted by me (CXR/Cardiomegaly/AICD-pacer/Nothing acute) Ordered Tests: Active Orders 24 hr Category Date Time Status Bedrest ROUTINE Activity 10/06/22 21:30 Active Code Status Order ROUTINE Care 10/06/22 21:29 Active EKG-ER Only STAT Care 10/06/22 18:05 Active IV Care Q6H Care 10/06/22 21:29 Active Intake and Output Q12H Care 10/06/22 21:[address] in Observation ROUTINE Care 10/06/22 21:29 Active Vital Signs Q4H Care 10/06/22 21:29 Active Clear Liquid Diet 10/07/22 Breakfast Active CHEST 1 VIEW (PORTABLE) Stat Exams 10/06/22 18:06 Taken CBC W DIFF AM.LAB Lab 10/07/22 04:00 Ordered CBC W DIFF Stat Lab 10/06/22 18:25 Completed CMP AM.LAB Lab 10/07/22 04:00 Ordered CMP Stat Lab 10/06/22 18:25 Completed Lactic Acid Stat Lab 10/06/22 18:19 Completed NT PRO BNP Stat Lab 10/06/22 18:25 Completed PROTIME WITH INR Stat Lab 10/06/22 18:25 Completed PTT Stat Lab 10/06/22 18:25 Completed TROPONIN Q4H Lab 10/06/22 18:25 Completed TROPONIN Q4H Lab 10/06/22 20:25 Completed TROPONIN Q4H Lab 10/07/22 02:15 Ordered UA W/RFX UR CULTURE Stat Lab 10/06/22 19:40 Completed Transfer Order Routine Transfer 10/06/22 Ordered Medication Summary Generic Name Dose Route Start Last Admin Trade Name Freq PRN Reason Stop Dose Admin Sodium Chloride 1,000 mls @ 100 mls/hr 10/06/22 21:30 Sodium Chloride 0.9% 1000 Ml IV 11/05/22 21:29 .Q10H RODRIGO Pantoprazole Sodium 40 mg 10/07/22 10:00 Pantoprazole 40 Mg Vial IV 11/06/22 09:59 Q24H10 RODRIGO Lab/Rad Data: Laboratory Result Diagrams 10/06/22 18:25 10/06/22 18:25 Laboratory Results 10/06/22 10/06/22 10/06/22 Range/Units 20:25 19:40 18:25 WBC (4.0-10.5) x10^3/uL RBC (4.1-5.4) x10^6/uL Hgb (12.0-16.0) g/dL Hct (35-47) % MCV (78-100) fL MCH (26-32) pg MCHC (32-36) g/dL RDW (11.5-14.0) % Plt Count (150-450) x10^3/uL MPV (7.5-11.0) fL Gran % (36.0-66.0) % Immature Gran % (Auto) (0.00-0.4) % Nucleat RBC Rel Count (0.00-0.1) % Eos # (Auto) (0-0.5) x10^3/uL Immature Gran # (Auto) (0.00-0.03) x10^3u/L Absolute Lymphs (auto) (1.0-4.6) x10^3/uL Absolute Monos (auto) (0.0-1.3) x10^3/uL Absolute Nucleated RBC (0.00-0.01) x10^3u/L Lymphocytes % (24.0-44.0) % Monocytes % (0.0-12.0) % Eosinophils % (0.00-5.0) % Basophils % (0.0-0.4) % Absolute Granulocytes (1.4-6.9) x10^3/uL Basophils # (0-0.4) x10^3/uL PT (9.4-12.5) SECONDS INR (0.8-3.0) APTT (25.1-36.5) SECONDS Sodium (137-145) mmol/L Potassium (3.5-5.1) mmol/L Chloride (98-107) mmol/L Carbon Dioxide (22-30) mmol/L Anion Gap (5-15) MEQ/L BUN (7-17) mg/dL Creatinine (0.52-1.04) mg/dL Estimated GFR ML/MIN Glucose (74-106) mg/dL Lactic Acid (0.4-2.0) Calcium (8.4-10.2) mg/dL Total Bilirubin (0.2-1.3) mg/dL AST (14-36) U/L ALT (0-35) U/L Alkaline Phosphatase (38-126) U/L Troponin I 0.076 H* (0.000-0.034) ng/mL NT-Pro-B Natriuret Pep (0-900) pg/mL Serum Total Protein (6.3-8.2) g/dL Albumin (3.5-5.0) g/dL Urine Color Dark Yellow A (Yellow) Urine Appearance Clear (Clear) Urine pH 5.5 (4.6-8.0) Ur Specific Minto 1.020 (1.005-1.030) Urine Protein 30 (Negative) Urine Glucose (UA) Negative (Negative) mg/dL Urine Ketones 15 A (Negative) Urine Blood Negative (Negative) Urine Nitrite Negative (Negative) Urine Bilirubin Negative (Negative) Urine Urobilinogen 1.0 A (0.2) mg/dL Ur Leukocyte Esterase Negative (Negative) U Hyaline Cast (Auto) 0-2 (0-2) /LPF Urine Microscopic RBC 0-2 (0-5) /HPF Urine Microscopic WBC 0-2 (0-5) /HPF Ur Epithelial Cells Rare (None Seen) /HPF Urine Bacteria Rare A (None Seen) /HPF Urine Culture Reflexed NO (NO) Influenza Type A Ag NEGATIVE (NEGATIVE) Influenza Type B Ag NEGATIVE (NEGATIVE) RSV (PCR) NEGATIVE (Negative) SARS-CoV-2 (PCR) NEGATIVE (NEGATIVE) 10/06/22 10/06/22 10/06/22 Range/Units 18:25 18:25 18:25 WBC (4.0-10.5) x10^3/uL RBC (4.1-5.4) x10^6/uL Hgb (12.0-16.0) g/dL Hct (35-47) % MCV (78-100) fL MCH (26-32) pg MCHC (32-36) g/dL RDW (11.5-14.0) % Plt Count (150-450) x10^3/uL MPV (7.5-11.0) fL Gran % (36.0-66.0) % Immature Gran % (Auto) (0.00-0.4) % Nucleat RBC Rel Count (0.00-0.1) % Eos # (Auto) (0-0.5) x10^3/uL Immature Gran # (Auto) (0.00-0.03) x10^3u/L Absolute Lymphs (auto) (1.0-4.6) x10^3/uL Absolute Monos (auto) (0.0-1.3) x10^3/uL Absolute Nucleated RBC (0.00-0.01) x10^3u/L Lymphocytes % (24.0-44.0) % Monocytes % (0.0-12.0) % Eosinophils % (0.00-5.0) % Basophils % (0.0-0.4) % Absolute Granulocytes (1.4-6.9) x10^3/uL Basophils # (0-0.4) x10^3/uL PT 12.5 (9.4-12.5) SECONDS INR 1.20 (0.8-3.0) APTT 31.3 (25.1-36.5) SECONDS Sodium 134 L (137-145) mmol/L Potassium 3.5 (3.5-5.1) mmol/L Chloride 100 (98-107) mmol/L Carbon Dioxide 24 (22-30) mmol/L Anion Gap 12.8 (5-15) MEQ/L BUN 6 L (7-17) mg/dL Creatinine 1.10 H (0.52-1.04) mg/dL Estimated GFR 53.0 ML/MIN Glucose 83 (74-106) mg/dL Lactic Acid (0.4-2.0) Calcium 8.1 L (8.4-10.2) mg/dL Total Bilirubin 0.90 (0.2-1.3) mg/dL AST 66 H (14-36) U/L ALT 31 (0-35) U/L Alkaline Phosphatase 100 (38-126) U/L Troponin I 0.080 H* (0.000-0.034) ng/mL NT-Pro-B Natriuret Pep 4230 H (0-900) pg/mL Serum Total Protein 6.2 L (6.3-8.2) g/dL Albumin 3.0 L (3.5-5.0) g/dL Urine Color (Yellow) Urine Appearance (Clear) Urine pH (4.6-8.0) Ur Specific Minto (1.005-1.030) Urine Protein (Negative) Urine Glucose (UA) (Negative) mg/dL Urine Ketones (Negative) Urine Blood (Negative) Urine Nitrite (Negative) Urine Bilirubin (Negative) Urine Urobilinogen (0.2) mg/dL Ur Leukocyte Esterase (Negative) U Hyaline Cast (Auto) (0-2) /LPF Urine Microscopic RBC (0-5) /HPF Urine Microscopic WBC (0-5) /HPF Ur Epithelial Cells (None Seen) /HPF Urine Bacteria (None Seen) /HPF Urine Culture Reflexed (NO) Influenza Type A Ag (NEGATIVE) Influenza Type B Ag (NEGATIVE) RSV (PCR) (Negative) SARS-CoV-2 (PCR) (NEGATIVE) 10/06/22 10/06/22 Range/Units 18:25 18:19 WBC 6.0 (4.0-10.5) x10^3/uL RBC 4.09 L (4.1-5.4) x10^6/uL Hgb 11.1 L (12.0-16.0) g/dL Hct 36.8 (35-47) % MCV 90.0 (78-100) fL MCH 27.1 (26-32) pg MCHC 30.2 L (32-36) g/dL RDW 14.6 H (11.5-14.0) % Plt Count 192 (150-450) x10^3/uL MPV 11.2 H (7.5-11.0) fL Gran % 68.2 H (36.0-66.0) % Immature Gran % (Auto) 0.5 H (0.00-0.4) % Nucleat RBC Rel Count 0.0 (0.00-0.1) % Eos # (Auto) 0.15 (0-0.5) x10^3/uL Immature Gran # (Auto) 0.03 (0.00-0.03) x10^3u/L Absolute Lymphs (auto) 0.93 L (1.0-4.6) x10^3/uL Absolute Monos (auto) 0.77 (0.0-1.3) x10^3/uL Absolute Nucleated RBC 0.00 (0.00-0.01) x10^3u/L Lymphocytes % 15.6 L (24.0-44.0) % Monocytes % 12.9 H (0.0-12.0) % Eosinophils % 2.5 (0.00-5.0) % Basophils % 0.3 (0.0-0.4) % Absolute Granulocytes 4.07 (1.4-6.9) x10^3/uL Basophils # 0.02 (0-0.4) x10^3/uL PT (9.4-12.5) SECONDS INR (0.8-3.0) APTT (25.1-36.5) SECONDS Sodium (137-145) mmol/L Potassium (3.5-5.1) mmol/L Chloride (98-107) mmol/L Carbon Dioxide (22-30) mmol/L Anion Gap (5-15) MEQ/L BUN (7-17) mg/dL Creatinine (0.52-1.04) mg/dL Estimated GFR ML/MIN Glucose (74-106) mg/dL Lactic Acid 1.0 (0.4-2.0) Calcium (8.4-10.2) mg/dL Total Bilirubin (0.2-1.3) mg/dL AST (14-36) U/L ALT (0-35) U/L Alkaline Phosphatase (38-126) U/L Troponin I (0.000-0.034) ng/mL NT-Pro-B Natriuret Pep (0-900) pg/mL Serum Total Protein (6.3-8.2) g/dL Albumin (3.5-5.0) g/dL Urine Color (Yellow) Urine Appearance (Clear) Urine pH (4.6-8.0) Ur Specific Minto (1.005-1.030) Urine Protein (Negative) Urine Glucose (UA) (Negative) mg/dL Urine Ketones (Negative) Urine Blood (Negative) Urine Nitrite (Negative) Urine Bilirubin (Negative) Urine Urobilinogen (0.2) mg/dL Ur Leukocyte Esterase (Negative) U Hyaline Cast (Auto) (0-2) /LPF Urine Microscopic RBC (0-5) /HPF Urine Microscopic WBC (0-5) /HPF Ur Epithelial Cells (None Seen) /HPF Urine Bacteria (None Seen) /HPF Urine Culture Reflexed (NO) Influenza Type A Ag (NEGATIVE) Influenza Type B Ag (NEGATIVE) RSV (PCR) (Negative) SARS-CoV-2 (PCR) (NEGATIVE) - Progress Progress Note: 10/06/22 21:[address] Malhotra Pt obs admit for lethargy/Failure to thrive/Unable to ambulate 10/06/22 21:32 Nursing note and vital signs reviewed Additional history per DNR per pt CXR read per ER physician and results shared w pt Labs reviewed and results shared w pt Pt has a chronic cardiomyopathy w Pacer-AICD but does not appear to be in CHF at present 10/06/22 21:36 Discussed with .: Karen Will see patient in: hospital (observation) Counseled pt/family regarding: lab results, diagnosis, rad results Medical Desision Making - Independent Historian Additional History obtained from: Spouse - Discussion of managment Care discussed with:: PCP Reviewed:: Test results Agreed on:: Treatment plan, place in obs Will see patient: in hospital - Social Determinants of Health Patient's diagnosis & treatment plan are significantly: housing insecurity Limited access to: transportation - Diagnostic Testing Diagnostic Testing: Diagnostic tests were ordered,analyzed, and reviewed by me and used in my medical decision making for this patient. Radiologic studies (if ordered) were read by me initially then discussed with the radiologist . All reviewed - Risk of complications Low Risk: Low risk of morbidity from additional dx testing or treatment - Departure Departure Disposition: Observation Clinical Impression: Failure to thrive, Lethargy Condition: Stable Critical Care Time: No Referrals: CANDICE ROCKWELL DO [Primary Care Provider] - Follow up/PCP as directed
[2022-10-06 19:02] LABS: INFLUENZA A NEGATIVE (NEGATIVE); INFLUENZA B NEGATIVE (NEGATIVE); RESPIRATORY SYNCTIAL VIRUS NEGATIVE (Negative); SARS-CoV-2 Xpert Express NEGATIVE (NEGATIVE)
[2022-10-06 20:38] LABS: Appearance Clear (Clear); Bilirubin Negative (Negative); Blood Negative (Negative); Glucose, Urine Negative (Negative); Ketones 15 (Negative); Leukocyte Esterase Negative (Negative); Nitrite Negative (Negative); Ph 5.5 (4.6-8.0); Protein,Urine Dip 30 (Negative); RBC 0-2 /HPF (0-5); WBC 0-2 /HPF (0-5)
[2022-10-06 20:39] LABS: ADD URINE CULTURE? NO (NO); Bacteria Rare /HPF (None Seen); Epithelial Cells Rare /HPF (None Seen); Hyaline Casts 0-2 /LPF (0-2)
--- NOTE | 2022-10-06 23:07 | XRAY ---
Indication: Lethargy. Comparison: May 23, 2021 Portable chest demonstrates clearing previous right mid lung infiltrate/atelectasis with now fibrosis/scarring. Stable bilateral calcified granulomas and cardiomegaly. Stable left AICD now obscuring left lung base. Bony thorax intact again with osteopenia. Impression: Nonacute chest with chronic features.
[2022-10-07] MEDS ORDERED: Compazine 5 MG PO PRN (00:10)
[2022-10-07] MEDS ORDERED: COREG 12.5 MG PO ONE (00:30)
[2022-10-07] MEDS: PROTONIX 40 MG IV IV SCH (00:36)
[2022-10-07] MEDS: NYSTOP POWDER 15 GM TP SCH ×2 (00:37→21:34)
[2022-10-07] MEDS: Compazine 10 MG/2 ML IV PRN ×2 (00:55→05:17)
[2022-10-07] MEDS: Sodium Chloride 0.9% 1000 ML 1,000 ML IV SCH ×3 (00:57→20:10)
[2022-10-07 06:36] LABS: Absolute Neutrophil Ct (ANC) 3.21 x10^3/uL (1.4-6.9); BASOPHIL % 0.6 % (0.0-0.4); Basophil (Absolute #) 0.03 x10^3/uL (0-0.4); Eosinophil % 2.9 % (0.00-5.0); Eosinophil (Absolute #) 0.14 x10^3/uL (0-0.5); Hematocrit 31.4 % (35-47); Hemoglobin 9.8 g/dL (12.0-16.0); IMMATURE GRAN # 0.02 x10^3u/L (0.00-0.03); IMMATURE GRAN % 0.4 % (0.00-0.4); Lymphocyte (Absolute #) 0.88 x10^3/uL (1.0-4.6); Mean Cell Volume 89.2 fL (78-100); Mean Corpuscular Hemoglobin 27.8 pg (26-32); Mean Corpuscular Hgb Concent. 31.2 g/dL (32-36); Mean Platelet Volume 11.8 fL (7.5-11.0); Monocytes % 12.3 % (0.0-12.0); Neutrophil % 65.8 % (36.0-66.0); Platelet Count 183 x10^3/uL (150-450); Red Blood Count 3.52 x10^6/uL (4.1-5.4); Red Cell Distribution Width 15.1 % (11.5-14.0); White Blood Count 4.9 x10^3/uL (4.0-10.5)
[2022-10-07 07:17] LABS: ALBUMIN 2.4 g/dL (3.5-5.0); ANION GAP 11.9 MEQ/L (5-15); BILIRUBIN,TOTAL 0.7 mg/dL (0.2-1.3); Calcium 7.6 mg/dL (8.4-10.2); Creatinine 1 1.08 mg/dL (0.52-1.04); EST GLOMERULAR FILTRATION RATE 54.1 ML/MIN; Total Protein 5.4 g/dL (6.3-8.2)
[2022-10-07 07:37] LABS: Potassium 2.9 mmol/L (3.5-5.1)
[2022-10-07] MEDS: POTASSIUM CHLORIDE 20 mEq IN WATER 100ML 100 ML IV SCH ×6 (08:39→20:10)
[2022-10-07] MEDS: Zofran 4 MG/2 ML VIAL IV PRN ×2 (08:54→19:43)
[2022-10-07] MEDS: Klor Con PO SCH ×2 (09:18→11:10)
--- NOTE | 2022-10-07 10:27 | PCM.HP ---
History of Present Illness - Chief Complaint Chief Complaint: weakness loss of appetite for 1 week History of Present Illness: is a 67 year old female. c/o generalized weakness over the last week. Pt is morbidly obese and usually ambulates wo a walker or cane but has been recently been using a walker. She has had nausea/vomiting x4 months of unknown etiology and has had diarrhea today. Pt denies hematemesis/melena/hematochezia/dysuria/hematuria/abdominal pain/chest pain/fever/cough/coryza/dyspnea/focal weakness. Timing/Duration: other (1 week) Severity: moderate Modifying Factors: Improves With: nothing Associated Symptoms: nausea, vomiting, weakness, No abdominal pain, No shortness of breath, No heartburn, No diaphoresis, No cough, No chills, No chest pain, No fever, No headaches, No loss of appetite, No malaise, No rash, No syncope, No seizure - Review of Systems Constitutional: Weakness, No Fever, No Chills Eyes: No Symptoms Ears, Nose, & Throat: No Symptoms Respiratory: Short Of Breath, No Cough Cardiac: No Chest Pain, No Edema, No Syncope Abdominal/Gastrointestinal: No Abdominal Pain, No Nausea, No Vomiting, No Diarrhea Genitourinary Symptoms: No Dysuria Musculoskeletal: No Back Pain, No Neck Pain Skin: No Rash Neurological: No Dizziness, No Focal Weakness, No Sensory Changes Psychological: No Symptoms Endocrine: No Symptoms Hematologic/Lymphatic: No Symptoms Immunological/Allergic: No Symptoms Medications & Allergies Home Medications: Home Medication List Rivaroxaban [Xarelto] 15 mg PO DAILY 05/21/18 [History Confirmed 10/06/22] Atorvastatin Calcium 80 mg PO HS 07/30/19 [History Confirmed 10/06/22] ALPRAZolam [Alprazolam] 1 mg PO BIDPRN PRN 07/20/22 [History Confirmed 10/06/22] Amiodarone HCl 200 mg PO DAILY 07/20/22 [History Confirmed 10/06/22] Bumetanide 2 mg PO DAILY 07/20/22 [History Confirmed 10/06/22] Carvedilol 12.5 mg [Coreg 12.5 mg] 12.5 mg PO BID 07/20/22 [History Confirmed 10/06/22] Cholecalciferol (Vitamin D3) [D3-5000] 125 mcg PO DAILY 07/20/22 [History Confirmed 10/06/22] Ezetimibe 10 mg [Zetia 10 MG] 10 mg PO HS 07/20/22 [History Confirmed 10/06/22] Levothyroxine Sodium 112 Mcg [Synthroid 112 Mcg] 112 mcg PO DAILY 07/20/22 [History Confirmed 10/06/22] Potassium Chloride Tab* [Klor Con] 20 meq PO TID 07/20/22 [History Confirmed 10/06/22] Prochlorperazine Maleate 5 mg* [Compazine 5 MG] 5 mg PO BID PRN 15 Days #30 tablet 09/25/22 [Rx Confirmed 10/06/22] Allergies/Adverse Reactions: Allergies Allergy/AdvReac Type Severity Reaction Status Date / Time lorazepam AdvReac Intermediate Verified 09/23/22 11:04 - Past Medical History Past Medical History: Yes Cardiac History: Arrhythmia, High Cholesterol, Hypertension Respiratory History: COPD, Emphysema Endocrine Medical History: Hypothyroidism Musculoskelatal History: No Pertinent History GI Medical History: No Pertinent History History: No Pertinent History Pyscho-Social History: Anxiety Reproductive Disorders: No Pertinent History Comment: CARDIOMYOPATHY, Gout, stage IV renal - Past Surgical History Past Surgical History: Yes Neuro Surgical History: No Pertinent History Cardiac History: Internal Defibrillator Respiratory Surgery: No Pertinent History GI Surgical History: Cholecystectomy Musculskeletal Surgical Hx: Orthopedic Surgery Other Surgical History: ROTATOR CUFF, L FOOT SX - Social History Smoking Status: Former smoker Exposure to second hand smoke: No Alcohol: None Drug Use: none - Physical Exam Vital Signs: Vital Signs - 24 hr Temp Pulse Resp BP Pulse Ox 10/07/22 08:00 98.1 F 62 22 134/58 89 L 10/07/22 04:00 97.7 F 61 19 125/57 91 L 10/07/22 01:46 97.5 F 78 20 169/63 95 10/06/22 22:43 97.5 F 78 20 169/63 95 10/06/22 22:13 95 10/06/22 22:06 80 152/56 94 L 10/06/22 21:00 79 171/60 95 10/06/22 20:00 79 22 170/59 97 10/06/22 19:43 77 22 190/63 97 10/06/22 17:44 97.6 F 74 22 181/61 95 General Appearance: no apparent distress, alert Neurologic Exam: alert, oriented x 3, cooperative, normal mood/affect, nml cerebellar function, nml station & gait, sensation nml, No motor deficits Eye Exam: PERRL/EOMI, eyes nml inspection Ears, Nose, Throat Exam: normal ENT inspection, TMs normal, pharynx normal, moist mucous membranes Neck Exam: normal inspection, non-tender, supple, full range of motion Respiratory Exam: normal breath sounds, lungs clear, No respiratory distress Cardiovascular Exam: regular rate/rhythm, normal heart sounds, normal peripheral pulses Gastrointestinal/Abdomen Exam: soft, normal bowel sounds, No tenderness, No mass Back Exam: normal inspection, normal range of motion, No CVA tenderness, No vertebral tenderness Extremity Exam: normal inspection, normal range of motion, pelvis stable Skin Exam: normal color, warm, dry, No rash Lymphatic Exam: No adenopathy Results - Labs Lab/Micro Results: Lab Results-Last 24 Hours 10/06/22 10/06/22 10/06/22 Range/Units 18:19 18:25 18:25 WBC 6.0 (4.0-10.5) x10^3/uL RBC 4.09 L (4.1-5.4) x10^6/uL Hgb 11.1 L (12.0-16.0) g/dL Hct 36.8 (35-47) % MCV 90.0 (78-100) fL MCH 27.1 (26-32) pg MCHC 30.2 L (32-36) g/dL RDW 14.6 H (11.5-14.0) % Plt Count 192 (150-450) x10^3/uL MPV 11.2 H (7.5-11.0) fL Gran % 68.2 H (36.0-66.0) % Immature Gran % (Auto) 0.5 H (0.00-0.4) % Nucleat RBC Rel Count 0.0 (0.00-0.1) % Eos # (Auto) 0.15 (0-0.5) x10^3/uL Immature Gran # (Auto) 0.03 (0.00-0.03) x10^3u/L Absolute Lymphs (auto) 0.93 L (1.0-4.6) x10^3/uL Absolute Monos (auto) 0.77 (0.0-1.3) x10^3/uL Absolute Nucleated RBC 0.00 (0.00-0.01) x10^3u/L Lymphocytes % 15.6 L (24.0-44.0) % Monocytes % 12.9 H (0.0-12.0) % Eosinophils % 2.5 (0.00-5.0) % Basophils % 0.3 (0.0-0.4) % Absolute Granulocytes 4.07 (1.4-6.9) x10^3/uL Basophils # 0.02 (0-0.4) x10^3/uL PT (9.4-12.5) SECONDS INR (0.8-3.0) APTT (25.1-36.5) SECONDS Sodium 134 L (137-145) mmol/L Potassium 3.5 (3.5-5.1) mmol/L Chloride 100 (98-107) mmol/L Carbon Dioxide 24 (22-30) mmol/L Anion Gap 12.8 (5-15) MEQ/L BUN 6 L (7-17) mg/dL Creatinine 1.10 H (0.52-1.04) mg/dL Estimated GFR 53.0 ML/MIN Glucose 83 (74-106) mg/dL Lactic Acid 1.0 (0.4-2.0) Calcium 8.1 L (8.4-10.2) mg/dL Magnesium (1.6-2.3) mg/dL Total Bilirubin 0.90 (0.2-1.3) mg/dL AST 66 H (14-36) U/L ALT 31 (0-35) U/L Alkaline Phosphatase 100 (38-126) U/L Troponin I (0.000-0.034) ng/mL NT-Pro-B Natriuret Pep 4230 H (0-900) pg/mL Serum Total Protein 6.2 L (6.3-8.2) g/dL Albumin 3.0 L (3.5-5.0) g/dL Urine Color (Yellow) Urine Appearance (Clear) Urine pH (4.6-8.0) Ur Specific [place] (1.005-1.030) Urine Protein (Negative) Urine Glucose (UA) (Negative) mg/dL Urine Ketones (Negative) Urine Blood (Negative) Urine Nitrite (Negative) Urine Bilirubin (Negative) Urine Urobilinogen (0.2) mg/dL Ur Leukocyte Esterase (Negative) U Hyaline Cast (Auto) (0-2) /LPF Urine Microscopic RBC (0-5) /HPF Urine Microscopic WBC (0-5) /HPF Ur Epithelial Cells (None Seen) /HPF Urine Bacteria (None Seen) /HPF Urine Culture Reflexed (NO) Influenza Type A Ag (NEGATIVE) Influenza Type B Ag (NEGATIVE) RSV (PCR) (Negative) SARS-CoV-2 (PCR) (NEGATIVE) 10/06/22 10/06/22 10/06/22 Range/Units 18:25 18:25 18:25 WBC (4.0-10.5) x10^3/uL RBC (4.1-5.4) x10^6/uL Hgb (12.0-16.0) g/dL Hct (35-47) % MCV (78-100) fL MCH (26-32) pg MCHC (32-36) g/dL RDW (11.5-14.0) % Plt Count (150-450) x10^3/uL MPV (7.5-11.0) fL Gran % (36.0-66.0) % Immature Gran % (Auto) (0.00-0.4) % Nucleat RBC Rel Count (0.00-0.1) % Eos # (Auto) (0-0.5) x10^3/uL Immature Gran # (Auto) (0.00-0.03) x10^3u/L Absolute Lymphs (auto) (1.0-4.6) x10^3/uL Absolute Monos (auto) (0.0-1.3) x10^3/uL Absolute Nucleated RBC (0.00-0.01) x10^3u/L Lymphocytes % (24.0-44.0) % Monocytes % (0.0-12.0) % Eosinophils % (0.00-5.0) % Basophils % (0.0-0.4) % Absolute Granulocytes (1.4-6.9) x10^3/uL Basophils # (0-0.4) x10^3/uL PT 12.5 (9.4-12.5) SECONDS INR 1.20 (0.8-3.0) APTT 31.3 (25.1-36.5) SECONDS Sodium (137-145) mmol/L Potassium (3.5-5.1) mmol/L Chloride (98-107) mmol/L Carbon Dioxide (22-30) mmol/L Anion Gap (5-15) MEQ/L BUN (7-17) mg/dL Creatinine (0.52-1.04) mg/dL Estimated GFR ML/MIN Glucose (74-106) mg/dL Lactic Acid (0.4-2.0) Calcium (8.4-10.2) mg/dL Magnesium (1.6-2.3) mg/dL Total Bilirubin (0.2-1.3) mg/dL AST (14-36) U/L ALT (0-35) U/L Alkaline Phosphatase (38-126) U/L Troponin I 0.080 H* (0.000-0.034) ng/mL NT-Pro-B Natriuret Pep (0-900) pg/mL Serum Total Protein (6.3-8.2) g/dL Albumin (3.5-5.0) g/dL Urine Color (Yellow) Urine Appearance (Clear) Urine pH (4.6-8.0) Ur Specific [place] (1.005-1.030) Urine Protein (Negative) Urine Glucose (UA) (Negative) mg/dL Urine Ketones (Negative) Urine Blood (Negative) Urine Nitrite (Negative) Urine Bilirubin (Negative) Urine Urobilinogen (0.2) mg/dL Ur Leukocyte Esterase (Negative) U Hyaline Cast (Auto) (0-2) /LPF Urine Microscopic RBC (0-5) /HPF Urine Microscopic WBC (0-5) /HPF Ur Epithelial Cells (None Seen) /HPF Urine Bacteria (None Seen) /HPF Urine Culture Reflexed (NO) Influenza Type A Ag NEGATIVE (NEGATIVE) Influenza Type B Ag NEGATIVE (NEGATIVE) RSV (PCR) NEGATIVE (Negative) SARS-CoV-2 (PCR) NEGATIVE (NEGATIVE) 10/06/22 10/06/22 10/07/22 Range/Units 19:40 20:25 05:40 WBC (4.0-10.5) x10^3/uL RBC (4.1-5.4) x10^6/uL Hgb (12.0-16.0) g/dL Hct (35-47) % MCV (78-100) fL MCH (26-32) pg MCHC (32-36) g/dL RDW (11.5-14.0) % Plt Count (150-450) x10^3/uL MPV (7.5-11.0) fL Gran % (36.0-66.0) % Immature Gran % (Auto) (0.00-0.4) % Nucleat RBC Rel Count (0.00-0.1) % Eos # (Auto) (0-0.5) x10^3/uL Immature Gran # (Auto) (0.00-0.03) x10^3u/L Absolute Lymphs (auto) (1.0-4.6) x10^3/uL Absolute Monos (auto) (0.0-1.3) x10^3/uL Absolute Nucleated RBC (0.00-0.01) x10^3u/L Lymphocytes % (24.0-44.0) % Monocytes % (0.0-12.0) % Eosinophils % (0.00-5.0) % Basophils % (0.0-0.4) % Absolute Granulocytes (1.4-6.9) x10^3/uL Basophils # (0-0.4) x10^3/uL PT (9.4-12.5) SECONDS INR (0.8-3.0) APTT (25.1-36.5) SECONDS Sodium (137-145) mmol/L Potassium (3.5-5.1) mmol/L Chloride (98-107) mmol/L Carbon Dioxide (22-30) mmol/L Anion Gap (5-15) MEQ/L BUN (7-17) mg/dL Creatinine (0.52-1.04) mg/dL Estimated GFR ML/MIN Glucose (74-106) mg/dL Lactic Acid (0.4-2.0) Calcium (8.4-10.2) mg/dL Magnesium (1.6-2.3) mg/dL Total Bilirubin (0.2-1.3) mg/dL AST (14-36) U/L ALT (0-35) U/L Alkaline Phosphatase (38-126) U/L Troponin I 0.076 H* 0.085 H* (0.000-0.034) ng/mL NT-Pro-B Natriuret Pep (0-900) pg/mL Serum Total Protein (6.3-8.2) g/dL Albumin (3.5-5.0) g/dL Urine Color Dark Yellow A (Yellow) Urine Appearance Clear (Clear) Urine pH 5.5 (4.6-8.0) Ur Specific [place] 1.020 (1.005-1.030) Urine Protein 30 (Negative) Urine Glucose (UA) Negative (Negative) mg/dL Urine Ketones 15 A (Negative) Urine Blood Negative (Negative) Urine Nitrite Negative (Negative) Urine Bilirubin Negative (Negative) Urine Urobilinogen 1.0 A (0.2) mg/dL Ur Leukocyte Esterase Negative (Negative) U Hyaline Cast (Auto) 0-2 (0-2) /LPF Urine Microscopic RBC 0-2 (0-5) /HPF Urine Microscopic WBC 0-2 (0-5) /HPF Ur Epithelial Cells Rare (None Seen) /HPF Urine Bacteria Rare A (None Seen) /HPF Urine Culture Reflexed NO (NO) Influenza Type A Ag (NEGATIVE) Influenza Type B Ag (NEGATIVE) RSV (PCR) (Negative) SARS-CoV-2 (PCR) (NEGATIVE) 10/07/22 10/07/22 10/07/22 Range/Units 05:40 05:40 07:38 WBC 4.9 (4.0-10.5) x10^3/uL RBC 3.52 L (4.1-5.4) x10^6/uL Hgb 9.8 L (12.0-16.0) g/dL Hct 31.4 L (35-47) % MCV 89.2 (78-100) fL MCH 27.8 (26-32) pg MCHC 31.2 L (32-36) g/dL RDW 15.1 H (11.5-14.0) % Plt Count 183 (150-450) x10^3/uL MPV 11.8 H (7.5-11.0) fL Gran % 65.8 (36.0-66.0) % Immature Gran % (Auto) 0.4 (0.00-0.4) % Nucleat RBC Rel Count 0.0 (0.00-0.1) % Eos # (Auto) 0.14 (0-0.5) x10^3/uL Immature Gran # (Auto) 0.02 (0.00-0.03) x10^3u/L Absolute Lymphs (auto) 0.88 L (1.0-4.6) x10^3/uL Absolute Monos (auto) 0.60 (0.0-1.3) x10^3/uL Absolute Nucleated RBC 0.00 (0.00-0.01) x10^3u/L Lymphocytes % 18.0 L (24.0-44.0) % Monocytes % 12.3 H (0.0-12.0) % Eosinophils % 2.9 (0.00-5.0) % Basophils % 0.6 (0.0-0.4) % Absolute Granulocytes 3.21 (1.4-6.9) x10^3/uL Basophils # 0.03 (0-0.4) x10^3/uL PT (9.4-12.5) SECONDS INR (0.8-3.0) APTT (25.1-36.5) SECONDS Sodium 134 L (137-145) mmol/L Potassium 2.9 L* (3.5-5.1) mmol/L Chloride 102 (98-107) mmol/L Carbon Dioxide 23 (22-30) mmol/L Anion Gap 11.9 (5-15) MEQ/L BUN 6 L (7-17) mg/dL Creatinine 1.08 H (0.52-1.04) mg/dL Estimated GFR 54.1 ML/MIN Glucose 73 L (74-106) mg/dL Lactic Acid (0.4-2.0) Calcium 7.6 L (8.4-10.2) mg/dL Magnesium 1.6 (1.6-2.3) mg/dL Total Bilirubin 0.70 (0.2-1.3) mg/dL AST 59 H (14-36) U/L ALT 27 (0-35) U/L Alkaline Phosphatase 81 (38-126) U/L Troponin I (0.000-0.034) ng/mL NT-Pro-B Natriuret Pep (0-900) pg/mL Serum Total Protein 5.4 L (6.3-8.2) g/dL Albumin 2.4 L (3.5-5.0) g/dL Urine Color (Yellow) Urine Appearance (Clear) Urine pH (4.6-8.0) Ur Specific [place] (1.005-1.030) Urine Protein (Negative) Urine Glucose (UA) (Negative) mg/dL Urine Ketones (Negative) Urine Blood (Negative) Urine Nitrite (Negative) Urine Bilirubin (Negative) Urine Urobilinogen (0.2) mg/dL Ur Leukocyte Esterase (Negative) U Hyaline Cast (Auto) (0-2) /LPF Urine Microscopic RBC (0-5) /HPF Urine Microscopic WBC (0-5) /HPF Ur Epithelial Cells (None Seen) /HPF Urine Bacteria (None Seen) /HPF Urine Culture Reflexed (NO) Influenza Type A Ag (NEGATIVE) Influenza Type B Ag (NEGATIVE) RSV (PCR) (Negative) SARS-CoV-2 (PCR) (NEGATIVE) 10/07/22 Range/Units 10:03 WBC (4.0-10.5) x10^3/uL RBC (4.1-5.4) x10^6/uL Hgb (12.0-16.0) g/dL Hct (35-47) % MCV (78-100) fL MCH (26-32) pg MCHC (32-36) g/dL RDW (11.5-14.0) % Plt Count (150-450) x10^3/uL MPV (7.5-11.0) fL Gran % (36.0-66.0) % Immature Gran % (Auto) (0.00-0.4) % Nucleat RBC Rel Count (0.00-0.1) % Eos # (Auto) (0-0.5) x10^3/uL Immature Gran # (Auto) (0.00-0.03) x10^3u/L Absolute Lymphs (auto) (1.0-4.6) x10^3/uL Absolute Monos (auto) (0.0-1.3) x10^3/uL Absolute Nucleated RBC (0.00-0.01) x10^3u/L Lymphocytes % (24.0-44.0) % Monocytes % (0.0-12.0) % Eosinophils % (0.00-5.0) % Basophils % (0.0-0.4) % Absolute Granulocytes (1.4-6.9) x10^3/uL Basophils # (0-0.4) x10^3/uL PT (9.4-12.5) SECONDS INR (0.8-3.0) APTT (25.1-36.5) SECONDS Sodium (137-145) mmol/L Potassium 3.3 L (3.5-5.1) mmol/L Chloride (98-107) mmol/L Carbon Dioxide (22-30) mmol/L Anion Gap (5-15) MEQ/L BUN (7-17) mg/dL Creatinine (0.52-1.04) mg/dL Estimated GFR ML/MIN Glucose (74-106) mg/dL Lactic Acid (0.4-2.0) Calcium (8.4-10.2) mg/dL Magnesium (1.6-2.3) mg/dL Total Bilirubin (0.2-1.3) mg/dL AST (14-36) U/L ALT (0-35) U/L Alkaline Phosphatase (38-126) U/L Troponin I (0.000-0.034) ng/mL NT-Pro-B Natriuret Pep (0-900) pg/mL Serum Total Protein (6.3-8.2) g/dL Albumin (3.5-5.0) g/dL Urine Color (Yellow) Urine Appearance (Clear) Urine pH (4.6-8.0) Ur Specific [place] (1.005-1.030) Urine Protein (Negative) Urine Glucose (UA) (Negative) mg/dL Urine Ketones (Negative) Urine Blood (Negative) Urine Nitrite (Negative) Urine Bilirubin (Negative) Urine Urobilinogen (0.2) mg/dL Ur Leukocyte Esterase (Negative) U Hyaline Cast (Auto) (0-2) /LPF Urine Microscopic RBC (0-5) /HPF Urine Microscopic WBC (0-5) /HPF Ur Epithelial Cells (None Seen) /HPF Urine Bacteria (None Seen) /HPF Urine Culture Reflexed (NO) Influenza Type A Ag (NEGATIVE) Influenza Type B Ag (NEGATIVE) RSV (PCR) (Negative) SARS-CoV-2 (PCR) (NEGATIVE) - Radiology Impressions Radiology Exams & Impressions: Radiology Procedures Category Date Time Status CHEST 1 VIEW (PORTABLE) Stat Exams 10/06/22 18:06 Completed - Other Procedures and Tests Respiratory Therapy 10/06/22 23:41 BiPap/CPAP ROUTINE Assessment/Plan (1) Lethargy Current Visit: Yes Status: Acute Code(s): R53.83 - OTHER FATIGUE (2) KEMAL (acute kidney injury) Current Visit: Yes Status: Acute Code(s): N17.9 - ACUTE KIDNEY FAILURE, UNSPECIFIED
[2022-10-07] MEDS: ENOXAPARIN SODIUM SQ SCH (15:30)
[2022-10-07] MEDS: BUMEX 1 MG IV SCH (17:54)
[2022-10-07] MEDS: PATIENT OWN MEDICATION OP PRN (18:29)
[2022-10-07] MEDS: Ativan 2 MG/1 ML VIAL IV PRN (21:23)
[2022-10-08] MEDS: PATIENT OWN MEDICATION OP PRN ×4 (00:20→22:15)
[2022-10-08] MEDS: Zofran 4 MG/2 ML VIAL IV PRN ×2 (03:07→17:22)
[2022-10-08] MEDS: Sodium Chloride 0.9% 1000 ML 1,000 ML IV SCH ×2 (06:08→21:19)
[2022-10-08 06:10] LABS: Hemoglobin 10.3 g/dL (12.0-16.0); Mean Cell Volume 90.7 fL (78-100); Mean Corpuscular Hemoglobin 27.5 pg (26-32); Mean Corpuscular Hgb Concent. 30.3 g/dL (32-36); Mean Platelet Volume 11.5 fL (7.5-11.0); Platelet Count 191 x10^3/uL (150-450); Red Blood Count 3.75 x10^6/uL (4.1-5.4); White Blood Count 5.1 x10^3/uL (4.0-10.5)
[2022-10-08 06:41] LABS: ANION GAP 11.8 MEQ/L (5-15); Calcium 7.4 mg/dL (8.4-10.2); Creatinine 1 1.12 mg/dL (0.52-1.04); EST GLOMERULAR FILTRATION RATE 51.9 ML/MIN; MAGNESIUM 1.5 mg/dL (1.6-2.3); Potassium 3.9 mmol/L (3.5-5.1)
--- NOTE | 2022-10-08 08:10 | PCM.NOTE ---
Date and Time: 10/08/22807 Subjective Assessment: [id number] ok - Review of Systems Constitutional: Lethargy, Weakness, No Fever, No Chills Eyes: No Symptoms Ears, Nose, & Throat: No Symptoms Respiratory: No Cough, No Short Of Breath Cardiac: No Chest Pain, No Edema, No Syncope Abdominal/Gastrointestinal: No Abdominal Pain, No Nausea, No Vomiting, No Diarrhea Genitourinary Symptoms: No Dysuria Musculoskeletal: No Back Pain, No Neck Pain Skin: No Rash Neurological: No Dizziness, No Focal Weakness, No Sensory Changes Psychological: No Symptoms Endocrine: No Symptoms Hematologic/Lymphatic: No Symptoms Immunological/Allergic: No Symptoms Objective Exam General Appearance: no apparent distress, alert Neurologic Exam: alert, oriented x 3, cooperative, normal mood/affect, sensation nml, No motor deficits Skin Exam: normal color, warm, dry Eye Exam: PERRL, EOMI, eyes nml inspection Ears, Nose, Throat Exam: normal ENT inspection, pharynx normal, moist mucous membranes Neck Exam: normal inspection, non-tender, supple, full range of motion Respiratory Exam: normal breath sounds, lungs clear, No respiratory distress Cardiovascular Exam: regular rate/rhythm, normal heart sounds Gastrointestinal/Abdomen Exam: soft, No tenderness, No mass Extremity Exam: normal inspection, normal range of motion Back Exam: normal inspection, normal range of motion, No CVA tenderness, No vertebral tenderness Pelvic Exam: deferred Rectal Exam: deferred OBJECTIVE DATA Vital Signs: Vital Signs - 24 hr Temp Pulse Resp BP BP Pulse Ox 10/08/22 07:36 97.9 F 71 16 150/65 93 L 10/08/22 04:00 97.9 F 78 22 123/60 92 L 10/07/22 23:52 97.5 F 66 20 132/61 94 L 10/07/22 21:23 69 19 128/59 10/07/22 19:07 97.3 F 65 18 128/59 93 L 10/07/22 16:00 97.7 F 64 22 147/66 93 L 10/07/22 11:48 97.2 F 68 16 135/63 93 L Pain Assessment - Last Documented Pain Intensity 0 Intake and Output: Intake & Output 10/05/22 10/06/22 10/07/22 10/08/22 11:59 11:59 11:59 11:59 Intake Total 592 3008 Output Total 50 2000 Balance 542 1008 Weight 124 kg 123.8 kg Lab Results: Lab Results-Last 24 Hours 10/07/22 10/07/22 10/07/22 Range/Units 10:03 14:27 18:37 WBC (4.0-10.5) x10^3/uL RBC (4.1-5.4) x10^6/uL Hgb (12.0-16.0) g/dL Hct (35-47) % MCV (78-100) fL MCH (26-32) pg MCHC (32-36) g/dL RDW (11.5-14.0) % Plt Count (150-450) x10^3/uL MPV (7.5-11.0) fL Sodium (137-145) mmol/L Potassium 3.3 L 3.8 4.6 D (3.5-5.1) mmol/L Chloride (98-107) mmol/L Carbon Dioxide (22-30) mmol/L Anion Gap (5-15) MEQ/L BUN (7-17) mg/dL Creatinine (0.52-1.04) mg/dL Estimated GFR ML/MIN Glucose (74-106) mg/dL Calcium (8.4-10.2) mg/dL Magnesium (1.6-2.3) mg/dL 10/07/22 10/08/22 10/08/22 Range/Units 22:50 05:25 05:25 WBC 5.1 (4.0-10.5) x10^3/uL RBC 3.75 L (4.1-5.4) x10^6/uL Hgb 10.3 L (12.0-16.0) g/dL Hct 34.0 L (35-47) % MCV 90.7 (78-100) fL MCH 27.5 (26-32) pg MCHC 30.3 L (32-36) g/dL RDW 15.0 H (11.5-14.0) % Plt Count 191 (150-450) x10^3/uL MPV 11.5 H (7.5-11.0) fL Sodium 135 L (137-145) mmol/L Potassium 4.8 3.9 (3.5-5.1) mmol/L Chloride 104 (98-107) mmol/L Carbon Dioxide 23 (22-30) mmol/L Anion Gap 11.8 (5-15) MEQ/L BUN 6 L (7-17) mg/dL Creatinine 1.12 H (0.52-1.04) mg/dL Estimated GFR 51.9 ML/MIN Glucose 75 (74-106) mg/dL Calcium 7.4 L (8.4-10.2) mg/dL Magnesium 1.5 L (1.6-2.3) mg/dL Radiology Exams: Radiology Procedures Category Date Time Status CHEST 1 VIEW (PORTABLE) Stat Exams 10/06/22 18:06 Completed Assessment/Plan (1) KEMAL (acute kidney injury) Current Visit: Yes Status: Acute Assessment & Plan: Chief Complaint Diagnosis weakness loss of appetite for 1 week Allergies Allergy/AdvReac Type Severity Reaction Status Date / Time lorazepam AdvReac Intermediate Verified 09/23/22 11:04 Vital Signs (Last 24 hours) Temp Pulse Resp BP BP Pulse Ox 10/08/22 07:36 97.9 F 71 16 150/65 93 L 10/08/22 04:00 97.9 F 78 22 123/60 92 L 10/07/22 23:52 97.5 F 66 20 132/61 94 L 10/07/22 21:23 69 19 128/59 10/07/22 19:07 97.3 F 65 18 128/59 93 L 10/07/22 16:00 97.7 F 64 22 147/66 93 L 10/07/22 11:48 97.2 F 68 16 135/63 93 L Home Medications Medication Instructions Recorded Confirmed Last Taken Type Tobramycin/Dexamethasone [Tobradex 1 drop OP Q6H 10/07/22 10/07/22 Unknown History Eye Drops] Current Medications Generic Name Dose Route Start Last Admin Trade Name Freq PRN Reason Stop Dose Admin Bumetanide 1 mg 10/07/22 17:00 10/07/22 17:54 Bumetanide 0.25 Mg/Ml 4ml Vial IV 11/06/22 16:59 1 mg BID DIURETIC RODRIGO Administration Enoxaparin Sodium 40 mg 10/07/22 15:00 10/07/22 15:30 Enoxaparin Sodium 40 Mg/0.4 Ml Syringe SQ 11/06/22 14:59 40 mg DAILY RODRIGO Administration Sodium Chloride 1,000 mls @ 100 mls/hr 10/06/22 21:30 10/08/22 06:08 Sodium Chloride 0.9% 1000 Ml IV 11/05/22 21:29 100 mls/hr .Q10H RODRIGO Administration Lorazepam 1 - 2 mg 10/07/22 14:12 10/07/22 21:23 Lorazepam 2 Mg/1 Ml 2 Mg Vial IV 11/06/22 14:11 1 mg BIDPRN PRN Administration Nystatin 1 gm 10/07/22 10:00 10/07/22 21:34 Nystatin 15 Gm Powder TP 11/06/22 09:59 1 gm BID RODRIGO Administration Ondansetron HCl 4 mg 10/07/22 00:12 10/08/22 03:07 Ondansetron Hcl 4 Mg/2 Ml Vial IV 11/06/22 00:11 4 mg Q4H PRN PRN Administration NAUSEA/VOMITING Pantoprazole Sodium 40 mg 10/07/22 10:00 10/07/22 00:36 Pantoprazole 40 Mg Vial IV 11/06/22 09:59 40 mg Q24H10 RODRIGO Administration Tobradex 0.3%/0.1% - 1 each 10/07/22 18:00 10/08/22 00:20 Patient Own Med OP 11/06/22 17:59 1 each Misc Q6HT PRN Administration Potassium Bicarbonate 25 meq 10/08/22 10:00 Potassium Bicarbonate 25 Meq Tab PO 11/07/22 09:59 TID RODRIGO Prochlorperazine Edisylate 5 mg 10/07/22 00:28 10/07/22 05:17 Prochlorperazine Edisylate 10 Mg/2 Ml Vial IV 11/06/22 00:27 5 mg Q4H PRN PRN Administration NAUSEA/VOMITING Discontinued Medications Generic Name Dose Route Start Last Admin Trade Name Freq PRN Reason Stop Dose Admin Carvedilol 12.5 mg 10/07/22 00:30 10/07/22 00:35 Carvedilol 12.5 Mg Tablet PO 10/07/22 00:31 12.5 mg ONCE ONE Administration Potassium Chloride 100 mls @ 50 mls/hr 10/07/22 08:00 10/07/22 20:10 Potassium Chloride 20 Meq In Water 100ml IV 10/07/22 19:59 50 mls/hr Q2H RODRIGO Administration Potassium Chloride 20 meq 10/07/22 08:00 10/07/22 11:10 Potassium Chloride Tab 10 Meq Tab PO 10/07/22 14:01 Not Given Q2H RODRIGO Intake & Output (Last 24 hours) 10/05/22 10/06/22 10/07/22 10/08/22 11:59 11:59 11:59 11:59 Intake Total 592 3008 Output Total 50 2000 Balance 542 1008 Weight 124 kg 123.8 kg Laboratory Results (Last 24 hours) 10/08/22 10/08/22 10/07/22 05:25 05:25 22:50 WBC 5.1 RBC 3.75 L Hgb 10.3 L Hct 34.0 L MCV 90.7 MCH 27.5 MCHC 30.3 L RDW 15.0 H Plt Count 191 MPV 11.5 H Sodium 135 L Potassium 3.9 4.8 Chloride 104 Carbon Dioxide 23 Anion Gap 11.8 BUN 6 L Creatinine 1.12 H Estimated GFR 51.9 Glucose 75 Calcium 7.4 L Magnesium 1.5 L 10/07/22 10/07/22 10/07/22 18:37 14:27 10:03 WBC RBC Hgb Hct MCV MCH MCHC RDW Plt Count MPV Sodium Potassium 4.6 D 3.8 3.3 L Chloride Carbon Dioxide Anion Gap BUN Creatinine Estimated GFR Glucose Calcium Magnesium Orders (Last 24 hours) Category Date Time Status Telemetry Q6H Care 10/07/22 07:58 Active BMP AM.LAB Lab 10/08/22 05:25 Completed CBC AM.LAB Lab 10/08/22 05:25 Completed MAGNESIUM AM.LAB Lab 10/08/22 05:25 Completed MAGNESIUM Stat Lab 10/07/22 07:38 Completed Potassium Q4H Lab 10/07/22 10:03 Completed Potassium Q4H Lab 10/07/22 14:27 Completed Potassium Q4H Lab 10/07/22 18:37 Completed Potassium Urgent Lab 10/07/22 22:50 Completed Bumetanide 1 mg [Bumex 1 mg] Med 10/07/22 17:00 Active 1 mg IV BID DIURETIC Enoxaparin Sodium [Enoxaparin Sodium] Med 10/07/22 15:00 Active 40 mg SQ DAILY Lorazepam 2 mg/1 ml [Ativan 2 MG/1 ML VIAL] Med 10/07/22 14:12 Active 1 - 2 mg IV BIDPRN PRN Nystatin Powder 15 gm [Nystop Powder 15 gm] Med 10/07/22 10:00 Active 1 gm TP BID Pantoprazole 40 mg [Protonix 40 mg IV] Med 10/07/22 10:00 Active 40 mg IV Q24H10 Patient Own Med [Patient Own Medication] Med 10/07/22 18:00 Active 1 each OP Q6HT PRN Potassium Bicarbonate [K-Lyte ] Med 10/08/22 10:00 Active 25 meq PO TID Potassium Chloride 20Meq/100Ml [POTASSIUM CHLORIDE 20 Med 10/07/22 08:00 Discontinued mEq IN WATER 100ML] 100 ml IV Q2H Potassium Chloride Tab* [Klor Con] Med 10/07/22 08:00 Discontinued 20 meq PO Q2H Patient Care Notes (Last 24 hours) 10/07/22 15:06 Nursing Note by Rimma Carl Placed on bedpan. Patient had moderate amt brown liquid stoo.. Initialized on 10/07/22 15:06 - END OF NOTE 10/07/22 12:44 Nursing Note by Rimma Carl Patient placed on bedpan with no results. Initialized on 10/07/22 12:44 - END OF NOTE 10/07/22 12:18 Nursing Note by Rimma Carl Patient refused lunch tray. Initialized on 10/07/22 12:18 - END OF NOTE 10/07/22 09:14 Nursing Note by Rimma Carl Patient on clear liquid diet. Has jello at bedside, but not eating. Initialized on 10/07/22 09:14 - END OF NOTE Code(s): N17.9 - ACUTE KIDNEY FAILURE, UNSPECIFIED (2) Lethargy Current Visit: Yes Status: Acute Code(s): R53.83 - OTHER FATIGUE (3) Morbid obesity with BMI of 50.0-59.9, adult Current Visit: Yes Status: Chronic Code(s): E66.01 - MORBID (SEVERE) OBESITY DUE TO EXCESS CALORIES; Z68.43 - BODY MASS INDEX [BMI] 50.0-59.9, ADULT
[2022-10-08] MEDS: NYSTOP POWDER 15 GM TP SCH ×2 (10:32→22:15)
[2022-10-08] MEDS: K-LYTE PO SCH ×3 (10:33→23:32)
[2022-10-08] MEDS: PROTONIX 40 MG IV IV SCH (10:33)
[2022-10-08] MEDS: ENOXAPARIN SODIUM SQ SCH (10:33)
[2022-10-08] MEDS: BUMEX 1 MG IV SCH ×2 (10:33→17:08)
[2022-10-08] MEDS ORDERED: XANAX 1 MG PO PRN (15:12)
[2022-10-08] MEDS: Compazine 10 MG/2 ML IV PRN (21:40)
[2022-10-09 05:20] LABS: Absolute Neutrophil Ct (ANC) 3.25 x10^3/uL (1.4-6.9); BASOPHIL % 0.6 % (0.0-0.4); Basophil (Absolute #) 0.03 x10^3/uL (0-0.4); Eosinophil (Absolute #) 0.26 x10^3/uL (0-0.5); Hemoglobin 10.5 g/dL (12.0-16.0); IMMATURE GRAN # 0.03 x10^3u/L (0.00-0.03); IMMATURE GRAN % 0.6 % (0.00-0.4); Lymphocyte (Absolute #) 1.08 x10^3/uL (1.0-4.6); Mean Cell Volume 89.5 fL (78-100); Mean Corpuscular Hemoglobin 27.6 pg (26-32); Mean Corpuscular Hgb Concent. 30.9 g/dL (32-36); Mean Platelet Volume 11.6 fL (7.5-11.0); Monocytes % 9.7 % (0.0-12.0); Neutrophil % 63.1 % (36.0-66.0); Platelet Count 197 x10^3/uL (150-450); White Blood Count 5.2 x10^3/uL (4.0-10.5)
[2022-10-09 05:53] LABS: ALBUMIN 2.7 g/dL (3.5-5.0); ANION GAP 10.3 MEQ/L (5-15); BILIRUBIN,TOTAL 0.6 mg/dL (0.2-1.3); Calcium 7.2 mg/dL (8.4-10.2); Creatinine 1 1.14 mg/dL (0.52-1.04); EST GLOMERULAR FILTRATION RATE 50.8 ML/MIN; Potassium 3.3 mmol/L (3.5-5.1); Total Protein 5.9 g/dL (6.3-8.2)
[2022-10-09] MEDS ORDERED: Magnesium 1 Gm / 100 Ml D5W*** 100 ML IV ONE ×2 (08:45→08:46)
[2022-10-09] MEDS: MAGNESIUM SULF 2 G/50 ML BAG 2 GM/50 ML PIGGYBACK IV SCH ×2 (09:36→10:41)
[2022-10-09] MEDS: POTASSIUM CHLORIDE 20 mEq IN WATER 100ML 100 ML IV SCH ×4 (09:36→16:54)
[2022-10-09] MEDS: Compazine 10 MG/2 ML IV PRN ×2 (09:43→18:36)
[2022-10-09] MEDS: K-LYTE PO SCH ×3 (09:47→22:15)
[2022-10-09] MEDS: ENOXAPARIN SODIUM SQ SCH (09:47)
[2022-10-09] MEDS: PROTONIX 40 MG IV IV SCH (09:47)
[2022-10-09] MEDS: BUMEX 1 MG IV SCH ×2 (09:47→16:24)
[2022-10-09] MEDS: NYSTOP POWDER 15 GM TP SCH ×2 (09:47→22:53)
--- NOTE | 2022-10-09 14:04 | PCM.NOTE ---
Date and Time: 10/09/22 1400 Subjective Assessment: Patient is very lethargic . PT evaluated and advise longer rehab stay after acute issues resolved. Magnesium = 1.2 this morning. Protocol for magnesium replacement. BNP and troponin levels have improved. Objective Exam General Appearance: no apparent distress, lethargy Neurologic Exam: alert, oriented x 3, normal mood/affect (pleasant) Skin Exam: normal color, warm, dry Respiratory Exam: diminished breath sounds (no wheezing or ronchi or rales) Cardiovascular Exam: regular rate/rhythm Gastrointestinal/Abdomen Exam: soft (nontender) Extremity Exam: pedal edema OBJECTIVE DATA Vital Signs: Vital Signs - 24 hr Temp Pulse Resp BP Pulse Ox 10/09/22 12:00 98.1 F 73 16 141/61 94 L 10/09/22 07:32 97.7 F 67 16 143/66 92 L 10/09/22 04:00 97.8 F 72 19 140/65 91 L 10/08/22 19:26 97.8 F 72 18 143/63 93 L 10/08/22 16:00 97.8 F 71 16 131/58 93 L Pain Assessment - Last Documented Pain Intensity 0 Intake and Output: Intake & Output 10/07/22 10/08/22 10/09/22 10/10/22 11:59 11:59 11:59 11:59 Intake Total 592 3008 2171 60 Output Total 50 2000 4300 Balance 542 1008 -2129 60 Weight 124 kg 123.8 kg 122 kg Lab Results: Lab Results-Last 24 Hours 10/09/22 10/09/22 10/09/22 Range/Units 04:27 04:27 04:27 WBC 5.2 (4.0-10.5) x10^3/uL RBC 3.80 L (4.1-5.4) x10^6/uL Hgb 10.5 L (12.0-16.0) g/dL Hct 34.0 L (35-47) % MCV 89.5 (78-100) fL MCH 27.6 (26-32) pg MCHC 30.9 L (32-36) g/dL RDW 15.0 H (11.5-14.0) % Plt Count 197 (150-450) x10^3/uL MPV 11.6 H (7.5-11.0) fL Gran % 63.1 (36.0-66.0) % Immature Gran % (Auto) 0.6 H (0.00-0.4) % Nucleat RBC Rel Count 0.0 (0.00-0.1) % Eos # (Auto) 0.26 (0-0.5) x10^3/uL Immature Gran # (Auto) 0.03 (0.00-0.03) x10^3u/L Absolute Lymphs (auto) 1.08 (1.0-4.6) x10^3/uL Absolute Monos (auto) 0.50 (0.0-1.3) x10^3/uL Absolute Nucleated RBC 0.00 (0.00-0.01) x10^3u/L Lymphocytes % 21.0 L (24.0-44.0) % Monocytes % 9.7 (0.0-12.0) % Eosinophils % 5.0 (0.00-5.0) % Basophils % 0.6 (0.0-0.4) % Absolute Granulocytes 3.25 (1.4-6.9) x10^3/uL Basophils # 0.03 (0-0.4) x10^3/uL Sodium 132 L (137-145) mmol/L Potassium 3.3 L (3.5-5.1) mmol/L Chloride 99 (98-107) mmol/L Carbon Dioxide 26 (22-30) mmol/L Anion Gap 10.3 (5-15) MEQ/L BUN 6 L (7-17) mg/dL Creatinine 1.14 H (0.52-1.04) mg/dL Estimated GFR 50.8 ML/MIN Glucose 90 (74-106) mg/dL Calcium 7.2 L (8.4-10.2) mg/dL Magnesium (1.6-2.3) mg/dL Total Bilirubin 0.60 (0.2-1.3) mg/dL AST 61 H (14-36) U/L ALT 27 (0-35) U/L Alkaline Phosphatase 87 (38-126) U/L Troponin I 0.064 H* (0.000-0.034) ng/mL NT-Pro-B Natriuret Pep 2120 H (0-900) pg/mL Serum Total Protein 5.9 L (6.3-8.2) g/dL Albumin 2.7 L (3.5-5.0) g/dL 10/09/22 10/09/22 Range/Units 05:00 13:16 WBC (4.0-10.5) x10^3/uL RBC (4.1-5.4) x10^6/uL Hgb (12.0-16.0) g/dL Hct (35-47) % MCV (78-100) fL MCH (26-32) pg MCHC (32-36) g/dL RDW (11.5-14.0) % Plt Count (150-450) x10^3/uL MPV (7.5-11.0) fL Gran % (36.0-66.0) % Immature Gran % (Auto) (0.00-0.4) % Nucleat RBC Rel Count (0.00-0.1) % Eos # (Auto) (0-0.5) x10^3/uL Immature Gran # (Auto) (0.00-0.03) x10^3u/L Absolute Lymphs (auto) (1.0-4.6) x10^3/uL Absolute Monos (auto) (0.0-1.3) x10^3/uL Absolute Nucleated RBC (0.00-0.01) x10^3u/L Lymphocytes % (24.0-44.0) % Monocytes % (0.0-12.0) % Eosinophils % (0.00-5.0) % Basophils % (0.0-0.4) % Absolute Granulocytes (1.4-6.9) x10^3/uL Basophils # (0-0.4) x10^3/uL Sodium (137-145) mmol/L Potassium 3.6 (3.5-5.1) mmol/L Chloride (98-107) mmol/L Carbon Dioxide (22-30) mmol/L Anion Gap (5-15) MEQ/L BUN (7-17) mg/dL Creatinine (0.52-1.04) mg/dL Estimated GFR ML/MIN Glucose (74-106) mg/dL Calcium (8.4-10.2) mg/dL Magnesium 1.2 L (1.6-2.3) mg/dL Total Bilirubin (0.2-1.3) mg/dL AST (14-36) U/L ALT (0-35) U/L Alkaline Phosphatase (38-126) U/L Troponin I (0.000-0.034) ng/mL NT-Pro-B Natriuret Pep (0-900) pg/mL Serum Total Protein (6.3-8.2) g/dL Albumin (3.5-5.0) g/dL Radiology Exams: Radiology Procedures Category Date Time Status ECHO W/2D AND DOPPLER [US] Routine Exams 10/09/22 09:07 Taken Multi-Disciplinary Progress Notes: Multi-Disciplinary Progress Notes 10/09/22 10:05 Case Management Note by Caty Pedraza REFERRAL FAXED TO [facility] AT THIS TIME Initialized on 10/09/22 10:05 - END OF NOTE Assessment/Plan (1) CHF (congestive heart failure) Current Visit: No Status: Acute Qualifiers: Heart failure type: systolic Heart failure chronicity: acute on chronic Qualified Code(s): I50.23 - Acute on chronic systolic (congestive) heart failure Assessment & Plan: ECHO today, BNP improved,[employer] Dr Saul. Code(s): I50.9 - HEART FAILURE, UNSPECIFIED (2) Hypomagnesemia Current Visit: No Status: Acute Code(s): E83.42 - HYPOMAGNESEMIA (3) Hypokalemia Current Visit: Yes Status: Acute Code(s): E87.6 - HYPOKALEMIA
[2022-10-09] MEDS: Robitussin-Dm Syrup PO SCH ×3 (15:35→22:15)
[2022-10-09] MEDS: Sodium Chloride 0.9% 1000 ML 1,000 ML IV SCH (16:24)
[2022-10-09] MEDS ORDERED: POTASSIUM CHLORIDE 20 mEq IN WATER 100ML 20 MEQ/100 ML BAG IV ONE (19:01)
[2022-10-09] MEDS: PATIENT OWN MEDICATION OP PRN (21:50)
[2022-10-09] MEDS: Ativan 2 MG/1 ML VIAL IV PRN (21:54)
[2022-10-10 02:53] LABS: BASOPHIL % 0.4 % (0.0-0.4); Basophil (Absolute #) 0.02 x10^3/uL (0-0.4); Eosinophil % 4.1 % (0.00-5.0); Eosinophil (Absolute #) 0.21 x10^3/uL (0-0.5); Hematocrit 32.7 % (35-47); Hemoglobin 10.1 g/dL (12.0-16.0); IMMATURE GRAN # 0.04 x10^3u/L (0.00-0.03); IMMATURE GRAN % 0.8 % (0.00-0.4); Lymphocyte (Absolute #) 1.07 x10^3/uL (1.0-4.6); Lymphocytes % 20.7 % (24.0-44.0); Mean Cell Volume 89.3 fL (78-100); Mean Corpuscular Hemoglobin 27.6 pg (26-32); Mean Corpuscular Hgb Concent. 30.9 g/dL (32-36); Mean Platelet Volume 11.1 fL (7.5-11.0); Monocyte (Absolute #) 0.64 x10^3/uL (0.0-1.3); Monocytes % 12.4 % (0.0-12.0); Neutrophil % 61.6 % (36.0-66.0); Platelet Count 193 x10^3/uL (150-450); Red Blood Count 3.66 x10^6/uL (4.1-5.4); Red Cell Distribution Width 14.8 % (11.5-14.0); White Blood Count 5.2 x10^3/uL (4.0-10.5)
[2022-10-10 03:07] LABS: ALBUMIN 2.7 g/dL (3.5-5.0); ANION GAP 8.2 MEQ/L (5-15); BILIRUBIN,TOTAL 0.5 mg/dL (0.2-1.3); Calcium 7.1 mg/dL (8.4-10.2); Creatinine 1 1.21 mg/dL (0.52-1.04); EST GLOMERULAR FILTRATION RATE 47.5 ML/MIN; MAGNESIUM 1.9 mg/dL (1.6-2.3); Potassium 3.6 mmol/L (3.5-5.1); Total Protein 5.7 g/dL (6.3-8.2)
[2022-10-10] MEDS: NYSTOP POWDER 15 GM TP SCH ×3 (09:18→22:37)
[2022-10-10] MEDS: K-LYTE PO SCH ×3 (09:35→22:21)
[2022-10-10] MEDS: Robitussin-Dm Syrup PO SCH ×4 (09:35→22:37)
--- NOTE | 2022-10-10 10:33 | PCM.NOTE ---
Date and Time: 10/10/22 1029 Subjective Assessment: Patient refuses po states she chokes and then she coughs and gags. States feeling stronger today ,magnesium IV replacement yesterday and level normal this morning. Will ask speech therapy to eval for possible swallow studies. Objective Exam General Appearance: no apparent distress Neurologic Exam: alert, oriented x 3, cooperative Skin Exam: normal color, warm, dry Cardiovascular Exam: regular rate/rhythm Gastrointestinal/Abdomen Exam: soft (nontender) Extremity Exam: pedal edema OBJECTIVE DATA Vital Signs: Vital Signs - 24 hr Temp Pulse Resp BP Pulse Ox 10/10/22 06:59 97.3 F 85 15 152/68 92 L 10/10/22 04:00 97.7 F 81 18 143/64 91 L 10/09/22 23:22 97.5 F 74 17 128/76 90 L 10/09/22 19:08 97.5 F 78 18 127/58 91 L 10/09/22 16:00 97.9 F 67 16 131/60 89 L 10/09/22 12:00 98.1 F 73 16 141/61 94 L Pain Assessment - Last Documented Pain Intensity 0 Intake and Output: Intake & Output 10/07/22 10/08/22 10/09/22 10/10/22 11:59 11:59 11:59 11:59 Intake Total 592 3008 2171 780 Output Total 50 2000 4300 2200 Balance 542 9858 -5594 -0385 Weight 124 kg 123.8 kg 122 kg Lab Results: Lab Results-Last 24 Hours 10/09/22 10/09/22 10/10/22 Range/Units 13:16 17:54 02:40 WBC 5.2 (4.0-10.5) x10^3/uL RBC 3.66 L (4.1-5.4) x10^6/uL Hgb 10.1 L (12.0-16.0) g/dL Hct 32.7 L (35-47) % MCV 89.3 (78-100) fL MCH 27.6 (26-32) pg MCHC 30.9 L (32-36) g/dL RDW 14.8 H (11.5-14.0) % Plt Count 193 (150-450) x10^3/uL MPV 11.1 H (7.5-11.0) fL Gran % 61.6 (36.0-66.0) % Immature Gran % (Auto) 0.8 H (0.00-0.4) % Nucleat RBC Rel Count 0.0 (0.00-0.1) % Eos # (Auto) 0.21 (0-0.5) x10^3/uL Immature Gran # (Auto) 0.04 H (0.00-0.03) x10^3u/L Absolute Lymphs (auto) 1.07 (1.0-4.6) x10^3/uL Absolute Monos (auto) 0.64 (0.0-1.3) x10^3/uL Absolute Nucleated RBC 0.00 (0.00-0.01) x10^3u/L Lymphocytes % 20.7 L (24.0-44.0) % Monocytes % 12.4 H (0.0-12.0) % Eosinophils % 4.1 (0.00-5.0) % Basophils % 0.4 (0.0-0.4) % Absolute Granulocytes 3.20 (1.4-6.9) x10^3/uL Basophils # 0.02 (0-0.4) x10^3/uL Sodium (137-145) mmol/L Potassium 3.6 3.4 L (3.5-5.1) mmol/L Chloride (98-107) mmol/L Carbon Dioxide (22-30) mmol/L Anion Gap (5-15) MEQ/L BUN (7-17) mg/dL Creatinine (0.52-1.04) mg/dL Estimated GFR ML/MIN Glucose (74-106) mg/dL Calcium (8.4-10.2) mg/dL Magnesium (1.6-2.3) mg/dL Total Bilirubin (0.2-1.3) mg/dL AST (14-36) U/L ALT (0-35) U/L Alkaline Phosphatase (38-126) U/L Serum Total Protein (6.3-8.2) g/dL Albumin (3.5-5.0) g/dL 10/10/22 Range/Units 02:40 WBC (4.0-10.5) x10^3/uL RBC (4.1-5.4) x10^6/uL Hgb (12.0-16.0) g/dL Hct (35-47) % MCV (78-100) fL MCH (26-32) pg MCHC (32-36) g/dL RDW (11.5-14.0) % Plt Count (150-450) x10^3/uL MPV (7.5-11.0) fL Gran % (36.0-66.0) % Immature Gran % (Auto) (0.00-0.4) % Nucleat RBC Rel Count (0.00-0.1) % Eos # (Auto) (0-0.5) x10^3/uL Immature Gran # (Auto) (0.00-0.03) x10^3u/L Absolute Lymphs (auto) (1.0-4.6) x10^3/uL Absolute Monos (auto) (0.0-1.3) x10^3/uL Absolute Nucleated RBC (0.00-0.01) x10^3u/L Lymphocytes % (24.0-44.0) % Monocytes % (0.0-12.0) % Eosinophils % (0.00-5.0) % Basophils % (0.0-0.4) % Absolute Granulocytes (1.4-6.9) x10^3/uL Basophils # (0-0.4) x10^3/uL Sodium 130 L (137-145) mmol/L Potassium 3.6 (3.5-5.1) mmol/L Chloride 96 L (98-107) mmol/L Carbon Dioxide 29 (22-30) mmol/L Anion Gap 8.2 (5-15) MEQ/L BUN 5 L (7-17) mg/dL Creatinine 1.21 H (0.52-1.04) mg/dL Estimated GFR 47.5 ML/MIN Glucose 92 (74-106) mg/dL Calcium 7.1 L (8.4-10.2) mg/dL Magnesium 1.9 (1.6-2.3) mg/dL Total Bilirubin 0.50 (0.2-1.3) mg/dL AST 62 H (14-36) U/L ALT 28 (0-35) U/L Alkaline Phosphatase 87 (38-126) U/L Serum Total Protein 5.7 L (6.3-8.2) g/dL Albumin 2.7 L (3.5-5.0) g/dL Radiology Exams: Radiology Procedures Category Date Time Status ECHO W/2D AND DOPPLER [US] Routine Exams 10/09/22 09:07 Taken Assessment/Plan (1) CHF (congestive heart failure) Current Visit: No Status: Acute Qualifiers: Heart failure type: systolic Heart failure chronicity: acute on chronic Qualified Code(s): I50.23 - Acute on chronic systolic (congestive) heart failure Assessment & Plan: improved Code(s): I50.9 - HEART FAILURE, UNSPECIFIED (2) Hypomagnesemia Current Visit: No Status: Resolved Code(s): E83.42 - HYPOMAGNESEMIA (3) Hypokalemia Current Visit: Yes Status: Resolved Code(s): E87.6 - HYPOKALEMIA (4) Choking Current Visit: Yes Status: Acute Assessment & Plan: speech therapy eval requested Code(s): T17.308A - UNSP FOREIGN BODY IN LARYNX CAUSING OTH INJURY, INIT ENCNTR
[2022-10-10] MEDS: PROTONIX 40 MG IV IV SCH (10:39)
[2022-10-10] MEDS: Sodium Chloride 0.9% W/ 20 mEq KCl/LITER 1,000 ML IV SCH ×2 (10:39→21:45)
[2022-10-10] MEDS: BUMEX 1 MG IV SCH ×2 (10:40→18:41)
[2022-10-10] MEDS: ENOXAPARIN SODIUM SQ SCH (10:41)
[2022-10-10] MEDS: Zofran 4 MG/2 ML VIAL IV PRN ×2 (12:06→22:21)
[2022-10-10] MEDS: Sodium Chloride 0.9% 1000 ML 1,000 ML IV SCH (12:15)
[2022-10-10] MEDS: PATIENT OWN MEDICATION OP PRN (18:46)
[2022-10-11] MEDS: Ativan 2 MG/1 ML VIAL IV PRN ×2 (01:35→22:02)
[2022-10-11 04:57] LABS: Absolute Neutrophil Ct (ANC) 3.32 x10^3/uL (1.4-6.9); BASOPHIL % 0.5 % (0.0-0.4); Basophil (Absolute #) 0.03 x10^3/uL (0-0.4); Eosinophil (Absolute #) 0.22 x10^3/uL (0-0.5); Hematocrit 32.3 % (35-47); Hemoglobin 10.1 g/dL (12.0-16.0); IMMATURE GRAN # 0.05 x10^3u/L (0.00-0.03); IMMATURE GRAN % 0.9 % (0.00-0.4); Mean Cell Volume 88.3 fL (78-100); Mean Corpuscular Hemoglobin 27.6 pg (26-32); Mean Corpuscular Hgb Concent. 31.3 g/dL (32-36); Mean Platelet Volume 11.4 fL (7.5-11.0); Monocyte (Absolute #) 0.64 x10^3/uL (0.0-1.3); Monocytes % 11.7 % (0.0-12.0); Neutrophil % 60.9 % (36.0-66.0); Platelet Count 196 x10^3/uL (150-450); Red Blood Count 3.66 x10^6/uL (4.1-5.4); Red Cell Distribution Width 15.3 % (11.5-14.0); White Blood Count 5.5 x10^3/uL (4.0-10.5)
[2022-10-11 05:17] LABS: ALBUMIN 2.6 g/dL (3.5-5.0); ANION GAP 8.5 MEQ/L (5-15); BILIRUBIN,TOTAL 0.5 mg/dL (0.2-1.3); Calcium 7.1 mg/dL (8.4-10.2); Creatinine 1 1.28 mg/dL (0.52-1.04); EST GLOMERULAR FILTRATION RATE 44.5 ML/MIN; Potassium 3.3 mmol/L (3.5-5.1); Total Protein 5.8 g/dL (6.3-8.2)
[2022-10-11] MEDS ORDERED: Compazine 5 MG PO PRN (07:21)
[2022-10-11] MEDS: Sodium Chloride 0.9% W/ 20 mEq KCl/LITER 1,000 ML IV SCH (07:39)
[2022-10-11] MEDS: Zofran 4 MG/2 ML VIAL IV PRN ×2 (08:25→17:14)
[2022-10-11] MEDS: PROTONIX 40 MG IV IV SCH (08:30)
[2022-10-11] MEDS: ENOXAPARIN SODIUM SQ SCH (08:30)
[2022-10-11] MEDS: BUMEX 1 MG IV SCH ×2 (08:31→17:12)
[2022-10-11] MEDS: K-LYTE PO SCH ×3 (08:58→22:48)
[2022-10-11] MEDS: Robitussin-Dm Syrup PO SCH ×3 (08:59→22:49)
[2022-10-11] MEDS ORDERED: NON-FORMULARY ITEM (Cholecalciferol (Vitamin D3) [D3-5000] 125 MCG Capsule) PO SCH (10:00)
[2022-10-11] MEDS: Cordarone 200 MG PO SCH (10:03)
[2022-10-11] MEDS: NYSTOP POWDER 15 GM TP SCH ×2 (10:03→22:48)
[2022-10-11] MEDS: VITAMIN D PO SCH (10:03)
[2022-10-11] MEDS: SYNTHROID 112 MCG PO SCH (10:03)
[2022-10-11] MEDS: COREG 12.5 MG PO SCH ×2 (10:03→22:48)
[2022-10-11] MEDS: Compazine 10 MG/2 ML IV PRN (12:24)
[2022-10-11] MEDS: PATIENT OWN MEDICATION OP PRN (12:30)
[2022-10-11] MEDS: POTASSIUM CHLORIDE 20 mEq IN WATER 100ML 100 ML IV SCH ×2 (17:12→21:09)
--- NOTE | 2022-10-11 17:15 | XRAY ---
Indication: Vomiting. Weakness and lethargy. Obstruction. Multiple contiguous axial images obtained through the abdomen and pelvis without contrast. Comparison: August 23, 2022 Lung bases demonstrates new bibasilar dependent atelectasis, left greater than right. Incidental small right lower lobe and right infrahilar calcified granulomas. Heart remains borderline enlarged again with partially visualized right interatrial lipoma. Stable small hiatal hernia. Noncontrasted stomach and bowel loops remain nonobstructed again with normal appendix. Stable chronic pancreatitis calcifications, small right adrenal adenoma, bilateral renal cysts, tiny splenic calcified granulomas, and cholecystectomy clips. Near empty urinary bladder demonstrates new Ro balloon catheter. No free fluid/air. Remaining liver, pancreas, spleen, adrenal glands, kidneys, ureters, and bladder are unremarkable for noncontrast exam. Stable moderate aortoiliac calcification without AAA. Osseous structures intact again with osteopenia and mild/moderate degenerative changes throughout the spine. Impression: Other than new Ro balloon catheter in situ, no change CT abdomen/pelvis without contrast exam. Again chronic findings including borderline cardiomegaly with right interatrial lipoma, hiatal hernia, chronic pancreatitis calcifications, bilateral renal cysts, right adrenal adenoma, arteriosclerotic disease, chronic bony findings, and old granulomatous disease. No new/acute findings.
[2022-10-11] MEDS ORDERED: NON-FORMULARY ITEM (Atorvastatin Calcium [Atorvastatin Calcium] 80 MG Tablet) PO SCH (22:00)
[2022-10-11] MEDS: ZOCOR 20MG PO SCH (22:49)
[2022-10-11] MEDS: Zetia 10 MG PO SCH (22:49)
[2022-10-12] MEDS: Sodium Chloride 0.9% W/ 20 mEq KCl/LITER 1,000 ML IV SCH ×2 (00:11→10:33)
[2022-10-12] MEDS ORDERED: POTASSIUM CHLORIDE 20 mEq IN WATER 100ML 100 ML IV ONE ×2 (01:37→04:50)
[2022-10-12] MEDS: POTASSIUM CHLORIDE 20 mEq IN WATER 100ML 100 ML IV SCH ×2 (01:40→04:51)
[2022-10-12] MEDS: Compazine 10 MG/2 ML IV PRN ×2 (03:57→11:30)
[2022-10-12 05:32] LABS: Absolute Neutrophil Ct (ANC) 2.78 x10^3/uL (1.4-6.9); BASOPHIL % 0.4 % (0.0-0.4); Basophil (Absolute #) 0.02 x10^3/uL (0-0.4); Eosinophil % 4.3 % (0.00-5.0); Hematocrit 33.4 % (35-47); Hemoglobin 10.1 g/dL (12.0-16.0); IMMATURE GRAN # 0.06 x10^3u/L (0.00-0.03); IMMATURE GRAN % 1.3 % (0.00-0.4); Lymphocyte (Absolute #) 0.97 x10^3/uL (1.0-4.6); Lymphocytes % 20.7 % (24.0-44.0); Mean Cell Volume 88.6 fL (78-100); Mean Corpuscular Hemoglobin 26.8 pg (26-32); Mean Corpuscular Hgb Concent. 30.2 g/dL (32-36); Mean Platelet Volume 11.1 fL (7.5-11.0); Monocyte (Absolute #) 0.65 x10^3/uL (0.0-1.3); Monocytes % 13.9 % (0.0-12.0); Neutrophil % 59.4 % (36.0-66.0); Platelet Count 173 x10^3/uL (150-450); Red Blood Count 3.77 x10^6/uL (4.1-5.4); White Blood Count 4.7 x10^3/uL (4.0-10.5)
[2022-10-12 06:08] LABS: ALBUMIN 2.7 g/dL (3.5-5.0); BILIRUBIN,TOTAL 0.6 mg/dL (0.2-1.3); Calcium 7.3 mg/dL (8.4-10.2); Creatinine 1 1.38 mg/dL (0.52-1.04); EST GLOMERULAR FILTRATION RATE 40.8 ML/MIN; MAGNESIUM 1.2 mg/dL (1.6-2.3); Potassium 3.7 mmol/L (3.5-5.1); Total Protein 5.9 g/dL (6.3-8.2)
[2022-10-12] MEDS: Zofran 4 MG/2 ML VIAL IV PRN (08:34)
[2022-10-12] MEDS ORDERED: MAGNESIUM SULF 2 G/50 ML BAG 2 GM/50 ML PIGGYBACK IV ONE (10:01)
[2022-10-12] MEDS: ENOXAPARIN SODIUM SQ SCH (10:35)
[2022-10-12] MEDS: PROTONIX 40 MG IV IV SCH (10:36)
[2022-10-12] MEDS: BUMEX 1 MG IV SCH ×2 (10:36→16:27)
[2022-10-12] MEDS: NYSTOP POWDER 15 GM TP SCH ×2 (10:37→23:13)
[2022-10-12] MEDS: K-LYTE PO SCH ×3 (10:37→23:12)
[2022-10-12] MEDS: Cordarone 200 MG PO SCH (10:37)
[2022-10-12] MEDS: COREG 12.5 MG PO SCH ×2 (10:37→23:12)
[2022-10-12] MEDS: VITAMIN D PO SCH (10:38)
[2022-10-12] MEDS: Robitussin-Dm Syrup PO SCH ×3 (10:38→23:13)
[2022-10-12] MEDS: SYNTHROID 112 MCG PO SCH (10:38)
[2022-10-12] MEDS: PATIENT OWN MEDICATION OP PRN (16:27)
[2022-10-12] MEDS: Zetia 10 MG PO SCH (23:13)
[2022-10-12] MEDS: ZOCOR 20MG PO SCH (23:13)
[2022-10-13 05:22] LABS: Absolute Neutrophil Ct (ANC) 3.84 x10^3/uL (1.4-6.9); BASOPHIL % 0.5 % (0.0-0.4); Basophil (Absolute #) 0.03 x10^3/uL (0-0.4); Eosinophil % 3.6 % (0.00-5.0); Eosinophil (Absolute #) 0.22 x10^3/uL (0-0.5); Hematocrit 32.7 % (35-47); Hemoglobin 10.3 g/dL (12.0-16.0); IMMATURE GRAN # 0.05 x10^3u/L (0.00-0.03); IMMATURE GRAN % 0.8 % (0.00-0.4); Lymphocytes % 18.2 % (24.0-44.0); Mean Cell Volume 87.9 fL (78-100); Mean Corpuscular Hemoglobin 27.7 pg (26-32); Mean Corpuscular Hgb Concent. 31.5 g/dL (32-36); Mean Platelet Volume 11.4 fL (7.5-11.0); Monocytes % 13.2 % (0.0-12.0); Neutrophil % 63.7 % (36.0-66.0); Platelet Count 172 x10^3/uL (150-450); Red Blood Count 3.72 x10^6/uL (4.1-5.4); Red Cell Distribution Width 15.1 % (11.5-14.0)
[2022-10-13 06:06] LABS: ALBUMIN 2.7 g/dL (3.5-5.0); ANION GAP 11.4 MEQ/L (5-15); BILIRUBIN,TOTAL 0.6 mg/dL (0.2-1.3); Calcium 7.4 mg/dL (8.4-10.2); Creatinine 1 1.35 mg/dL (0.52-1.04); EST GLOMERULAR FILTRATION RATE 41.8 ML/MIN; MAGNESIUM 1.6 mg/dL (1.6-2.3); Potassium 3.7 mmol/L (3.5-5.1)
[2022-10-13] MEDS: Sodium Chloride 0.9% W/ 20 mEq KCl/LITER 1,000 ML IV SCH (08:03)
[2022-10-13] MEDS: ENOXAPARIN SODIUM SQ SCH (09:40)
[2022-10-13] MEDS: BUMEX 1 MG IV SCH (09:41)
[2022-10-13] MEDS: K-LYTE PO SCH (09:41)
[2022-10-13] MEDS: PROTONIX 40 MG IV IV SCH (09:41)
[2022-10-13] MEDS: NYSTOP POWDER 15 GM TP SCH (09:56)
[2022-10-13] MEDS: SYNTHROID 112 MCG PO SCH ×2 (10:30→10:43)
[2022-10-13] MEDS: COREG 12.5 MG PO SCH ×2 (10:30→10:43)
[2022-10-13] MEDS: Cordarone 200 MG PO SCH ×2 (10:30→10:43)
[2022-10-13] MEDS: Robitussin-Dm Syrup PO SCH (10:33)
[2022-10-13] MEDS: VITAMIN D PO SCH (10:33)
[2022-10-13] MEDS: Zofran 4 MG/2 ML VIAL IV PRN (10:37)
[2022-10-13 12:07] VITALS: BP 115/58; PULSE 76; O2SAT 97
--- NOTE | 2022-10-13 13:18 | PCM.DS ---
Discharge Summary Date of Admission: 10/07/22 10:26 Admitting Physician: RACHAEL CHAMBERS Primary Care Provider: CANDICE ROCKWELL DO Allergies Allergies lorazepam Adverse Reaction (Intermediate, Verified 09/23/22 11:04) "made me weird" [facility] Summary - Vitals & Intake/Output Vital Signs: Vital Signs Temperature 97.5 F 10/13/22 12:00 Pulse Rate 76 10/13/22 12:00 Respiratory Rate 18 10/13/22 12:00 Blood Pressure 115/58 10/13/22 12:00 O2 Sat by Pulse Oximetry 97 10/13/22 12:00 Intake & Output: Intake & Output 10/11/22 10/12/22 10/13/22 10/14/22 11:59 11:59 11:59 11:59 Intake Total 3959 2089 1941 Output Total 1900 1250 2750 Balance 9 839 -809 Weight 118.2 kg 117.8 kg - Lab Result Diagrams: 10/13/22 04:30 10/13/22 04:30 Lab Results-Last 24 Hrs: Lab Results-Last 24 Hours 10/13/22 10/13/22 Range/Units 04:30 04:30 WBC 6.0 (4.0-10.5) x10^3/uL RBC 3.72 L (4.1-5.4) x10^6/uL Hgb 10.3 L (12.0-16.0) g/dL Hct 32.7 L (35-47) % MCV 87.9 (78-100) fL MCH 27.7 (26-32) pg MCHC 31.5 L (32-36) g/dL RDW 15.1 H (11.5-14.0) % Plt Count 172 (150-450) x10^3/uL MPV 11.4 H (7.5-11.0) fL Gran % 63.7 (36.0-66.0) % Immature Gran % (Auto) 0.8 H (0.00-0.4) % Nucleat RBC Rel Count 0.0 (0.00-0.1) % Eos # (Auto) 0.22 (0-0.5) x10^3/uL Immature Gran # (Auto) 0.05 H (0.00-0.03) x10^3u/L Absolute Lymphs (auto) 1.10 (1.0-4.6) x10^3/uL Absolute Monos (auto) 0.80 (0.0-1.3) x10^3/uL Absolute Nucleated RBC 0.00 (0.00-0.01) x10^3u/L Lymphocytes % 18.2 L (24.0-44.0) % Monocytes % 13.2 H (0.0-12.0) % Eosinophils % 3.6 (0.00-5.0) % Basophils % 0.5 (0.0-0.4) % Absolute Granulocytes 3.84 (1.4-6.9) x10^3/uL Basophils # 0.03 (0-0.4) x10^3/uL Sodium 132 L (137-145) mmol/L Potassium 3.7 (3.5-5.1) mmol/L Chloride 93 L (98-107) mmol/L Carbon Dioxide 31 H (22-30) mmol/L Anion Gap 11.4 (5-15) MEQ/L BUN 6 L (7-17) mg/dL Creatinine 1.35 H (0.52-1.04) mg/dL Estimated GFR 41.8 ML/MIN Glucose 92 (74-106) mg/dL Calcium 7.4 L (8.4-10.2) mg/dL Magnesium 1.6 (1.6-2.3) mg/dL Total Bilirubin 0.60 (0.2-1.3) mg/dL AST 88 H (14-36) U/L ALT 30 (0-35) U/L Alkaline Phosphatase 82 (38-126) U/L Serum Total Protein 6.0 L (6.3-8.2) g/dL Albumin 2.7 L (3.5-5.0) g/dL - Radiology Exams Ordered Rad Exams-Entire Visit: Radiology Procedures Category Date Time Status ABDOMEN AND PELVIS W/0 CONTRAS [CT] Routine Exams 10/11/22 16:00 Completed - Procedures and Test Procedures and Tests throughout Hospitalization: Therapy Orders & Screens 10/06/22 23:41 BiPap/CPAP ROUTINE Comment: PT STATES SHE WEARS A CPAP OF 14CM H2O Diagnosis: weakness loss of appetite 10/09/22 08:53 PT Eval & Treat ( Order) ONCE Reason for Eval:: weakness Diagnosis: weakness loss of appetite for 1 week 10/11/22 08:20 Speech Therapy Eval & Treat [ Eval & Treat ( Order)] .as ordered Comment: Physician Instructions: Reason For Exam: Evaluate: Yes Treat: Yes Reason for Eval: choking Diagnosis: CHF, KEMAL Final Diagnosis/Problem List - Final Discharge Diagnosis/Problem (1) CHF (congestive heart failure) Current Visit: No Status: Acute Code(s): I50.9 - HEART FAILURE, UNSPECIFIED (2) Hypomagnesemia Current Visit: No Status: Resolved Code(s): E83.42 - HYPOMAGNESEMIA (3) Hypokalemia Current Visit: Yes Status: Resolved Code(s): E87.6 - HYPOKALEMIA (4) Choking Current Visit: Yes Status: Chronic Assessment & Plan: improved- negative swallow study Code(s): T17.308A - UNSP FOREIGN BODY IN LARYNX CAUSING OTH INJURY, INIT ENCNTR (5) CKD (chronic kidney disease) Current Visit: Yes Status: Chronic Assessment & Plan: improved since decreased oral intake- follows with Dr Cheema Code(s): N18.9 - CHRONIC KIDNEY DISEASE, UNSPECIFIED (6) Arrhythmia Current Visit: Yes Status: Chronic Assessment & Plan: Dr Saul follows - continue Amiodorone and blood thinner Code(s): I49.9 - CARDIAC ARRHYTHMIA, UNSPECIFIED (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 Assessment & Plan: was on Xarelto but off due to choking and currently on Lovenox 40 mg daily Code(s): Z79.01 - HALF-WAY (CURRENT) USE OF ANTICOAGULANTS - Discharge Disposition: DC TO ANY "OTHER" SNF Condition: Stable Prescriptions: New Enoxaparin Sodium [Enoxaparin Sodium] 40 mg SQ DAILY 30 Days Magnesium Oxide [Magnesium] 200 mg PO TID 30 Days #100 tab.chew Continue Cholecalciferol (Vitamin D3) [D3-5000] 125 mcg PO DAILY Potassium Chloride Tab* [Klor Con] 20 meq PO TID Levothyroxine Sodium 112 Mcg [Synthroid 112 Mcg] 112 mcg PO DAILY Bumetanide 2 mg PO DAILY Amiodarone HCl 200 mg PO DAILY Carvedilol 12.5 mg [Coreg 12.5 mg] 12.5 mg PO BID Prochlorperazine Maleate 5 mg* [Compazine 5 MG] 5 mg PO BID PRN 15 Days #30 tablet PRN Reason: Nausea Tobramycin/Dexamethasone [Tobradex Eye Drops] 1 drop OP Q6H Discontinued Rivaroxaban [Xarelto] 15 mg PO DAILY Atorvastatin Calcium 80 mg PO HS Ezetimibe 10 mg [Zetia 10 MG] 10 mg PO HS ALPRAZolam [Alprazolam] 1 mg PO BIDPRN PRN PRN Reason: Anxiety Additional Instructions: PT NEEDS APPT MADE WITH DR SAUL AT [facility] ORDERS: ADMIT TO SNF CARE FULL LIQUID DIET, ADVANCE TOLERATED ENSURE TID OXYGEN AT 2L/NC CPAP AT HS PT/OT EVAL AND TREAT SEE ATTACHED MED LIST Follow up with: CANDICE ROCKWELL DO [Primary Care Provider] -
--- NOTE | 2022-10-13 13:26 | XRAY ---
Indication: Productive cough. Comparison: October 06, 2022 Portable chest unchanged again demonstrating right midlung fibrosis/scarring and bilateral calcified granulomas. Heart remains enlarged with left AICD. No new/acute findings.
== END 2022-10-13 14:15 | DRG 292 ==
LOC: ED 17:43 → MED SURG 22:30 → OBSVTOIN 10-07 10:26
PROVIDERS: ADMIT General Practice; ATTEND Family Medicine
DX: I13.0 Hypertensive heart and chronic kidney disease with heart failure and stage 1 through stage 4 chronic kidney disease, or unspecified chronic kidney disease (principal); Z68.43 Body mass index [BMI] 50.0-59.9, adult; I50.9 Heart failure, unspecified; N18.9 Chronic kidney disease, unspecified; E83.42 Hypomagnesemia; E87.6 Hypokalemia; T17.308A Unspecified foreign body in larynx causing other injury, initial encounter; I49.9 Cardiac arrhythmia, unspecified; R53.83 Other fatigue; E66.01 Morbid (severe) obesity due to excess calories; Z79.899 Other long term (current) drug therapy; Z79.01 Long term (current) use of anticoagulants; Z20.828 Contact with and (suspected) exposure to other viral communicable diseases
CPT/HCPCS: 0241U; 36415; 71045; 74176; 80048; 80053; 81001; 83605; 83735; 83880; 84132; 84484; 85025; 85027; 85610; 85730; 87070; 87077; 87186; 93005; 93306; 94660; 99285; G0378; J1650; J2060; J2405; J3480; 97110-GP; A9270-GY; J3475